=== PATIENT | male | born 1960 | race Caucasian/White ===

== ENCOUNTER → 2017-06-29 08:52 | Outpatient (CLI) | payer MEDICARE, MEDICAID, SELFPAY ==
--- NOTE | 2017-06-29 09:03 | CT_ITS ---
CT chest wo/w con HISTORY: Follow-up pulmonary nodule, tobacco use, smoker ITS.REASON: PULMONARY NODULE, SMOKER ORDERING PHYSICIAN: Marc Matta PATIENT AGE: 56 years TECHNIQUE: Axial images obtained without and with contrast. Sagittal and coronal reformatted images are also generated and reviewed. CONTRAST: 75ml Isovue 370 I.V. COMPARISON: 03/30/2016 FINDINGS: There are few scattered small lymph nodes within mediastinum some of which are calcified. These do not appear significantly changed. Coronary artery calcifications and/or stents are noted. There is linear calcification posterior to the aortic root. This may indicate an anomalous course of the circumflex artery. CT angiogram of the coronary arteries may confirm this finding if clinically warranted. There is normal heart size. No evidence of pericardial effusion. No evidence of aortic aneurysm or central pulmonary embolus There is gas present within the esophagus which may be seen with reflux. There are centrilobular emphysematous changes with hyperinflation and attenuation of the peripheral pulmonary vessels along with bronchial thickening consistent with obstructive chronic bronchitis. Calcified granulomas are present in the right upper lobe. There is a noncalcified nodule measuring approximately 4 mm in the right upper lobe medially unchanged parenchymal opacity is present in the superior segment of the left lower lobe medially similar to the previous exam consistent with an area of fibrosis. There are some minimal atelectatic changes in the left lung base with slightly elevated left hemidiaphragm posteriorly. No lobar consolidation or collapse. No suspicious pulmonary nodules apparent. Calcification noted in the gallbladder suspicious for cholelithiasis. No acute bony anomalies. IMPRESSION: 1. Emphysema/obstructive chronic bronchitis with evidence of old granulomatous disease. Stable nodular opacities as previously described. 2. 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 This may be confirmed with CT angiogram of the coronary arteries. 3. Cholelithiasis
== END ==
PROVIDERS: Family Provider Emergency Medicine; PCP Emergency Medicine; Visit Provider Psychiatry & Neurology Neurology
DX: R91.1 Solitary pulmonary nodule (principal); F17.200 Nicotine dependence, unspecified, uncomplicated
CPT/HCPCS: 71270; Q9967

== ENCOUNTER → 2017-10-23 08:41 | Outpatient (CLI) | payer MEDICARE, MEDICAID, SELFPAY ==
--- NOTE | 2017-10-23 09:06 | MR_ITS ---
MR thoracic spine wo/w con, MR 3-d myelogram/MRCP HISTORY: Multiple sclerosis evaluation Headache. ITS.REASON: MS ORDERING PHYSICIAN: Marc Matta PATIENT AGE: 57 years TECHNIQUE: Standard multiplanar multiecho sequences are performed without and with gadolinium enhancement. FINDINGS: There is mild multilevel degenerative disc disease of the thoracic spine with disc desiccation. Is present from T5 to 12. There is mild thoracic scoliosis convex right. T10-T11: Degenerative disc disease with minimal bulging disc along with facet and ligamentum hypertrophy with mild bilateral foraminal narrowing. Degenerative disc disease T11-T12. There is partial fusion of T12-L1. No demyelinating plaques are evident within the thoracic spinal cord. No enhancing lesions apparent. The spinal cord ends at the L1 level. IMPRESSION: 1. Mild spondylosis of the thoracic spine as detailed above. 2. No evidence of demyelinating plaques or enhancing lesions.
--- NOTE | 2017-10-23 09:06 | MR_ITS ---
MR head/brain wo/w con HISTORY: Follow-up multiple sclerosis ITS.REASON: MS ORDERING PHYSICIAN: Marc Matta PATIENT AGE: 57 years COMPARISON: 06/22/2016 TECHNIQUE: Standard multiplanar multiecho sequences are performed without and with contrast. FINDINGS: No midline shift, mass effect, hydrocephalus, or enhancing lesions are evident. There is no evidence of acute infarction or abnormal restricted diffusion. There are extensive periventricular T2 white matter hyperintensities with cystic components. The previously noted new lesion in the left occipital lobe has decreased in size. Previously this abnormality measured 13 x 7 mm and now measures 10 x 3 mm. Additionally, the previously noted new lesion in the right parieto-occipital junction measuring 9.2 mm now measuring 6 mm. No new lesions are evident. Edema within the plaque in the left frontal parietal junction in the left frontal parietal junction has also somewhat improved. No enhancement evident of the plaques. Marked thinning of the corpus callosum once again noted. The cerebellopontine angles, cerebellum, and brainstem are unremarkable. There is slight increase T2 signal within the right aspect of the phillip posteriorly unchanged. There is mild mucosal thickening of sphenoid sinus on the left. IMPRESSION: 1. Overall slight improvement in the multiple white matter lesions consistent with multiple sclerosis as described above with decreased prominence of at least 3 areas as described above. 2. No new lesions evident IMPRESSION:
--- NOTE | 2017-10-23 09:06 | MR_ITS ---
MR cervical spine wo/w con HISTORY: Multiple sclerosis, evaluate for cervical cord involvement. Severe headaches. ITS.REASON: MS ORDERING PHYSICIAN: Marc Matta PATIENT AGE: 57 years COMPARISON: MRI 03-30-16 TECHNIQUE: Standard multiplanar multiecho sequences are performed without and with gadolinium enhancement. 3-D MIP and myelographic images are also rendered and reviewed FINDINGS: There is normal alignment. The craniocervical junction has an unremarkable appearance. No demyelinating plaques evident within the cervical cord. No enhancing lesions apparent. There is accentuation of the cervical lordosis as before . C2-C3: Unremarkable. C3-C4: Minimal central disc protrusion versus prominent posterior longitudinal ligament without impingement. C4-C5: Mild degenerative disc disease with minimal bulging disc slightly eccentric to the left along with left-sided facet hypertrophic change causing mild left-sided foraminal narrowing. There is narrowing of the canal at this level at 10 mm. No cord impingement. C5-C6: Mild degenerative disc disease with mild left foraminal narrowing from facet and uncovertebral hypertrophy. C6-C7: Mild degenerative disc disease. C7-T1: Unremarkable Overall no significant change from 03/30/2016. IMPRESSION: 1. Overall no significant change from 03/30/2016 2. No enhancing lesions or demyelinating plaques evident. 3. Cervical spondylosis as described above. Please see above for detailed description at each level. There is canal narrowing at 10 mm at C4-C5 without obvious impingement
[2017-10-23 09:08] LABS: Blood Urea Nitrogen 10 mg/dL (7-18); Creatinine,Serum 0.81 mg/dL (0.70-1.30); Estimated Glomerular Filt Rate 98 ml/min (>60); GFR (African American) 118 ML/MIN (>60)
== END ==
PROVIDERS: Family Provider Emergency Medicine; PCP Emergency Medicine; Visit Provider Psychiatry & Neurology Neurology
DX: G35 Multiple sclerosis (principal)
CPT/HCPCS: 36415; 70553; 72156; 72157; 76376; 82565; 84520

== ENCOUNTER → 2019-01-30 12:45 | Outpatient (CLI) | payer MEDICARE, MEDICAID, SELFPAY ==
--- NOTE | 2019-01-30 13:24 | MR_ITS ---
PROCEDURE: MR HEAD/BRAIN WO CON CLINICAL INDICATION: MS, MURMUR Follow-up multiple sclerosis COMPARISON: [facility] MRI-BRAIN W/WO from 06/22/2016 BRAINWW MR head/brain wo/w con from 10/23/[address] head/brain wo con from 01/18/2019 TECHNIQUE: Routine multiplanar multi echo sequences are performed without gadolinium enhancement. FINDINGS: There is generalized atrophy. No evidence of acute infarction. No midline shift. Patient has a history of multiple sclerosis. There are extensive periventricular and subcortical white matter changes which were felt to have increased on the previous CT scan. However, comparing the 2 MRI is of 01/30/2019 and 10/23/2017, the extensive white matter signal alteration does not appear significantly changed. No restricted diffusion. No evidence of acute infarction. The cerebellopontine angles, cerebellum, and brainstem are unremarkable. There is marked thinning of the corpus callosum as before. The pituitary and optic chiasm have an unremarkable appearance. No mastoid effusion or sinus air-fluid level. IMPRESSION: Overall stable MRI appearance of the brain. Diffuse white matter lesions are once again noted not significantly changed consistent with patient's given history of multiple sclerosis Dictated by: Jonh Cruz MD 02/02/2019 09:07 Signed by: <Electronically signed by Jonh Cruz MD in [place]> 02/02/2019 09:07
== END ==
PROVIDERS: PCP Emergency Medicine; Visit Provider Psychiatry & Neurology Neurology
DX: R01.1 Cardiac murmur, unspecified (principal); G35 Multiple sclerosis
CPT/HCPCS: 70551; 93306

== ENCOUNTER → 2019-04-12 07:02 | Outpatient (CLI) | payer MEDICARE, SELFPAY ==
--- NOTE | 2019-04-12 | CA_ITS ---
APPROVED REPORT Exam: Pharmacologic Technologist: Yady Lomeli, Ht: 5 ft 10 in Wt: 154 lbs BSA: 1.87 m2 HR: 66 bpm BP: 126/57 mmHg Rhythm: NSR,EARLY REPOLARIZATION INFERIORLY Medical History Medical History: HTN Medications: Lisinopril,,,,, Metoprolol,,,,, Gabapentin,,,,, AmiTRIPTYLINE,,,,, Cardiac Risk Factors: HTN, Smoking Stress Test Details Test: LEXISCAN HR Resting HR: 62 bpm Max Heart Rate (APMHR): 161 bpm Max HR Achieved: 97 bpm Target HR (85% APMHR): 136 bpm % of APMHR: 60 Recovery HR: 87 bpm BP Resting BP: 126.0/57.0 mmHg Max BP: 126.0/57.0 mmHg Recovery BP: 119.0/67.0 mmHg ECG Resting ECG: NSR,EARLY REPOLARIZATION INFERIORLY Clinical Reason for Termination: Completed Protocol Exercise duration: 04:09 min Highest Stage Achieved: Exercise capacity: 1.0 METs Stress ECG Conclusion DURING INFUSION PATIENT HAD NO SYMPTOMS. NO ARRHYTHMIAS/ECTOPY. < 1.5MM ST SEGMENT CHANGES. NON-DIAGNOSTIC. Test Summary REST . . . . . . . Sitting REST 08:42 . . 62 . 126/ 57 . . Stage 1 . . . . . . . Cardiolite injected Stage 1 01:00 . . 83 . . . . Stage 2 01:00 . . 96 . 122/ 58 . . Stage 3 01:00 . . 91 . 126/ 68 . . Stage 4 01:00 . . 88 . 123/ 68 . . Stage 4 01:09 . . 87 . 123/ 68 . Stop exercise at 04:09 RECOVERY 01:00 . . 87 . . . . RECOVERY 02:00 . . 85 . . . . RECOVERY 03:00 . . 82 . 124/ 64 . . RECOVERY 04:00 . . 80 . 124/ 65 . . RECOVERY 04:14 . . 78 . 124/ 65 . . Electronically signed by : Nathan Collier, 04/12/2019 14:37:56
--- NOTE | 2019-04-12 07:05 | NM_ITS ---
APPROVED REPORT Exam: Nuclear Stress Test Indication: HTN, TOB USE, FM. HX., C.P., VENESSA Patient Location: Outpatient Stress Tech: Sabrina Yani NC Tech:SHAYLEE Rose RT(R)(N) Ht: 5 ft 10 in Wt: 154 lbs HR: 66 bpm BP: 126/57 mmHg BSA: 1.87 m2 BMI: 22.0 History: HTN, TOB USE, FM. HX., C.P., VENESSA Procedure: Patient received a 0.4 mg of intravenous Lexiscan, resting heart rate 66 bpm, resting blood pressure 126/57 mmHg, with Lexiscan maximum heart rate achived was 83 bpm which is % of the maximum predicted heart rate and blood pressure was 122/58 mmHg. With Lexiscan, patient denied any complaint of chest pain. Cardiac Stress and Resting SPECT Images: Cardiac Stress and Resting SPECT images were obtained using technetium 99m Myoview 30.4 mCi stress and 10.09 mCi at rest. EF is low at 49%. There are fixed defects in the apex and inferior wall consistent with areas of infarction Decrease activity in the septum near the base of the heart which shows some filling in on rest images suggesting some ischemic change Conclusion: EF is low at 49%. There are fixed defects in the apex and inferior wall consistent with areas of infarction Decrease activity in the septum near the base of the heart which shows some filling in on rest images suggesting some ischemic change Electronically signed by : Jonh Cruz MD 04/12/2019 17:54:52
--- NOTE | 2019-04-12 07:05 | CA_ITS ---
APPROVED REPORT Janitorial Tech: KATINA Laterality: Bilateral Study Quality: Good Indications: dizziness and falls H/O CVA Doppler Spectral Velocity Analysis dICA (R) 76.50/23.50 cm/s dICA (L) 88.30/24.70 cm/s Jluis (R) 48.20/16.80 cm/s Jluis (L) 86.70/23.10 cm/s pICA (R) 91.20/22.50 cm/s pICA (L) 82.90/21.90 cm/s dCCA (R) 66.30/19.20 cm/s Vert (L) 28.30/5.30 cm/s pCCA (R) 72.20/18.70 cm/s Vert (R) 35.30/9.00 cm/s Findings Duplex evaluation demonstrates stenosis of the right proximal internal carotid artery in the range of 20-49% with PSV <140 cm/sec, EDV <100 cm/sec, and IC/CC Ratio <4.0.Duplex evaluation demonstrates stenosis of the left proximal internal carotid artery in the range of 20-49% with PSV <140 cm/sec, EDV <100 cm/sec, and IC/CC Ratio <4.0. Both appear to be upper end of scale.Antegrade flow seen bilateral vertebral arteries. Conclusion Duplex evaluation demonstrates stenosis of the right proximal internal carotid artery in the range of 20-49% with PSV <140 cm/sec, EDV <100 cm/sec, and IC/CC Ratio <4.0.Duplex evaluation demonstrates stenosis of the left proximal internal carotid artery in the range of 20-49% with PSV <140 cm/sec, EDV <100 cm/sec, and IC/CC Ratio <4.0. Both appear to be upper end of scale.Antegrade flow seen bilateral vertebral arteries. Electronically signed by : Jonh Cruz MD 04/12/2019 17:40:14
--- NOTE | 2019-04-12 09:10 | HMH.ITSHM ---
Current Home Medications as stated by this patient Carmine López JR or healthcare sales representative. [] gabapentin lisinopril amitriptyline metoprolol
== END ==
PROVIDERS: PCP Emergency Medicine; Visit Provider Nurse Practitioner Family
DX: I65.23 Occlusion and stenosis of bilateral carotid arteries; R42 Dizziness and giddiness; R06.02 Shortness of breath; R07.9 Chest pain, unspecified; R94.31 Abnormal electrocardiogram [ECG] [EKG]
CPT/HCPCS: 78452; 93017; 93880; A9502; J2785

== ENCOUNTER → 2019-05-08 06:54 | Outpatient (CLI) | payer MEDICARE, SELFPAY ==
--- NOTE | 2019-05-08 06:59 | CT_ITS ---
PROCEDURE: CT ANGIO CORONARY ARTERY CLINCAL INDICATION: cad Coronary artery disease, abnormal heart cath with nonvisualization of the circumflex artery. COMPARISON: [facility] from 05/02/2019 TECHNIQUE: IV Contrast: 100ml Optiray 350 Axial images obtained with sagittal and coronal reformats. All CT scans at the facility use one or more dose reduction, viz: automated exposure control, ma/kV adjustment per patient size (including targeted exams where dose is matched to indication, i.e. head), or iterative reconstruction technique. Standard gated CTA technique performed. The patient's heart rate was in the 60s therefore, no meds were needed to establish bradycardia. The images were reviewed with the patient on the CT table and deemed to be adequate. There were no immediate complications. Post processing performed on the [employer] workstation. FINDINGS: No aortic aneurysm or dissection of the aortic root. Left main: Eccentric calcific plaque is present at the distal left main coronary artery with approximately 30 percent stenosis. Lad: Eccentric plaque is present proximally with approximately 50 to 60 percent smooth segments stenosis.. This was estimated at 30 percent on the coronary angiogram which should be more accurate than the CT a especially with the moderate degree of calcific plaque which tends to overestimate the degree of stenosis on the CT angiogram. Calcific plaque tracks along the mid aspect of the LAD with segmental areas of narrowing up to 60 percent. The distal LAD has an unremarkable appearance. There does appear to be approximately 50 percent stenosis of the ostium of the 1st diagonal. Circumflex: The circumflex artery originates from the right side of the aorta with a separate ostium lateral to the ostium of the RCA. There does appear to be a high-grade stenosis at the ostium of the circumflex the greater than 60 percent. Extensive calcific plaque is present within the circumflex artery proximally with areas of stenosis up to 50 percent. The circumflex artery extends along the right lateral aspect of the aortic root and goes between the left ventricle and the left atrium. There is 6 stents of plaque in this portion of the circumflex artery with segmental areas of stenosis of greater than 60 percent. The circumflex then descends along the posterior aspect of the heart. The RCA is medium size vessel with some calcific plaque proximally. Motion artifact does somewhat obscure fine detail. The calcific plaque is eccentric with less than 50 percent stenosis. The RCA does not give rise to the posterior lateral branch to the left ventricle. There is: Dominant supply to the inferior wall by both the LAD and the RCA giving rise to the PDA Fibrotic changes are present in the lingula. IMPRESSION: 1. 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 This does not represent and inter arterial coarse. This is a non malignant course. 2. Multi-vessel calcific plaque including the distal left main, lad, RCA, and circumflex artery. Patient has had a recent cardiac catheterization and correlation with that exam is needed. The calcific plaque tends to overestimate the degree of stenosis. On the CT angiogram there is felt to be at least 60 percent stenosis of the mid LAD, severe stenosis of the ostium of the circumflex of greater than 60 percent and severe stenosis of the mid aspect of the circumflex of greater than 60 percent. Calcific plaque is present at the ostium of the RCA without significant stenosis. Dictated by: Jonh Cruz MD 05/08/2019 14:03 Electronically signed by Jonh Cruz MD in [place] 05/14/2019 09:03
[2019-05-08 07:26] VITALS: BP 143/64; PULSE 72; RESP 18; TEMP 36.6; O2SAT 98
[2019-05-08 07:31] VITALS: BP 130/69; PULSE 64; RESP 18; O2SAT 98
[2019-05-08 07:45] VITALS: BP 128/68; PULSE 64; RESP 18; O2SAT 99
[2019-05-08 08:00] VITALS: BP 117/65; PULSE 62; RESP 18; O2SAT 97
--- NOTE | 2019-05-08 08:15 | PC.NURSE ---
Pt out of preop to radiology, report given to radiology.
== END ==
PROVIDERS: PCP Emergency Medicine; Visit Provider Internal Medicine
DX: I25.10 Atherosclerotic heart disease of native coronary artery without angina pectoris (principal)
CPT/HCPCS: 75574; Q9967

== ENCOUNTER 2019-09-20 15:31 | Emergency (ER) | payer MEDICARE, SELFPAY ==
[2019-09-20 15:51] VITALS: BP 141/79; PULSE 71; RESP 17; TEMP 36.6; O2SAT 99; BMI 22.1
--- NOTE | 2019-09-20 15:57 | XR_ITS ---
PROCEDURE: XR PELVIS 1-2V CLINICAL INDICATION: fall Posttraumatic pain COMPARISON: Pelvis from 01/18/2019 TECHNIQUE: XR Pelvis AP View FINDINGS: No fracture or dislocation is evident. There are severe osteoarthritic changes of the right hip with osteosclerosis of the acetabulum and significant sub articular cystic changes of the femoral head No lytic or blastic change. IMPRESSION: No acute fracture. TECHNIQUE Osteoarthritis of the right hip Dictated by: Jonh Cruz MD 09/20/2019 16:43 Electronically signed by Jonh Cruz MD in [place] 09/20/2019 16:43
--- NOTE | 2019-09-20 15:57 | CT_ITS ---
PROCEDURE: CT HEAD/BRAIN WO CON CLINICAL INDICATION: fallls Fall with and trauma COMPARISON: HEADWO CT head/brain wo con from 01/18/2019 TECHNIQUE: Axial images obtained. All CT scans at the facility use one or more dose reduction, viz: automated exposure control, ma/kV adjustment per patient size (including targeted exams where dose is matched to indication, i.e. head), or iterative reconstruction technique. FINDINGS: No midline shift, mass effect, intracranial hemorrhage, hydrocephalus, or extra-axial fluid collection is evident. There is generalized atrophy with hypoattenuation of the periventricular white matter consistent with microangiopathic changes.. There are scattered areas decreased attenuation in the white matter in the periventricular region somewhat focal in nature in keeping with patient's history of multiple sclerosis similar to the previous exam. The calvarium has an unremarkable appearance. No mastoid effusion. No sinus air-fluid level. IMPRESSION: Atrophy with chronic changes, no acute finding. Scattered periventricular white matter hypodensities in keeping with patient's history multiple sclerosis Dictated by: Jonh Cruz MD 09/20/2019 16:49 Electronically signed by Jonh Cruz MD in [place] 09/20/2019 16:49
--- NOTE | 2019-09-20 15:57 | CT_ITS ---
PROCEDURE: CT CERVICAL SPINE WO CON CLINICAL INDICATION: fallls Posttraumatic pain, multiple falls with injury and pain COMPARISON: [facility] CT cervical spine wo con from 01/18/2019 TECHNIQUE: Axial images obtained with sagittal and coronal reformats. All CT scans at the facility use one or more dose reduction, viz: automated exposure control, ma/kV adjustment per patient size (including targeted exams where dose is matched to indication, i.e. head), or iterative reconstruction technique. Axial spiral CT scanning performed of the cervical spine beginning at the base of the skull and continuing to the upper T-spine. 3-D multiplanar reconstruction with 3-D manipulation of volumetric data set in image rendering was completed by the radiologist and/or technologist with the supervision of the radiologist on independent workstation. FINDINGS: There is normal alignment. No acute fracture or dislocation. There is mild multilevel cervical spondylosis with degenerative disc disease at C2-C3, C3-C4 with mild left foraminal narrowing, C4-C5 with small left paracentral anterior osteophyte, degenerative disc disease C5-C6 with mild left foraminal narrowing, mild bilateral foraminal narrowing C6-7. Lung apices are clear. Coronary artery calcifications are present. IMPRESSION: 1. No acute fracture. 2. Cervical spondylosis Dictated by: Jonh Cruz MD 09/20/2019 16:46 Electronically signed by Jonh Cruz MD in [place] 09/20/2019 16:46
--- NOTE | 2019-09-20 15:57 | XR_ITS ---
PROCEDURE: XR CHEST 2V CLINICAL HISTORY: falls Posttraumatic pain, fall with injury and pain, trauma protocol COMPARISON: CXR CHEST(2 VIEWS-NOT PORTABLE) from 03/14/[address] chest wo/w con from 06/29/2017 [id number] XR chest portable from 02/22/2018 Chest from 01/18/2019 FINDINGS: The cardiomediastinal silhouette and pulmonary vascularity are within normal limits. Calcified granuloma is present in the right midlung. There is a vague opacity in the left mid upper lung measuring approximately 3 cm. This is not readily apparent on the previous exam there are mild atelectatic changes in the left lung base. There is an area of eventration along the left hemidiaphragm and medially and posteriorly. There are changes of COPD Degenerative changes thoracic spine and shoulders with suspected subarticular cystic change of the right humeral head IMPRESSION: COPD with a vague nodular opacity in the left mid upper lung zone laterally possibly due to a pleural base nodule. Nonemergent CT may provide further evaluation. Dictated by: Jonh Cruz MD 09/20/2019 16:55 Electronically signed by Jonh Cruz MD in [place] 09/20/2019 16:55
[2019-09-20 16:22] LABS: Basophils # 0.1 K/mm3 (0-0.2); Basophils % 0.6 % (0.1-2.0); Eosinophils # 0.6 K/mm3 (0.0-0.4); Eosinophils % 4.6 % (0.1-12.0); Hematocrit 46.2 % (42.0-52.0); Hemoglobin 15.2 g/dL (14.1-18.0); Lymphocytes % 15.4 % (10-50); Mean Corpuscular HGB Conc 32.8 g/dL (31.8-35.4); Mean Corpuscular Hemoglobin 30.9 pg (27.0-31.2); Mean Corpuscular Volume 94.2 fl (80-94); Mean Platelet Volume 8.2 fl (7.4-10.4); Monocytes # 0.8 K/mm3 (0.1-1.0); Monocytes % 5.7 % (1.7-9.3); Neutrophils # 9.6 K/mm3 (1.8-7.8); Neutrophils % 73.6 % (37.0-80.0); Platelet Count 290 K/mm3 (142-424)
[2019-09-20 16:28] LABS: Chloride 99 mmol/L (98-107); Potassium 4.1 mmoL/L (3.5-5.1); Sodium 136 mmol/L (136-145)
[2019-09-20 16:31] LABS: Alanine Aminotransferase 14 U/L (12-78); Albumin Level 4.8 g/dl (3.5-5.0); Albumin/Globulin Ratio 1.4 (1.1-1.8); Alkaline Phosphatase 121 U/L (38-126); Anion Gap 14.1 mEq/L (5-15); Aspartate Amino Transferase 28 U/L (17-59); Bilirubin,Total 0.7 mg/dl (0.2-1.3); Blood Urea Nitrogen 11 mg/dl (9-20); Carbon Dioxide 27 mmol/L (22.0-30.0); Creatinine Clearance Estimated 97 mL/min (50-200); Estimated Glomerular Filt Rate 99 ml/min (>60); GFR (African American) 119 ML/MIN (>60); Globulin 3.4 g/dL (1.3-3.2); Glucose 94 mg/dl (74-100); Total Protein,Serum 8.2 g/dl (6.3-8.2)
[2019-09-20 16:32] LABS: Lactic Acid 1.8 mmol/L (0.7-2.1)
[2019-09-20 16:35] LABS: C-Reactive Protein 4.2 mg/L (0-4)
[2019-09-20 16:47] LABS: Troponin I < 0.01 ng/ml (0.00-0.034)
[2019-09-20 16:54] LABS: Erythrocyte Sedimentation Rate 3 mm/hr (0-20)
[2019-09-20 16:55] LABS: Microscopic, Urine URINE MICROSCOPIC (MICROSCOPIC)
[2019-09-20 16:57] LABS: Appearance,Urine CLEAR (Clear); Bilirubin,Urine Negative (Negative); Blood, Urine Negative (Negative); Color,Urine YELLOW (Yellow); Glucose,Urine (UA) Negative (Negative); Ketones,Urine Negative (Negative); Leukocyte Esterase,Urine Negative (Negative); Nitrate,Urine Negative (Negative); Protein,Urine Negative (Negative); Urobilinogen,Urine 0.2 EU/dl (0.2)
[2019-09-20 17:04] LABS: RBC,Urine Occasional #/hpf (0-3); Squamous Epithelial Cell,Urine Occasional #/hpf (0-5)
--- NOTE | 2019-09-20 18:36 | HMH.EDGENADL ---
ED Disposition Clinical Impression: Fall Qualifiers: Encounter type: initial encounter Qualified Code(s): W19.XXXA - Unspecified fall, initial encounter Chest pain Qualifiers: Chest pain type: unspecified Qualified Code(s): R07.9 - Chest pain, unspecified Disposition: Home, Self-Care Condition on Discharge: Good Additional Instructions: Reviewing your labs and radiology we are discharging you home at this time. No acute injury was noted on your x-rays or CTs. Recommend careful use of a walker whenever ambulating. Should you fall again, should your chest pain worsen, please return to the emergency department for further evaluation. Chest x-ray showed evidence of a pulmonary nodule. I would recommend outpatient CT scan of your chest for further evaluation after discussing this with your primary care physician. Referrals: Luis E Roque MD [Primary Care Provider] - - Critical Care Critical Care Time: No Attestation: On 09/20/19, the high probability of a clinically significant, sudden or life threatening deterioration of the following system(s) required my full and direct attention, intervention and personal management. The time I documented below is in addition to time spent performing reported procedures but includes the following listed in this critical care notation. Medical Decision Making - Sen Inquiry Pt receiving controlled substance: No Sen was queried for this patient: No Vital Signs: 09/20/19 15:51 Temperature 97.8 F Temperature Source Oral Pulse Rate [Right Radial] 71 Respiratory Rate 17 Blood Pressure [Right Arm] 141/79 H Blood Pressure Mean [Right Arm] 99 02 Sat by Pulse Oximetry 99 Oxygen Delivery Method Room Air - Lab Data Lab Results 09/20/19 16:10: Troponin I < 0.01, C-Reactive Protein 4.2 H 09/20/19 16:10: WBC 13.0 H, RBC 4.90, Hgb 15.2, Hct 46.2, MCV 94.2 H, MCH 30.9, MCHC 32.8, RDW 14.0, Plt Count 290, MPV 8.2, Neut % (Auto) 73.6, Lymph % (Auto) 15.4, [place] % (Auto) 5.7, Eos % (Auto) 4.6, Baso % (Auto) 0.6, Neut # (Auto) 9.6 H, Lymph # (Auto) 2.0, [place] # (Auto) 0.8, Eos # (Auto) 0.6 H, Baso # (Auto) 0.1, ESR 3 09/20/19 16:10: Sodium 136, Potassium 4.1, Chloride 99, Carbon Dioxide 27, Anion Gap 14.1, BUN 11, Creatinine 0.80, Estimated Creat Clear 97, Estimated GFR 99, Est GFR ( Amer) 119, Glucose 94, Calcium 10.0, Total Bilirubin 0.7, AST 28, ALT 14, Alkaline Phosphatase 121, Total Protein 8.2, Albumin 4.8, Globulin 3.4 H, Albumin/Globulin Ratio 1.4 09/20/19 16:10: Lactate 1.8 09/20/19 16:10: Influenza Type A Ag Negative, Influenza Type B Ag Negative 09/20/19 16:10: D-Dimer 327 09/20/19 16:20: Urine Color Yellow, Urine Appearance Clear, Urine pH 7.0, Ur Specific [place] 1.010, Urine Protein Negative, Urine Glucose (UA) Negative, Urine Ketones Negative, Urine Blood Negative, Urine Nitrate Negative, Urine Bilirubin Negative, Urine Urobilinogen 0.2, Ur Leukocyte Esterase Negative, Urine RBC Occasional, Urine WBC None, Ur Squamous Epith Cells Occasional, Urine Bacteria None 09/20/19 18:45: Troponin I < 0.01 Result diagrams: 09/20/19 16:10 09/20/19 16:10 Orders (Tests/Meds): ED MEDICATIONS Discontinued Medications Generic Name Dose Route Start Last Admin Trade Name Freq PRN Reason Stop Dose Admin Sodium Chloride 1,000 mls @ 999 mls/hr 09/20/19 16:00 09/20/19 16:41 Sod Chlor 0.9% 1000ml Bag IV 09/20/19 17:00 999 mls/hr .Q1H1M CAROLA Administration ORDERS Category Date Time Status Troponin I Q3H Lab 09/20/19 22:00 Ordered Blood Culture Stat Micro 09/20/19 16:10 Received Medical Decision Narrative: In summary patient is a 59-year-old male with a past medical history of multiple sclerosis, who presents the emergency department for evaluation after a fall. Patient complains of left-sided chest pain. Patient's vital signs within normal limits. Differential diagnosis includes but is not limited to rib fracture, rib bruising, ACS, pulmonary embol
[2019-09-20 19:08] LABS: D-Dimer 327 ng/mL (0-400)
[2019-09-20 19:16] LABS: Troponin I < 0.01 ng/ml (0.00-0.034)
[2019-09-20 19:55] VITALS: BP 135/76; PULSE 68; RESP 17; TEMP 36.6; O2SAT 99
== END 2019-09-20 19:45 | disposition home or self-care (01) ==
PROVIDERS: Emergency Provider Emergency Medicine; PCP Emergency Medicine
DX: R07.9 Chest pain, unspecified (principal); S09.8XXA Other specified injuries of head, initial encounter; R29.6 Repeated falls; G35 Multiple sclerosis; Z79.899 Other long term (current) drug therapy; J44.9 Chronic obstructive pulmonary disease, unspecified; I25.10 Atherosclerotic heart disease of native coronary artery without angina pectoris; I10 Essential (primary) hypertension; Z87.39 Personal history of other diseases of the musculoskeletal system and connective tissue; Z72.0 Tobacco use; Z82.49 Family history of ischemic heart disease and other diseases of the circulatory system; Z83.438 Family history of other disorder of lipoprotein metabolism and other lipidemia
CPT/HCPCS: 70450; 71046; 72125; 72170; 80053; 81001; 83605; 84484; 85025; 85378; 85651; 86140; 87040; 87077; 87275; 87276; 96365; 99284

== ENCOUNTER → 2020-04-13 08:50 | Outpatient (CLI) | payer MEDICARE, SELFPAY ==
--- NOTE | 2020-04-13 09:11 | MR_ITS ---
PROCEDURE: MR HEAD/BRAIN WO/W CON CLINICAL INDICATION: MS, FREQUENT FALLS, IMPAIRED GAIT MS FOLLOW UP, PT DIAGNOSED WITH MS 3 YEARS AGO, FREQUENT FALLS, RT LEG WEAKNESS. COMPARISON: MR MR HEAD/BRAIN WO CON from 01/30/[address] HEAD/BRAIN WO CON from 09/20/[address] CERVICAL SPINE WO CON from 09/20/2019 TECHNIQUE: Routine multiplanar multi echo sequences are performed without gadolinium enhancement. FINDINGS: No midline shift, mass effect, intracranial hemorrhage, or hydrocephalus is evident. No evidence of acute infarction. The cerebellopontine angle, cerebellum, and brainstem have an unremarkable appearance. There are diffuse periventricular T2 white matter hyperintensities the as previously described. Within these hyperintensities are heterogeneous areas of decreased T2 signal there is some involvement of the basal ganglia and also of the corpus callosum. For the most part these are not significantly changed. There is 1 T2 hyperintensity in the right frontal parietal region series 6, image 17 which is slightly more prominent. Many of these lesions are hypointense on T1 suggesting encephalomalacia change. No enhancing lesions are evident. No midline shift or mass effect. DIR images are obtained with no additional abnormalities apparent. The upper cervical cord is not well delineated due to overlying artifact. No mastoid effusion or sinus air-fluid level. IMPRESSION: Diffuse periventricular and subcortical T2 white matter hyperintensity some of which show decreased T1 signal centrally consistent with patient's history of multiple sclerosis with encephalomalacia changes of many of the lesions. No new lesions or enhancing lesions are evident. One lesion in the right parietal frontal area is slightly larger compared to the previous exam. Dictated by: Jonh Cruz MD 04/15/2020 09:19 Jonh Cruz MD in [place] 04/15/2020 09:19
[2020-04-13 09:16] LABS: Blood Urea Nitrogen 13 mg/dl (9-20); Estimated Glomerular Filt Rate 86 ml/min (>60); GFR (African American) 104 ML/MIN (>60)
== END ==
PROVIDERS: PCP Emergency Medicine; Visit Provider Psychiatry & Neurology Neurology
DX: G35 Multiple sclerosis (principal); R26.9 Unspecified abnormalities of gait and mobility; M54.5 Low back pain; Z79.899 Other long term (current) drug therapy
CPT/HCPCS: 36415; 70553; 82565; 84520; A9576

== ENCOUNTER → 2020-06-01 17:56 | Outpatient (CLI) | payer MEDICARE, SELFPAY ==
[2020-06-01 19:01] LABS: Alanine Aminotransferase 14 U/L (12-78); Albumin Level 4.8 g/dl (3.5-5.0); Albumin/Globulin Ratio 1.4 (1.1-1.8); Alkaline Phosphatase 122 U/L (38-126); Anion Gap 11.5 mEq/L (5-15); Aspartate Amino Transferase 26 U/L (17-59); Bilirubin,Total 0.8 mg/dl (0.2-1.3); Blood Urea Nitrogen 13 mg/dl (9-20); Calcium 10.1 mg/dl (8.4-10.2); Carbon Dioxide 31 mmol/L (22.0-30.0); Chloride 99 mmol/L (98-107); Estimated Glomerular Filt Rate 86 ml/min (>60); GFR (African American) 104 ML/MIN (>60); Globulin 3.4 g/dL (1.3-3.2); Glucose 115 mg/dl (74-100); Potassium 4.5 mmoL/L (3.5-5.1); Sodium 137 mmol/L (136-145); Total Protein,Serum 8.2 g/dl (6.3-8.2)
[2020-06-01 19:04] LABS: Basophils # 0.1 K/mm3 (0-0.2); Basophils % 1.2 % (0.1-2.0); Eosinophils # 0.2 K/mm3 (0.0-0.4); Eosinophils % 2.8 % (0.1-12.0); Hematocrit 47.8 % (42.0-52.0); Hemoglobin 15.4 g/dL (14.1-18.0); Lymphocytes # 1.9 K/mm3 (0.7-4.5); Lymphocytes % 23.2 % (10-50); Mean Corpuscular HGB Conc 32.2 g/dL (31.8-35.4); Mean Corpuscular Hemoglobin 31.3 pg (27.0-31.2); Mean Platelet Volume 9.4 fl (7.4-10.4); Monocytes # 0.6 K/mm3 (0.1-1.0); Monocytes % 7.8 % (1.7-9.3); Neutrophils # 5.4 K/mm3 (1.8-7.8); Neutrophils % 65.1 % (37.0-80.0); Platelet Count 349 K/mm3 (142-424); Red Blood Count 4.92 M/mm3 (4.60-6.20); Red Cell Distribution Width 14.6 % (11.5-17.5); White Blood Count 8.3 K/mm3 (4.8-10.8)
[2020-06-03 11:22] LABS: Hep A Ab, IgM Negative (Negative); Hepatitis B Core Antibody IgM Negative (Negative); Hepatitis B Surface Antigen Negative (Negative)
[2020-06-03 12:04] LABS: HIV Screen 4th Generation wRfx Non Reactive (Non Reactive); Hepatitis C Antibody <0.1 s/co ratio (0.0-0.9)
== END ==
PROVIDERS: Visit Provider Physician Assistant
DX: G35 Multiple sclerosis (principal); W19.XXXA Unspecified fall, initial encounter; Z20.2 Contact with and (suspected) exposure to infections with a predominantly sexual mode of transmission; Z11.4 Encounter for screening for human immunodeficiency virus [HIV]; Z11.59 Encounter for screening for other viral diseases
CPT/HCPCS: 80053; 80074; 85025; 86703; G0432

== ENCOUNTER → 2021-03-26 19:45 | Outpatient (CLI) | payer MEDICARE, SELFPAY ==
[2021-03-26 19:54] LABS: Basophils # 0.1 K/mm3 (0-0.2); Basophils % 0.8 % (0.1-2.0); Eosinophils # 0.2 K/mm3 (0.0-0.4); Eosinophils % 1.4 % (0.1-12.0); Hematocrit 47.1 % (42.0-52.0); Hemoglobin 15.1 g/dL (14.1-18.0); Lymphocytes # 1.9 K/mm3 (0.7-4.5); Lymphocytes % 17.2 % (10-50); Mean Corpuscular HGB Conc 32.1 g/dL (31.8-35.4); Mean Corpuscular Hemoglobin 31.5 pg (27.0-31.2); Mean Corpuscular Volume 98.3 fl (80-94); Monocytes # 0.8 K/mm3 (0.1-1.0); Monocytes % 7.5 % (1.7-9.3); Platelet Count 300 K/mm3 (142-424); Red Blood Count 4.79 M/mm3 (4.60-6.20); Red Cell Distribution Width 13.8 % (11.5-17.5); White Blood Count 10.9 K/mm3 (4.8-10.8)
[2021-03-26 20:10] LABS: Alanine Aminotransferase 13 U/L (12-78); Albumin Level 4.3 g/dl (3.5-5.0); Albumin/Globulin Ratio 1.5 (1.1-1.8); Alkaline Phosphatase 102 U/L (38-126); Anion Gap 9.7 mEq/L (5-15); Aspartate Amino Transferase 28 U/L (17-59); Bilirubin,Total 0.6 mg/dl (0.2-1.3); Blood Urea Nitrogen 9 mg/dl (9-20); Calcium 9.4 mg/dl (8.4-10.2); Carbon Dioxide 29 mmol/L (22.0-30.0); Chloride 104 mmol/L (98-107); Cholesterol 178 mg/dl (140-200); Estimated Glomerular Filt Rate 115 ml/min (>60); GFR (African American) 139 ML/MIN (>60); Globulin 2.8 g/dL (1.3-3.2); Glucose 107 mg/dl (74-100); Potassium 4.7 mmoL/L (3.5-5.1); Sodium 138 mmol/L (136-145); Total Protein,Serum 7.1 g/dl (6.3-8.2); Triglycerides 75 mg/dl (30-150); VLDL Cholesterol 15 mg/dL (0-40)
[2021-03-26 20:20] LABS: Amphetamine/Metha Screen,Urine Negative ng/ml (<1000); Barbiturates Screen,Urine Negative ng/ml (<200)
[2021-03-26 20:21] LABS: Direct LDL Cholesterol 47.15 mg/dL (100-129)
[2021-03-26 20:21] LABS: Benzodiazepines Screen,Urine Negative ng/ml (<200); Cannabinoid Screen,Urine Negative ng/ml (<50)
[2021-03-26 20:22] LABS: Cocaine Screen,Urine Negative ng/ml (<300)
[2021-03-26 20:23] LABS: Methadone Screen,Urine Negative ng/ml (<300); Opiate Screen,Urine Negative ng/ml (<300)
[2021-03-26 20:24] LABS: Chol/HDL Ratio 1.5 (1-3.5); HDL Cholesterol 115 mg/dl (40-60)
[2021-03-26 20:24] LABS: Phencyclidine Screen,Urine Negative ng/ml (<25)
[2021-03-26 20:27] LABS: T4 (Thyroxine) 6.2 ug/dl (5.53-11.0)
[2021-03-26 20:40] LABS: Thyroid Stimulating Hormone 0.82 uIU/mL (0.465-4.68)
[2021-04-04 03:52] LABS: 1,25 Dihydroxy Vitamin D 56 pg/mL (.); 1,25-Dihydroxy, Vitamin D-2 <10 pg/mL (.); 1,25-Dihydroxy, Vitamin D-3 53 pg/mL (.)
== END ==
PROVIDERS: Visit Provider Nurse Practitioner Family
DX: M47.812 Spondylosis without myelopathy or radiculopathy, cervical region (principal); G89.29 Other chronic pain; M54.9 Dorsalgia, unspecified; W19.XXXA Unspecified fall, initial encounter; I10 Essential (primary) hypertension; I25.10 Atherosclerotic heart disease of native coronary artery without angina pectoris
CPT/HCPCS: 80053; 80061; 80305; 82652; 84436; 84443; 85025

== ENCOUNTER → 2021-05-14 13:10 | Outpatient (CLI) | payer MEDICARE, MEDICAID, SELFPAY ==
--- NOTE | 2021-05-14 13:11 | CA_ITS ---
APPROVED REPORT EXAM: Comprehensive 2D, Doppler, and color-flow Echocardiogram Whipped Topping Mixer: Mar Ayers RT(R) Ht: 5 ft 10 in Wt: 155lbs BSA: 1.87 BP: 142/66 mmHg Indications: Smoker, COPD, murmur, HTN, MS, abn EKG. Very limited images due to lung interference and limited mobility secondary to MS. M-Mode Dimensions RVDd 2.19 cm (0.9-2.6) LVDd 3.84 cm (3.5-5.7) LVDs 2.95 cm (3.5-5.7) IVSd 1.21 cm (0.6-1.1) PWd 0.67 cm (0.6-1.1) EF (Teich) 47.10% FS 23.20% EDV (Teich) 63.50 mL ESV (Teich) 33.60 mL Conclusion 1. Limited echocardiogram was performed, it is very technically difficult study because of the patient factors and poor acoustic windows. 2. Probably preserved left ventricular systolic function, estimated ejection fraction 55%, with no obvious wall motion abnormality in the visualized segment. 3. No significant pericardial effusion noted. Electronically signed by : Shelton Alcazar MD 05/14/2021 15:43:14
== END ==
PROVIDERS: PCP Nurse Practitioner Family; Visit Provider Nurse Practitioner Family
DX: G35 Multiple sclerosis (principal); I10 Essential (primary) hypertension; I25.10 Atherosclerotic heart disease of native coronary artery without angina pectoris; I35.1 Nonrheumatic aortic (valve) insufficiency; J44.9 Chronic obstructive pulmonary disease, unspecified; R01.1 Cardiac murmur, unspecified; R94.31 Abnormal electrocardiogram [ECG] [EKG]
CPT/HCPCS: 93306

== ENCOUNTER 2021-07-23 13:54 | Inpatient (IN) | payer MEDICARE, MEDICAID, SELFPAY ==
[2021-07-23] VITALS (8 sets, daily range): BP systolic 91–127; BP diastolic 52–68; PULSE 60–97; RESP 12–20; TEMP 36.4–39; O2SAT 90–99; BMI 20.7; BMI 20.9
--- NOTE | 2021-07-23 14:10 | XR_ITS ---
FINAL REPORT CLINICAL HISTORY: PROD COUGH COMPARISON: September 20, 2019 FINDINGS: SINGLE VIEW CHEST. The heart is normal in size. The mediastinum is unremarkable. there is hyperinflation consistent with COPD. There are new, left greater than right, pulmonary opacities consistent with pneumonia.. There is no pneumothorax. IMPRESSION: New, left greater than right, pneumonia. Reviewed, Interpreted and Dictated by Paul Morrison III, MD Transcribed by Elyse Cr Authenticated by Paul Morrison III, MD on 07/23/2021 03:28:30 PM [facility]
[2021-07-23 14:16] LABS: Influenza A, PCR Not Detected (NotDetected); Influenza B, PCR Not Detected (NotDetected)
[2021-07-23 14:20] LABS: Microscopic, Urine URINE MICROSCOPIC (MICROSCOPIC)
[2021-07-23 14:24] LABS: Basophils # 0.1 K/mm3 (0-0.2); Basophils % 0.3 % (0.1-2.0); Eosinophils % 0.1 % (0.1-12.0); Hematocrit 41.5 % (42.0-52.0); Hemoglobin 13.5 g/dL (14.1-18.0); Lymphocytes # 0.5 K/mm3 (0.7-4.5); Lymphocytes % 3.1 % (10-50); Mean Corpuscular HGB Conc 32.6 g/dL (31.8-35.4); Mean Corpuscular Hemoglobin 30.7 pg (27.0-31.2); Mean Corpuscular Volume 94.2 fl (80-94); Mean Platelet Volume 8.8 fl (7.4-10.4); Monocytes # 0.7 K/mm3 (0.1-1.0); Monocytes % 4.3 % (1.7-9.3); Neutrophils # 15.4 K/mm3 (1.8-7.8); Neutrophils % 92.2 % (37.0-80.0); Platelet Count 629 K/mm3 (142-424); Red Cell Distribution Width 14.5 % (11.5-17.5); White Blood Count 16.8 K/mm3 (4.8-10.8)
[2021-07-23 14:25] LABS: Chloride 93 mmol/L (98-107); Potassium 3.1 mmoL/L (3.5-5.1); Sodium 127 mmol/L (136-145)
--- NOTE | 2021-07-23 14:27 | ECG_ITS ---
APPROVED REPORT Exam: Resting ECG HR:88 bpm ECG Measurements Heart Rate 88 AXES OR 134 P 68 QRSd 98 QRS 76 QT 391 T 67 QTc 437 Conclusion SINUS RHYTHM NORMAL ECG UNCONFIRMED REPORT Electronically signed by : Eduardo Sotelo MD 07/24/2021 07:36:24
[2021-07-23 14:28] LABS: Anion Gap 12.1 mEq/L (5-15); Blood Urea Nitrogen 12 mg/dl (9-20); Carbon Dioxide 25 mmol/L (22.0-30.0); Creatinine Clearance Estimated 75 mL/min (50-200); Estimated Glomerular Filt Rate 98 ml/min (>60); GFR (African American) 119 ML/MIN (>60)
[2021-07-23 14:29] LABS: Calcium 7.8 mg/dl (8.4-10.2); Glucose 119 mg/dl (74-100)
[2021-07-23 14:34] LABS: MANUAL DIFFERENTIAL MANUAL DIFFERENTIAL (MANUAL DIFF)
[2021-07-23 14:40] LABS: Troponin I 0.02 ng/ml (0.00-0.034)
[2021-07-23 14:41] LABS: Lymphocytes % 4 % (10-50); Monocytes % 3 % (2-9); Neutrophils % 93 % (42-76); RBC Morphology Normal; Total Cells Counted 100
[2021-07-23 14:42] LABS: Lactic Acid 4.1 mmol/L (0.7-2.1); Platelet Estimate Moderate Increase
--- NOTE | 2021-07-23 14:42 | PC.NURSE ---
Reymundo from the lab called a lactic of 4.1 MD notified
[2021-07-23 14:49] LABS: Appearance,Urine SL CLOUDY (Clear); Blood, Urine Negative (Negative); Color,Urine YELLOW (Yellow); Glucose,Urine (UA) Negative (Negative); Ketones,Urine 1+ (Negative); Leukocyte Esterase,Urine 1+ (Negative); Nitrate,Urine Negative (Negative); Protein,Urine Negative (Negative); Specific Gravity, Urine 1.015 (1.005-1.030); Urobilinogen,Urine 0.2 EU/dl (0.2)
[2021-07-23 15:03] LABS: Coronavirus 19, PCR Detected (NotDetected)
[2021-07-23 15:07] LABS: Bilirubin,Urine 1+ (Negative)
[2021-07-23 15:08] LABS: Amorphous Sediment,Urine 1+ /lpf; Bacteria,Urine Trace /lpf; RBC,Urine Occasional #/hpf (0-3); WBC,Urine Occasional #/hpf (0-3)
--- NOTE | 2021-07-23 15:12 | HMH.PHACONS ---
- Pharmacy Consult Date: 07/23/21 Time: 15:12 Referring provider: DR. COOL Reason for Consult:: VANCOMYCIN DOSING Allergies and ADEs:: Allergies Allergy/AdvReac Type Severity Reaction Status Date / Time No Known Allergies Allergy Verified 04/27/21 09:00 Home Medications:: Home Medications Medication Instructions Recorded Confirmed Type ocrelizumab 30 mg/mL intravenous 600 mg IV [id number] 04/02/19 04/27/21 History solution Duloxetine HCl 60 mg PO DAILY 05/08/19 04/27/21 History baclofen 10 mg tablet 10 mg PO tab 01/27/21 04/27/21 History aspirin 81 mg tablet,delayed 81 mg PO DAILY #30 tab 04/27/21 04/27/21 Rx release gabapentin 600 mg tablet 600 mg PO TID tab 04/27/21 04/27/21 History metoprolol succinate 25 mg 25 mg PO DAILY #90 tab 04/27/21 04/27/21 Rx tablet,extended release 24 hr Height: 1.83 m Weight: 69.4 kg Laboratory Results:: Laboratory Results - last 24 hr 07/23/21 13:55: WBC 16.8 H, RBC 4.40 L, Hgb 13.5 L, Hct 41.5 L, MCV 94.2 H, MCH 30.7, MCHC 32.6, RDW 14.5, Plt Count 629 H, MPV 8.8, Neut % (Auto) 92.2 H, Lymph % (Auto) 3.1 L, [place] % (Auto) 4.3, Eos % (Auto) 0.1, Baso % (Auto) 0.3, Neut # (Auto) 15.4 H, Lymph # (Auto) 0.5 L, [place] # (Auto) 0.7, Eos # (Auto) 0.0, Baso # (Auto) 0.1, Total Counted 100, Neutrophils % (Manual) 93 H, Lymphocytes % (Manual) 4 L, Monocytes % (Manual) 3, Platelet Estimate Moderate increase, RBC Morphology Normal 07/23/21 13:55: Sodium 127 L, Potassium 3.1 L, Chloride 93 L, Carbon Dioxide 25, Anion Gap 12.1, BUN 12, Creatinine 0.80, Estimated Creat Clear 75, Estimated GFR 98, Est GFR ( Amer) 119, Glucose 119 H, Calcium 7.8 L, Troponin I 0.02 07/23/21 13:55: Lactate 4.1 H 07/23/21 13:55: SARS-CoV-2 (PCR) Detected A, Influenza A Untype (PCR) Not detected, Influenza Type B (PCR) Not detected 07/23/21 13:55: Urine Color Yellow, Urine Appearance Sl cloudy, Urine pH 6.0, Ur Specific [place] 1.015, Urine Protein Negative, Urine Glucose (UA) Negative, Urine Ketones 1+, Urine Blood Negative, Urine Nitrate Negative, Urine Bilirubin 1+ A, Urine Urobilinogen 0.2, Ur Leukocyte Esterase 1+ A, Urine RBC Occasional, Urine WBC Occasional, Ur Squamous Epith Cells None, Amorphous Sediment 1+, Urine Bacteria Trace Medical History: Reports:: Chronic Obstructive Pulmonary Disease (COPD), Coronary Artery Disease, Hypertension Denies:: Cancer, Diabetes Mellitus Type 1, Diabetes Mellitus Type 2, Internal Pacemaker, MRSA, Seizures Assessment and Plan - Assessment and plan all Dx Assessment and Plan for all problems:: Pharmacokinetic dosing service Objective: Patient: Floor: Age: 61 yo Serum creatinine: 0.80 mg/dL Height: 72.0 Inches Weight (kg): 69.4 Assessment: IBW (kg): 77.60 Dosing wt(kg): 69.4 Estimated Creatinine clearance (ml/min): 94.0 CRCL method: Cockcroft and Gault using ibw(default). Drug selected: Vancomycin Loading dose (mg): Vd (liters): 48.6 (factor used: 0.7 L/kg) Jeremy (hr-1): 0.082 Half life (hrs): 8.45 CLvanco=?? 3.985 L/hr Recommended dose: 1000 mg Interval: 12 hrs Infusion time (hrs): 2.0 Predicted peak (mcg/mL): 30.3 Predicted trough (mcg/mL): 13.35 Total body weight is being used for vancomycin dosing. Recommendations: Give Vancomycin 1000 mg q 12 hrs with an expected Cpeak of 30.3 mcg/ml and an expected Ctrough of 13.35 mcg/ml AUC 0-24 /ELLEN Data: ELLEN 0.5 mcg/mL:?? AUC/ELLEN:? 1003.8 ELLEN 1.0 mcg/mL:?? AUC/ELLEN:? 501.9 --------- ELLEN 1.5 mcg/mL:?? AUC/ELLEN:? 334.6 ELLEN 2.0 mcg/mL:?? AUC/ELLEN:? 250.9 Thank you for the consult, will continue to follow. -CYDNEY TIPTON, SEAND
--- NOTE | 2021-07-23 15:19 | HMH.EDGENADL ---
ED Disposition Clinical Impression: COVID-19, Acute respiratory failure with hypoxia Disposition: Admitted As Inpatient Condition on Discharge: Undetermined Referrals: Luis E Roque MD [Primary Care Provider] - - Critical Care Critical Care Time: No Attestation: On 07/23/21, the high probability of a clinically significant, sudden or life threatening deterioration of the following system(s) required my full and direct attention, intervention and personal management. The time I documented below is in addition to time spent performing reported procedures but includes the following listed in this critical care notation. Medical Decision Making - Medical Records Medical records reviewed: Yes: I reviewed the patient's medical records. - Sen Inquiry Pt receiving controlled substance: No Vital Signs: 07/23/21 13:53 Temperature 102.2 F H Temperature Source Rectal Pulse Rate [Right Radial] 95 H Respiratory Rate 20 Blood Pressure [Right Arm] 127/67 Blood Pressure Mean [Right Arm] 87 Blood Pressure Source [Right Arm] Automatic Cuff Blood Pressure Position [Right Arm] Sitting 02 Sat by Pulse Oximetry 90 L Oxygen Delivery Method Room Air - Lab Data Lab results reviewed: Yes: I reviewed the patient's lab results. Lab Results 07/23/21 13:55: WBC 16.8 H, RBC 4.40 L, Hgb 13.5 L, Hct 41.5 L, MCV 94.2 H, MCH 30.7, MCHC 32.6, RDW 14.5, Plt Count 629 H, MPV 8.8, Neut % (Auto) 92.2 H, Lymph % (Auto) 3.1 L, [place] % (Auto) 4.3, Eos % (Auto) 0.1, Baso % (Auto) 0.3, Neut # (Auto) 15.4 H, Lymph # (Auto) 0.5 L, [place] # (Auto) 0.7, Eos # (Auto) 0.0, Baso # (Auto) 0.1, Total Counted 100, Neutrophils % (Manual) 93 H, Lymphocytes % (Manual) 4 L, Monocytes % (Manual) 3, Platelet Estimate Moderate increase, RBC Morphology Normal 07/23/21 13:55: Sodium 127 L, Potassium 3.1 L, Chloride 93 L, Carbon Dioxide 25, Anion Gap 12.1, BUN 12, Creatinine 0.80, Estimated Creat Clear 75, Estimated GFR 98, Est GFR ( Amer) 119, Glucose 119 H, Calcium 7.8 L, Troponin I 0.02 07/23/21 13:55: Lactate 4.1 H 07/23/21 13:55: SARS-CoV-2 (PCR) Detected A, Influenza A Untype (PCR) Not detected, Influenza Type B (PCR) Not detected 07/23/21 13:55: Urine Color Yellow, Urine Appearance Sl cloudy, Urine pH 6.0, Ur Specific [place] 1.015, Urine Protein Negative, Urine Glucose (UA) Negative, Urine Ketones 1+, Urine Blood Negative, Urine Nitrate Negative, Urine Bilirubin 1+ A, Urine Urobilinogen 0.2, Ur Leukocyte Esterase 1+ A, Urine RBC Occasional, Urine WBC Occasional, Ur Squamous Epith Cells None, Amorphous Sediment 1+, Urine Bacteria Trace Result diagrams: 07/23/21 13:55 07/23/21 13:55 Orders (Tests/Meds): ED MEDICATIONS Generic Name Dose Route Start Last Admin Trade Name Freq PRN Reason Stop Dose Admin Piperacillin Sod/Tazobactam 100 mls @ 200 mls/hr 07/23/21 15:00 07/23/21 15:14 Sod 4.5 gm/ Sodium Chloride IV 08/06/21 14:59 200 mls/hr Q6H CAROLA Administration Vancomycin HCl 1,000 mg/ 250 mls @ 125 mls/hr 07/23/21 16:00 Sodium Chloride IV 08/06/21 15:59 Q12H CAROLA Sodium Chloride 10 ml 07/23/21 14:11 Sodium Chloride 0.9% 10ml Flush Syringe IV 08/22/21 14:10 NEEDED PRN Maintain IV Site Discontinued Medications Generic Name Dose Route Start Last Admin Trade Name Freq PRN Reason Stop Dose Admin Acetaminophen 1,000 mg 07/23/21 14:11 07/23/21 14:14 Acetaminophen 500mg Tab PO 07/23/21 14:12 1,000 mg ONCE ONE Administration Sodium Chloride 1,000 mls @ 999 mls/hr 07/23/21 14:15 07/23/21 14:14 Sod Chlor 0.9% 1000ml Bag IV 07/23/21 15:15 999 mls/hr .Q1H1M CAROLA Administration Ibuprofen 800 mg 07/23/21 14:11 07/23/21 14:15 Ibuprofen 400 Mg Tablet PO 07/23/21 14:12 800 mg ONCE ONE Administration Vancomycin HCl 1,400 mg 07/24/21 09:00 Vancomycin 1000mg Vial IV 08/07/21 08:59 DAILY CAROLA ORDERS Category Date Time Status XR chest portable Stat Exams 07/23/21 14:1
--- NOTE | 2021-07-23 16:10 | PC.NURSE ---
UPDATED FAMILY ON ADMISSION AND COVID STATUS ADVISED THEM HE COULD NOT HAVE VISITORS , THEY ARE GONNA CALL BACK AND CHECK ON PT LATER , THEY UPDATED PHONE NUMBERS WITH REGISTRATION
--- NOTE | 2021-07-23 16:29 | PC.NURSE ---
Dr. Son s/w Dr. Roque, agrees to admit, House notified for bed assignment.
--- NOTE | 2021-07-23 16:32 | PC.NURSE ---
Bed Assignment of 213 given by Agriculture Scientist
--- NOTE | 2021-07-23 16:59 | PC.NURSE ---
PT ARRIVED TO FLOOR VIA STRETCHER FROM ED W/STAFF @ [id number]
[2021-07-23 18:05] LABS: Troponin I 0.02 ng/ml (0.00-0.034)
[2021-07-23 18:16] LABS: Reflex Lactic Add Lactic Reflex
[2021-07-23 18:47] LABS: Lactic Acid Follow Up (RFLX 1) 0.9 mmol/L (0.7-2.1)
[2021-07-23 21:09] LABS: Troponin I 0.02 ng/ml (0.00-0.034)
[2021-07-24] VITALS (14 sets, daily range): BP systolic 98–143; BP diastolic 51–70; PULSE 50–106; RESP 18; TEMP 36.5–39.8; O2SAT 90–94; BMI 20.7
[2021-07-24] LABS: VBG Base Excess -3.4 mmol/L (-2.4-2.3); VBG HCO3 22.9 mmol/L (23-30); VBG Oxygen Saturation 54.6 % (50-70); VBG PCO2 47.1 mmol/L (35-51); VBG PH 7.31 mmol/L (7.31-7.41); VBG PO2 31.1 mmol/L (28-40); VBG Total CO2 24.4 mmol/L (23-27)
--- NOTE | 2021-07-24 00:24 | PC.WOUNDNOTE ---
SKIN ABRASIONS FROM PREVIOUS FALL
--- NOTE | 2021-07-24 00:26 | PC.WOUNDNOTE ---
DISTORTED LEFT GREAT TOE NAIL FROM PREVIOUS FALL
--- NOTE | 2021-07-24 00:27 | PC.WOUNDNOTE ---
SKIN ABRASIONS FROM PREVIOUS FALL ON RIGHT LOWER LIMB
--- NOTE | 2021-07-24 00:28 | PC.WOUNDNOTE ---
SKIN ABRASION FROM PREVIOUS FALL, LEFT UPPER EXTREMITY
--- NOTE | 2021-07-24 00:29 | PC.WOUNDNOTE ---
LEFT KNEE SKIN ABRASION NOTED FROM PRVIOUS FALL
--- NOTE | 2021-07-24 00:31 | PC.WOUNDNOTE ---
MINOR SKIN ABRASION NOTED ON RIGHT KNEE FROM PREVIOUS FALL.
--- NOTE | 2021-07-24 00:31 | PC.WOUNDNOTE ---
EXCORIATED SKIN NOTED ON COCCYX AND SCROTUM.
[2021-07-24 05:58] LABS: Basophils % 0.2 % (0.1-2.0); Eosinophils # 0.1 K/mm3 (0.0-0.4); Eosinophils % 0.5 % (0.1-12.0); Hematocrit 37.9 % (42.0-52.0); Lymphocytes # 0.6 K/mm3 (0.7-4.5); Lymphocytes % 3.6 % (10-50); Mean Corpuscular Hemoglobin 30.5 pg (27.0-31.2); Mean Corpuscular Volume 95.4 fl (80-94); Mean Platelet Volume 8.6 fl (7.4-10.4); Monocytes # 0.6 K/mm3 (0.1-1.0); Monocytes % 3.5 % (1.7-9.3); Neutrophils # 14.7 K/mm3 (1.8-7.8); Neutrophils % 92.1 % (37.0-80.0); Platelet Count 552 K/mm3 (142-424); Red Blood Count 3.98 M/mm3 (4.60-6.20); Red Cell Distribution Width 14.4 % (11.5-17.5); White Blood Count 15.9 K/mm3 (4.8-10.8)
[2021-07-24 06:01] LABS: MANUAL DIFFERENTIAL MANUAL DIFFERENTIAL (MANUAL DIFF)
[2021-07-24 06:03] LABS: Chloride 101 mmol/L (98-107); Hemoglobin 12.1 g/dL (14.1-18.0); Potassium 3.2 mmoL/L (3.5-5.1); Sodium 131 mmol/L (136-145)
[2021-07-24 06:06] LABS: Anion Gap 7.2 mEq/L (5-15); Blood Urea Nitrogen 9 mg/dl (9-20); Calcium 7.1 mg/dl (8.4-10.2); Carbon Dioxide 26 mmol/L (22.0-30.0); Creatinine Clearance Estimated 71 mL/min (50-200); Estimated Glomerular Filt Rate 114 ml/min (>60); GFR (African American) 138 ML/MIN (>60); Glucose 94 mg/dl (74-100)
[2021-07-24 06:31] LABS: Eosinophils % 2 % (0-3); Lymphocytes % 11 % (10-50); Neutrophils % 82 % (42-76); Platelet Estimate Slight Increase; RBC Morphology Normal; Total Cells Counted 100
[2021-07-24 09:14] LABS: Alanine Aminotransferase 25 U/L (12-78); Aspartate Amino Transferase 51 U/L (17-59); Bilirubin,Unconjugated 0.1 mg/dL (0.0-1.1)
[2021-07-24 09:15] LABS: Albumin Level 2.6 g/dl (3.5-5.0); Alkaline Phosphatase 91 U/L (38-126); Bilirubin,Direct 0.4 mg/dl (0.0-0.4); Bilirubin,Indirect 0.1 mg/dL (0.0-0.9); Bilirubin,Total 0.5 mg/dl (0.2-1.3); Total Protein,Serum 4.9 g/dl (6.3-8.2)
--- NOTE | 2021-07-24 09:47 | HMH.HP ---
*Admission Date: 07/23/21 *Chief complaint: cough *History of present illness: this patient with prev cva presented to the ed- c/o frequent falls and weakness. Also c/o fever, productive cough x several weeks. C/O decrease in PO intake x3 days. Carmine is a 61-year-old male with a history of MS and prior stroke with subsequent right-sided weakness and dysarthria is presenting for chief complaint of frequent falls. Patient reports some difficulty breathing and cough and states that he does not use oxygen at home. He is requiring 2 L of supplemental O2 for appropriate SPO2 saturations here. He states that he has been having worsening cough. Additionally, he has had progressive generalized weakness for the past several weeks and has been falling frequently. Sister at bedside states he does not seem baseline to her. Patient denies fever at home but is febrile here with a T-max of 102.2. He denies current chest pain, hemoptysis, abdominal pain, nausea, vomiting, diarrhea, dysuria, blood in stool, hematuria. When he fell today, patient denies hitting his head or losing consciousness. No gross deformities to any extremity though he has a superficial cut on his left foot. pt with abn cxr and positive covid-19 and was admitted to hospital for meds and o2 and ivf H History I have reviewed the patient's past medical history: Yes Medical History: Reports:: Chronic Obstructive Pulmonary Disease (COPD), Coronary Artery Disease, Hypertension Denies:: Cancer, Diabetes Mellitus Type 1, Diabetes Mellitus Type 2, Internal Pacemaker, MRSA, Seizures *Have you ever received a pneumonia vaccine?: No *Have you received a flu vaccine this season?: Yes Other Medical History: Reports: Other Laterality Cases: Right: Carpal Tunnel Release Other Surgeries: Yes: No Previous Surgery, Colonoscopy. No: Pacemaker Amputation: No Fractures: No - *Social History Last grade of school completed: High school graduate Smoking Status: Current every day smoker Tobacco Type: cigarettes # Packs/Day (cigarettes): 30 Alcohol Intake: current Alcohol Intake Frequency:: other Substance Use Type: marijuana *Occupational Status:: disabled Housing: house Household Members: caregiver *Travel in the last 8 weeks: None Family Hx:: Heart Attack, Hyperlipidemia, Hypertension Review of Systems - Review of Systems Review of systems:: pertinent systems reviewed and negative unless documented below - Constitutional Reports fever(s), Reports weakness - Eyes Denies change in vision - ENT Denies sore throat - *Cardiovascular Denies chest pain - *Respiratory Reports cough, Reports shortness of breath, Denies coughing up blood - *Gastrointestinal Denies abdominal pain - *Genitourinary Denies blood in urine - *Musculoskeletal Denies joint pain - Integumentary/Breasts Denies rash - *Neurologic Reports unsteadiness, Reports dizziness, Reports localized weakness (Patient states worsening generalized weakness; R sided weakness baseline), Reports frequent falls, Reports other (Denies LOC), Denies fainting - Psychiatric Reports confusion Meds Home Medications Medication Instructions Recorded Confirmed Type ocrelizumab 30 mg/mL intravenous 600 mg IV [id number] 04/02/19 07/23/21 History solution Duloxetine HCl 60 mg PO DAILY 05/08/19 04/27/21 History baclofen 10 mg tablet 10 mg PO TIDP PRN tab 01/27/21 07/24/21 History gabapentin 600 mg tablet 600 mg PO TID tab 04/27/21 04/27/21 History Aspirin [Low Dose Aspirin EC] 81 mg PO DAILY 07/23/21 07/23/21 History Oxybutynin Chloride [Oxybutynin 10 mg PO DAILY 07/23/21 07/23/21 History Chloride ER] Metoprolol Succinate [Metoprolol 25 mg PO DAILY 07/24/21 07/24/21 History Succinate 25mg Tablet*] Allergies Allergy/AdvReac Type Severity Reaction Status Date / Time No Known Allergies Allergy Verified 04/27/21 09:00 Exam Vital signs and Labs for Last 24 Hours: Temp Pulse Resp BP Pulse Ox 98.
--- NOTE | 2021-07-24 09:57 | P.CONPHA_ITS ---
[facility] Pharmacy VTE Monitoring - Patient Demographics Admission date: 07/24/21 Report Date: 07/24/21 Time: 09:57 Allergies/Adverse Reactions: Patient Allergies No Known Allergies Allergy (Verified 04/27/21 09:00) Height: 1.78 m Weight: 65.771 kg Patient Problems: Current Active Problems COVID-19 (Acute) Acute respiratory failure with hypoxia (Acute) - VTE Risk Labs: VTE Related Lab Results Hgb 12.1 g/dL (14.1-18.0) L D 07/24/21 05:27 Hct 37.9 % (42.0-52.0) L 07/24/21 05:27 Plt Count 552 K/mm3 (142-424) H 07/24/21 05:27 BUN 9 mg/dl (9-20) 07/24/21 05:27 Creatinine 0.70 mg/dl (0.66-1.25) 07/24/21 05:27 Estimated Creat Clear 71 mL/min (50-200) 07/24/21 05:27 Was VTE Risk Assessment Performed: Yes VTE Score: 4 VTE Risk Level: Low Risk - Prophylaxis Types of VTE Prophylaxis: Pharmacological Pharmacologic Type: Enoxaparin (LOVENOX AND TEDS ORDERED)
--- NOTE | 2021-07-24 10:00 | CT_ITS ---
PROCEDURE INFORMATION: Exam: CTA Chest With Contrast Exam date and time: 07/24/2021 10:00 AM Age: 61 years old Clinical indication: Shortness of breath and other: Covid; Additional info: Sob/covid-19 TECHNIQUE: Imaging protocol: Computed tomographic angiography of the chest with contrast. 3D rendering (Not supervised by radiologist): MIP and/or 3D reconstructed images were created by the technologist. Radiation optimization: All CT scans at this facility use at least one of these dose optimization techniques: automated exposure control; mA and/or kV adjustment per patient size (includes targeted exams where dose is matched to clinical indication); or iterative reconstruction. Contrast material: ISOVUE; Contrast volume: 70 ml; Contrast route: INTRAVENOUS (IV); COMPARISON: CHESTWW CT chest wo/w con 06/29/2017 9:39 AM FINDINGS: Pulmonary arteries: No pulmonary emboli. Aorta: No aortic aneurysm. No aortic dissection. Lungs: Bilateral interstitial thickening and ground-glass opacity. Minimal partial consolidation in the lung bases, left more than right. Pleural spaces: Very small bilateral pleural effusions. Heart: No cardiomegaly. Small a a pericardial effusion. Lymph nodes: No significant adenopathy. Bones/joints: No acute findings. Soft tissues: Unremarkable. IMPRESSION: Bilateral pneumonia consistent with COVID-19 pneumonia. Very small bilateral pleural effusions.
--- NOTE | 2021-07-24 10:54 | PC.NURSE ---
Patient's oral temperature was charted by SRNA this morning as 98.3. Upon assessment, the RN noted the patient was flushed, diaphoretic and warm to touch. RN checked second oral temp which resulted in 101.8 . Rectal temp was then assessed, resulting in a temp of 103.3. MD Richy (on-call) was immediately notified, sheets and covers removed, tylenol administered, tepid bath given and ice packs placed. Communication order from RN to SRNA to check rectal temp q1h until rectal temp is equal or less than 100.5. Cultures x2 ordered by provider.
--- NOTE | 2021-07-24 11:30 | PC.NURSE ---
Dr. Mann notified of consult on pt.
[2021-07-24 18:50] LABS: Adenovirus F 40/41, stool Not Detected (NotDetected); Astrovirus Not Detected (NotDetected); Campylobacter Not Detected (NotDetected); Clostridium Difficile A/B, PCR Not Detected (NotDetected); Cryptosporidium Not Detected (NotDetected); Cyclospora Cayetanesis Not Detected (NotDetected); Entamoeba histolytica Not Detected (NotDetected); Enteroaggregative E coli Not Detected (NotDetected); Enteropathogenic E coli Not Detected (NotDetected); Enterotoxigenic E coli Not Detected (NotDetected); Giardia lamblia Not Detected (NotDetected); Norovirus Not Detected (NotDetected); Plesimonas Shigalloides, PCR Not Detected (NotDetected); Rotavirus A Not Detected (NotDetected); Salmonella, PCR Not Detected (NotDetected); Sapovirus Not Detected (NotDetected); Shiga-like toxin E coli Not Detected (NotDetected); Shigella Enterovasive E coli Not Detected (NotDetected); Vibrio Cholerae Not Detected (NotDetected); Vibrio, PCR Not Detected (NotDetected); Yersinia Entercolitica, PCR Not Detected (NotDetected)
[2021-07-25] VITALS (11 sets, daily range): BP systolic 94–156; BP diastolic 47–81; PULSE 60–95; RESP 16–20; TEMP 36.8–39.6; O2SAT 87–90; BMI 20.7
[2021-07-25 06:29] LABS: Basophils % 0.2 % (0.1-2.0); Eosinophils % 0.3 % (0.1-12.0); Hematocrit 34.7 % (42.0-52.0); Hemoglobin 11.2 g/dL (14.1-18.0); Lymphocytes # 0.5 K/mm3 (0.7-4.5); Lymphocytes % 6.4 % (10-50); Mean Corpuscular HGB Conc 32.2 g/dL (31.8-35.4); Mean Corpuscular Hemoglobin 30.4 pg (27.0-31.2); Mean Corpuscular Volume 94.2 fl (80-94); Mean Platelet Volume 8.9 fl (7.4-10.4); Monocytes # 0.4 K/mm3 (0.1-1.0); Monocytes % 4.5 % (1.7-9.3); Neutrophils # 7.2 K/mm3 (1.8-7.8); Neutrophils % 88.6 % (37.0-80.0); Platelet Count 566 K/mm3 (142-424); Red Blood Count 3.68 M/mm3 (4.60-6.20); Red Cell Distribution Width 14.5 % (11.5-17.5); White Blood Count 8.2 K/mm3 (4.8-10.8)
[2021-07-25 06:33] LABS: Chloride 100 mmol/L (98-107); Sodium 126 mmol/L (136-145)
[2021-07-25 06:35] LABS: Blood Urea Nitrogen 4 mg/dl (9-20); Creatinine Clearance Estimated 71 mL/min (50-200); Estimated Glomerular Filt Rate 137 ml/min (>60); GFR (African American) 165 ML/MIN (>60)
[2021-07-25 06:36] LABS: Alanine Aminotransferase 22 U/L (12-78); Albumin Level 2.5 g/dl (3.5-5.0); Alkaline Phosphatase 120 U/L (38-126); Anion Gap 5.5 mEq/L (5-15); Aspartate Amino Transferase 49 U/L (17-59); Bilirubin,Total 0.3 mg/dl (0.2-1.3); Calcium 6.5 mg/dl (8.4-10.2); Carbon Dioxide 23 mmol/L (22.0-30.0); Globulin 2.6 g/dL (1.3-3.2); Glucose 93 mg/dl (74-100); Total Protein,Serum 5.1 g/dl (6.3-8.2)
[2021-07-25 06:38] LABS: MANUAL DIFFERENTIAL MANUAL DIFFERENTIAL (MANUAL DIFF)
[2021-07-25 06:40] LABS: Potassium 2.5 mmoL/L (3.5-5.1)
--- NOTE | 2021-07-25 06:44 | PC.NURSE ---
Andres from lab called at 0641 with a critical on the patient Potassium is 2.5 Name, , and value verified x2 MD sales representative consultant notified.
[2021-07-25 06:50] LABS: Lymphocytes % 5 % (10-50); Monocytes % 4 % (2-9); Neutrophils % 83 % (42-76); Platelet Estimate Moderate Increase; RBC Morphology Normal; Total Cells Counted 100
--- NOTE | 2021-07-25 07:32 | PC.NURSE ---
Critical K+ of 2.5 called to MD DORIAN. Dorian stated to wait till Jude is in and leave a sticky note for him at senior front end developer to be addressed this morning
--- NOTE | 2021-07-25 13:56 | HMH.ACPN2 ---
Internal Medicine - PN: Subj *Date: 07/25/21 *Time: 13:56 Interval history: No significant deterioration clinical status is noted. Patient has had a fever 103.2 T-max. Dust imaging demonstrates bilateral infiltrative process. Nursing staff has advised me that patient has a history of daily drinking and has been placed on seizure precautions. Seizure activity has been noted. Patient has a history of CVA. Patient is maintaining decent saturations on both nasal cannula and room air Exam Vital signs and Labs for Last 24 Hours: Temp Pulse Resp BP Pulse Ox 98.8 F 88 16 134/70 90 L 07/25/21 11:27 07/25/21 11:27 07/25/21 11:27 07/25/21 11:27 07/25/21 11:27 Laboratory Results - last 24 hr 07/24/21 18:30: Stl Aeromonas (PCR) Not detected, Stl C. cayetanensis PCR Not detected, Stool Rotavirus (PCR) Not detected, Stl Adenov F 40/41 PCR Not detected, Stool Astrovirus (PCR) Not detected, Stool Campylobacter PCR Not detected, Stl C.difficile Tox PCR Not detected, Stool Cryptosporidium PCR Not detected, Stl E.coli Shiga Tox PCR Not detected, Stool E coli O157 PCR Not detected, Stl Enterotoxigenic E PCR Not detected, Stool EPEC (PCR) Not detected, Stool EAEC (PCR) Not detected, Stl E. histolytica PCR Not detected, Stool Giardia Lamblia PCR Not detected, Stool Salmonella PCR Not detected, Stool Sapovirus (PCR) Not detected, Stl P. shigelloides PCR Not detected, Stl Shigella/EIEC PCR Not detected, St Y.enterocolitica PCR Not detected, Stool Vibrio (PCR) Not detected, Stl Vibrio cholerae PCR Not detected, Stl Norovirus GI/GII PCR Not detected 07/25/21 05:51: Sodium 126 L, Potassium 2.5 L* D, Chloride 100, Carbon Dioxide 23, Anion Gap 5.5, BUN 4 L D, Creatinine 0.60 L, Estimated Creat Clear 71, Estimated GFR 137, Est GFR ( Amer) 165, Glucose 93, Calcium 6.5 L, Total Bilirubin 0.3, AST 49, ALT 22, Alkaline Phosphatase 120, Total Protein 5.1 L, Albumin 2.5 L, Globulin 2.6, Albumin/Globulin Ratio 1.0 L 07/25/21 05:51: WBC 8.2 D, RBC 3.68 L, Hgb 11.2 L, Hct 34.7 L, MCV 94.2 H, MCH 30.4, MCHC 32.2, RDW 14.5, Plt Count 566 H, MPV 8.9, Neut % (Auto) 88.6 H, Lymph % (Auto) 6.4 L, [place] % (Auto) 4.5, Eos % (Auto) 0.3, Baso % (Auto) 0.2, Neut # (Auto) 7.2, Lymph # (Auto) 0.5 L, [place] # (Auto) 0.4, Eos # (Auto) 0.0, Baso # (Auto) 0.0, Total Counted 100, Neutrophils % (Manual) 83 H, Band Neutrophils % 8.0, Lymphocytes % (Manual) 5 L, Monocytes % (Manual) 4, Platelet Estimate Moderate increase, RBC Morphology Normal I & O for Last 24 hours: Intake & Output 07/22/21 07/23/21 07/24/21 07/25/21 23:59 23:59 23:59 23:59 Intake Total 360 / 360 630 / 630 240 / 240 Output Total 1000 / 2100 2275 / 3275 1000 / 1000 Balance -640 / -1740 -1645 / -2645 -760 / -760 Weight 146 lb 145 lb 144 lb 9.6 oz Microbiology Reports for the Last 24 Hours: Microbiology 07/23/21 13:55 Urine,Catheterized Urine Culture - Final NO GROWTH AFTER 24 HOURS - Constitutional thin, chronically ill appearing - *Routine HEENT Exam Head: Present: normocephalic Eye: Present: EOMI, PERRL ENT: Present: mucous membranes moist - *Routine Neck Exam Present: supple. Absent: lymphadenopathy - *Routine Respiratory Exam Present: rhonchi, crackles. Absent: accessory muscle use, respiratory distress - *Routine Cardiovascular Exam Present: RRR - *Routine Abdominal Exam Present: soft, normoactive bowel sounds. Absent: tenderness - *Routine Extremities Exam Absent: cyanosis, clubbing, edema - *Routine Skin Exam Present: warm. Absent: jaundice, rash - *Routine Neurological Exam Present: alert, oriented X3, vision grossly intact, hearing grossly intact. Absent: clonus, normal speech Assessment and Plan (1) Pneumonia due to COVID-19 virus Status: Acute Category: Medical Code(s): U07.1 - COVID-19; J12.82 - Pneumonia due to coronavirus disease 2018 (2) Acute respiratory failure with hypoxia Status: Acute Category:
[2021-07-25 15:22] LABS: Basophils % 0.4 % (0.1-2.0); Eosinophils % 0.2 % (0.1-12.0); Hematocrit 36.6 % (42.0-52.0); Hemoglobin 11.9 g/dL (14.1-18.0); Lymphocytes # 0.6 K/mm3 (0.7-4.5); Lymphocytes % 6.6 % (10-50); Mean Corpuscular HGB Conc 32.6 g/dL (31.8-35.4); Mean Corpuscular Hemoglobin 30.5 pg (27.0-31.2); Mean Corpuscular Volume 93.5 fl (80-94); Mean Platelet Volume 8.9 fl (7.4-10.4); Monocytes # 0.3 K/mm3 (0.1-1.0); Monocytes % 3.5 % (1.7-9.3); Neutrophils # 8.2 K/mm3 (1.8-7.8); Neutrophils % 89.1 % (37.0-80.0); Platelet Count 616 K/mm3 (142-424); Red Blood Count 3.92 M/mm3 (4.60-6.20); Red Cell Distribution Width 14.6 % (11.5-17.5); White Blood Count 9.1 K/mm3 (4.8-10.8)
[2021-07-25 15:24] LABS: Chloride 99 mmol/L (98-107); Sodium 127 mmol/L (136-145)
[2021-07-25 15:26] LABS: Alanine Aminotransferase 26 U/L (12-78); Alkaline Phosphatase 127 U/L (38-126); Aspartate Amino Transferase 54 U/L (17-59); Bilirubin,Total 0.3 mg/dl (0.2-1.3); Blood Urea Nitrogen 5 mg/dl (9-20); Creatinine Clearance Estimated 71 mL/min (50-200); Estimated Glomerular Filt Rate 114 ml/min (>60); GFR (African American) 138 ML/MIN (>60); MANUAL DIFFERENTIAL MANUAL DIFFERENTIAL (MANUAL DIFF)
[2021-07-25 15:27] LABS: Albumin Level 2.7 g/dl (3.5-5.0); Anion Gap 5.7 mEq/L (5-15); Calcium 6.8 mg/dl (8.4-10.2); Carbon Dioxide 25 mmol/L (22.0-30.0); Globulin 2.8 g/dL (1.3-3.2); Glucose 103 mg/dl (74-100); Magnesium 1.8 mg/dl (1.6-2.3); Total Protein,Serum 5.5 g/dl (6.3-8.2)
[2021-07-25 15:28] LABS: Activated Partial Thrombo Time 43.8 seconds (22.8-30.6)
[2021-07-25 15:33] LABS: Phosphorous 1.9 mg/dl (2.5-4.5); Potassium 2.7 mmoL/L (3.5-5.1)
--- NOTE | 2021-07-25 15:35 | PC.NURSE ---
reported critical labs to DORIAN. K+ 2.7, Phosphorus 1.9
[2021-07-25 16:22] LABS: Magnesium 1.8 mg/dl (1.6-2.3)
[2021-07-25 17:23] LABS: Folate 9.61 ng/mL
[2021-07-25 18:10] LABS: Lymphocytes % 2 % (10-50); Monocytes % 1 % (2-9); Neutrophils % 91 % (42-76); Platelet Estimate Normal; RBC Morphology Normal; Total Cells Counted 100
[2021-07-25 20:03] LABS: Vitamin B12 890 pg/mL (239-931)
[2021-07-26] VITALS (7 sets, daily range): BP systolic 103–141; BP diastolic 54–70; PULSE 67–97; RESP 18–26; TEMP 36.7–38.6; O2SAT 90–96; BMI 21.3
--- NOTE | 2021-07-26 06:00 | XR_ITS ---
PROCEDURE INFORMATION: Exam: XR Chest Exam date and time: 07/26/2021 6:00 AM Age: 61 years old Clinical indication: Cough and shortness of breath and other: Covid pneumonia TECHNIQUE: Imaging protocol: XR of the chest. Views: 1 view. COMPARISON: CR XR CHEST PORTABLE 07/23/2021 2:14 PM FINDINGS: Lungs: [id number] interstitial/alveolar opacities bilaterally; question pneumonia. Pleural spaces: Unremarkable. No pleural effusion. No pneumothorax. Heart/Mediastinum: Unremarkable. No cardiomegaly. Bones/joints: Scoliosis and degenerative changes of the spine. IMPRESSION: Overall, similar appearance to previous. [id number] interstitial/alveolar opacities bilaterally; question pneumonia.
[2021-07-26 07:28] LABS: Chloride 101 mmol/L (98-107); Potassium 3.1 mmoL/L (3.5-5.1); Sodium 131 mmol/L (136-145)
[2021-07-26 07:30] LABS: Blood Urea Nitrogen 5 mg/dl (9-20)
[2021-07-26 07:31] LABS: Alanine Aminotransferase 30 U/L (12-78); Albumin Level 2.7 g/dl (3.5-5.0); Alkaline Phosphatase 126 U/L (38-126); Anion Gap 6.1 mEq/L (5-15); Aspartate Amino Transferase 77 U/L (17-59); Bilirubin,Total 0.4 mg/dl (0.2-1.3); Carbon Dioxide 27 mmol/L (22.0-30.0); Creatinine Clearance Estimated 73 mL/min (50-200); Estimated Glomerular Filt Rate 114 ml/min (>60); GFR (African American) 138 ML/MIN (>60); Globulin 2.7 g/dL (1.3-3.2); Glucose 99 mg/dl (74-100); Total Protein,Serum 5.4 g/dl (6.3-8.2)
[2021-07-26 07:32] LABS: Basophils % 0.4 % (0.1-2.0); Eosinophils % 0.2 % (0.1-12.0); Hemoglobin 12.5 g/dL (14.1-18.0); Lymphocytes # 0.7 K/mm3 (0.7-4.5); Lymphocytes % 7.1 % (10-50); Mean Corpuscular HGB Conc 32.8 g/dL (31.8-35.4); Mean Corpuscular Hemoglobin 30.7 pg (27.0-31.2); Mean Corpuscular Volume 93.6 fl (80-94); Mean Platelet Volume 8.7 fl (7.4-10.4); Monocytes # 0.4 K/mm3 (0.1-1.0); Monocytes % 4.3 % (1.7-9.3); Neutrophils % 88.1 % (37.0-80.0); Platelet Count 635 K/mm3 (142-424); Red Blood Count 4.06 M/mm3 (4.60-6.20); Red Cell Distribution Width 14.5 % (11.5-17.5); White Blood Count 10.3 K/mm3 (4.8-10.8)
[2021-07-26 07:37] LABS: MANUAL DIFFERENTIAL MANUAL DIFFERENTIAL (MANUAL DIFF)
--- NOTE | 2021-07-26 08:00 | CA_ITS ---
APPROVED REPORT EXAM: Comprehensive 2D, Doppler, and color-flow Echocardiogram Stuntman: Mar Ayers RT(R) Ht: 5 ft 10 in Wt: 140lbs BSA: 1.79 BP: 139/70 mmHg Indications: COVID,MS, Smoker, Murmur, COPD,HTN M-Mode Dimensions RVDd 2.38 cm (0.9-2.6) LVDd 4.65 cm (3.5-5.7) LVDs 3.44 cm (3.5-5.7) IVSd 0.91 cm (0.6-1.1) PWd 0.98 cm (0.6-1.1) EF (Teich) 51.10% FS 26.00% EDV (Teich) 99.80 mL ESV (Teich) 48.80 mL Left Ventricle Limited echocardiogram was performed. Mildly enlarged left atrium, normal left ventricular size, mild concentric left ventricular hypertrophy, visually estimated ejection fraction 55% with no regional wall motion abnormality, there is no Doppler performed. Right Ventricle Right atrium and right ventricle are mildly enlarged with normal contractility. Aortic Valve Aortic valve is minimally thickened and fibrosed, morphologically there is no aortic stenosis. Mitral Valve Mitral valve grossly normal. Tricuspid Valve Tricuspid grossly normal. Pulmonic Valve Pulmonic valve is poorly visualized. Great Vessels Aortic root is normal size. Inferior vena cava is poorly visualized. Pericardium Small pericardial effusion noted. Conclusion 1. Limited 2D echocardiogram performed 2. Mild biatrial enlargement, normal left ventricular size preserved left ventricular systolic function, visually estimated ejection fraction 55% with no regional wall motion abnormality. Endocardial cells are poorly visualized. 3. Small pericardial effusion. 4. Inferior vena cava is poorly visualized. Electronically signed by : Shelton Alcazar MD 07/26/2021 11:35:40
--- NOTE | 2021-07-26 09:20 | HMH.ACPN2 ---
Internal Medicine - PN: Subj *Date: 07/26/21 *Time: 09:20 Interval history: pt laying in bed, discussed with pt that his family would like him to go somewhere for rehab, he first said he would go then states his family wants him to go to a senior care and he does not want to go there . He states she just wants my fucking money Exam Vital signs and Labs for Last 24 Hours: Temp Pulse Resp BP Pulse Ox 99.8 F H 92 H 26 H 135/66 90 L 07/26/21 08:00 07/26/21 08:00 07/26/21 08:00 07/26/21 08:00 07/26/21 08:00 Laboratory Results - last 24 hr 07/25/21 14:48: WBC 9.1, RBC 3.92 L, Hgb 11.9 L, Hct 36.6 L, MCV 93.5, MCH 30.5, MCHC 32.6, RDW 14.6, Plt Count 616 H, MPV 8.9, Neut % (Auto) 89.1 H, Lymph % (Auto) 6.6 L, [place] % (Auto) 3.5, Eos % (Auto) 0.2, Baso % (Auto) 0.4, Neut # (Auto) 8.2 H, Lymph # (Auto) 0.6 L, [place] # (Auto) 0.3, Eos # (Auto) 0.0, Baso # (Auto) 0.0, Total Counted 100, Neutrophils % (Manual) 91 H, Band Neutrophils % 6.0, Lymphocytes % (Manual) 2 L, Monocytes % (Manual) 1 L, Platelet Estimate Normal, RBC Morphology Normal 07/25/21 14:48: APTT 43.8 H 07/25/21 14:48: Sodium 127 L, Potassium 2.7 L*, Chloride 99, Carbon Dioxide 25, Anion Gap 5.7, BUN 5 L, Creatinine 0.70, Estimated Creat Clear 71, Estimated GFR 114, Est GFR ( Amer) 138, Glucose 103 H, Calcium 6.8 L, Phosphorus 1.9 L, Magnesium 1.8, Total Bilirubin 0.3, AST 54, ALT 26, Alkaline Phosphatase 127 H, Total Protein 5.5 L, Albumin 2.7 L, Globulin 2.8, Albumin/Globulin Ratio 1.0 L, Vitamin B12 890, Folate 9.61 07/25/21 14:48: Magnesium 1.8 07/26/21 06:36: Sodium 131 L, Potassium 3.1 L, Chloride 101, Carbon Dioxide 27, Anion Gap 6.1, BUN 5 L, Creatinine 0.70, Estimated Creat Clear 73, Estimated GFR 114, Est GFR ( Amer) 138, Glucose 99, Calcium 7.0 L, Total Bilirubin 0.4, AST 77 H D, ALT 30, Alkaline Phosphatase 126, Total Protein 5.4 L, Albumin 2.7 L, Globulin 2.7, Albumin/Globulin Ratio 1.0 L 07/26/21 06:36: WBC 10.3, RBC 4.06 L, Hgb 12.5 L, Hct 38.0 L, MCV 93.6, MCH 30.7, MCHC 32.8, RDW 14.5, Plt Count 635 H, MPV 8.7, Neut % (Auto) 88.1 H, Lymph % (Auto) 7.1 L, [place] % (Auto) 4.3, Eos % (Auto) 0.2, Baso % (Auto) 0.4, Neut # (Auto) 9.0 H, Lymph # (Auto) 0.7, [place] # (Auto) 0.4, Eos # (Auto) 0.0, Baso # (Auto) 0.0 I & O for Last 24 hours: Intake & Output 07/23/21 07/24/21 07/25/21 07/26/21 11:59 11:59 11:59 11:59 Intake Total 720 / 720 390 / 390 2489 / 2489 Output Total 2350 / 2350 1925 / 1925 3450 / 3450 Balance -1630 / -1630 -1535 / -1535 -961 / -961 Weight 145 lb 144 lb 9.6 oz 149 lb 3.2 oz Microbiology Reports for the Last 24 Hours: Microbiology 07/23/21 13:55 Blood Blood Culture - Preliminary NO GROWTH AFTER 48 HOURS 07/23/21 13:55 Blood Blood Culture - Preliminary NO GROWTH AFTER 48 HOURS 07/23/21 13:55 Urine,Catheterized Urine Culture - Final NO GROWTH AFTER 24 HOURS - Constitutional no acute distress, chronically ill appearing - *Routine HEENT Exam Head: Present: normocephalic Eye: Present: PERRL ENT: Present: mucous membranes moist - *Routine Neck Exam Present: supple. Absent: lymphadenopathy - *Routine Respiratory Exam Present: decreased breath sounds, wheezes - *Routine Cardiovascular Exam Present: RRR - *Routine Abdominal Exam Present: soft, normoactive bowel sounds. Absent: tenderness - *Routine Exam Comments: brooks at bedside - *Routine Extremities Exam Absent: cyanosis, clubbing, edema - *Routine Skin Exam Present: warm. Absent: rash - *Routine Neurological Exam Present: alert, oriented X3 pt has wekaness due to MS Assessment and Plan (1) Pneumonia due to COVID-19 virus Status: Acute Category: Medical Code(s): U07.1 - COVID-19; J12.82 - Pneumonia due to coronavirus disease 2019 (2) Acute respiratory failure with hypoxia Status: Acute Category: Medical Code(s): J96.01 -
[2021-07-26 09:25] LABS: Lymphocytes % 1 % (10-50); Monocytes % 7 % (2-9); Neutrophils % 92 % (42-76); Total Cells Counted 100
[2021-07-26 09:26] LABS: Platelet Estimate Normal
--- NOTE | 2021-07-26 10:15 | HMH.PTEV ---
Physical Therapy Evaluation Rehab PT IP Evaluation Start: 07/25/21 14:01 Freq: ONCE Status: Active Protocol: Document 07/26/21 10:11 GLORIA (Rec: 07/26/21 10:15 GLORIA [id number]) Subjective/History History History Carmine is a 61-year-old male with a history of MS and prior stroke with subsequent right- sided weakness and dysarthria is presenting for chief complaint of frequent falls. Patient reports some difficulty breathing and cough and states that he does not use oxygen at home. He is requiring 2 L of supplemental O2 for appropriate SPO2 saturations here. He states that he has been having worsening cough. Additionally , he has had progressive generalized weakness for the past several weeks and has been falling frequently. Subjective Subjective Pt reports willing to participate - nsg reports pt has fever states to replace ice packs Rehab PT IP Eval Objective Appearance Patient Behavior Appropriate,Cooperative Patient Orientation Place,Name,Birthday,Year, Situation Difficulty following instructions none Speech Pattern Baseline Intonation,Garbled Balance Ability to Arise Unable Sitting Balance Leans or slides in chair Standing Balance Unsteady Dynamic Sitting Balance Ability Fair Dynamic Standing Balance Ability Poor Transfers Bed Transfer Ability Supervision/Stand by,Contact Guard/Hand Hold Sit to Stand Bed Transfer Ability Moderate x 2 (50% assist) Rehab PT IP prob,goals,plan Problems Date of Evaluation: 07/26/21 PT IP Problems Bed Mobility,Transfers,Gait, Balance,Self care,Safety Rehab Potential Rehab Potential Fair Equipment Needs Assistive Devices Rolling / Wheeled Walker Plan PT Intervention Plan Bed Mobility,Transfers,Gait, Balance,Self care,Safety, Therapeutic Exercise PT Plan Frequency BID Duration LOS Discharge Goals Bed Transfer Ability Supervision/Stand by,Contac
--- NOTE | 2021-07-26 10:40 | HMH.OTEV ---
OT Inpatient Evaluation Rehab OT IP Evaluation Start: 07/26/21 09:24 Freq: ONCE Status: Complete Protocol: Document 07/26/21 10:25 [facility] (Rec: 07/26/21 10:39 [facility] [id number]) Rehab OT IP Assessment Subjective History Pt oriented x 3 on arrival. Pt agreeable to engage in therapy session. Pt was admitted via ED on 07/23/21 due to COVID and hypoxia. The following information was copied from history and physical report by PCP: this patient with prev cva presented to the ed- c/o frequent falls and weakness. Also c/o fever, productive cough x several weeks. C/O decrease in PO intake x3 days. Carmine is a 61-year-old male with a history of MS and prior stroke with subsequent right- sided weakness and dysarthria is presenting for chief complaint of frequent falls. Patient reports some difficulty breathing and cough and states that he does not use oxygen at home. He is requiring 2 L of supplemental O2 for appropriate SPO2 saturations here. He states that he has been having worsening cough. Additionally , he has had progressive generalized weakness for the past several weeks and has been falling frequently. Sister at bedside states he does not seem baseline to her. Patient denies fever at home but is febrile here with a T- max of 102.2. He denies current chest pain, hemoptysis , abdominal pain, nausea, vomiting, diarrhea, dysuria, blood in stool, hematuria. When he fell today, patient denies hitting his head or losing consciousness. No gross deformities to any
--- NOTE | 2021-07-26 11:25 | SW/DCPLANNER ---
Addendum entered by [facility] 07/28/21 10:38: Johana Hanna has stated that this patient has been approved for today. I have updated Dr Roque/Karina and patients family is aware of this plan. Addendum entered by [facility] 07/28/21 09:41: I have spoke with Johana Betancourt this AM: currently still waiting for approval from patients insurance. Addendum entered by [facility] 07/27/21 12:31: Johana quentinKassidy Sergio Hanna has stated that prior authorization has been started on this patient for their facility. I have updated patients demarcus (Merari) and Sky. Addendum entered by [facility] 07/27/21 09:38: I have attempted to contact Johana Hanna regarding referral: no answer VM left at this time. Addendum entered by [facility] 07/26/21 12:48: Johana Betancourt quentin/ Sergio Hanna has stated that she is in network with patients insurance and does have an active COVID unit: patient information has been faxed. Addendum entered by [facility] 07/26/21 12:36: [facility] is NOT able to accept this patient at this time. Addendum entered by [facility] 07/26/21 11:35: Information has been faxed to Darlene Leal. Original Note: I received a phone call from this patients niece/ROXYRin Gage ([phone]. Merari stated that she was interested in short term placement for this patient once he is medically stable for discharge. I spoke with patient this AM and he stated that he really does not want to go anywhere for placement but is willing to speak with Merari regarding situation. I did have a lengthy conversation with patient/Merari regarding placement: find a facility in network with [employer] (not [facility]) that has a COVID unit. At this time [facility] is not in network with patients insurance and [facility] does not have COVID unit. I have a call out to Beau Nugent and Sergio Hanna. I will continue to follow up with patient and Merari.
--- NOTE | 2021-07-26 13:59 | HMH.PULMCON ---
*Admission Date: 07/24/21 *Reason for consult:: Acute hypoxic respiratory failure, COVID-19 pneumonia *History of present illness: Mr. López is a 61-year-old male carries a diagnosis of COPD, not using any inhalers or oxygen at baseline, not yet vaccinated for COVID-19 pneumonia presented to the hospital with with worsening respiratory distress, found to be positive for COVID-19 PCR and pulmonary was called for further management. [facility] History Medical History: Reports:: Chronic Obstructive Pulmonary Disease (COPD), Coronary Artery Disease, Hypertension Denies:: Cancer, Diabetes Mellitus Type 1, Diabetes Mellitus Type 2, Internal Pacemaker, MRSA, Seizures *Have you ever received a pneumonia vaccine?: No *Have you received a flu vaccine this season?: Yes Other Medical History: Reports: Other Laterality Cases: Right: Carpal Tunnel Release Other Surgeries: Yes: No Previous Surgery, Colonoscopy. No: Pacemaker Amputation: No Fractures: No - *Social History Last grade of school completed: High school graduate Smoking Status: Current every day smoker Tobacco Type: cigarettes # Packs/Day (cigarettes): 30 Alcohol Intake: current Alcohol Intake Frequency:: other Substance Use Type: marijuana *Occupational Status:: disabled Housing: house Household Members: caregiver *Travel in the last 8 weeks: None Family Hx:: Heart Attack, Hyperlipidemia, Hypertension ROS - Review of Systems Review of systems limited as patient having slurred speech and had difficulty understanding what he was saying - Card Reports shortness of breath, Reports shortness of breath with activity - Resp Respiratory: Reports chest congestion, Reports cough, Reports cough with sputum production - GI Gastrointestingal: Reports: abdominal pain - Psych Denies thoughts of hurting/killing others, Denies thoughts of hurting/killing yourself Meds Home Medications Medication Instructions Recorded Confirmed Type ocrelizumab 30 mg/mL intravenous 600 mg IV [id number] 04/02/19 07/23/21 History solution Duloxetine HCl 60 mg PO DAILY 05/08/19 07/24/21 History baclofen 10 mg tablet 10 mg PO TIDP PRN tab 01/27/21 07/24/21 History gabapentin 600 mg tablet 600 mg PO TID tab 04/27/21 07/24/21 History Aspirin [Low Dose Aspirin EC] 81 mg PO DAILY 07/23/21 07/23/21 History Oxybutynin Chloride [Oxybutynin 10 mg PO DAILY 07/23/21 07/23/21 History Chloride ER] Metoprolol Succinate [Metoprolol 25 mg PO DAILY 07/24/21 07/24/21 History Succinate 25mg Tablet*] Allergies Allergy/AdvReac Type Severity Reaction Status Date / Time No Known Allergies Allergy Verified 04/27/21 09:00 Exam - Constitutional Constitutional:: Present: no acute distress, comfortable - HENMT Exam HENMT: Present: normocephalic, atraumatic - Eye Exam Eyes:: Present: normal appearance both eyes and related structures - Neck Exam Neck:: Present: normal visual inspection - Respiratory Exam Respiratory:: Present: able to speak in complete sentences, respiratory distress, wheezing - Cardiovascular Exam Cardiac:: Present: S1, S2 - GI Exam GI:: Present: soft - Skin Exam Skin: Present: warm, no rash - Neurological Exam Neurological: Present: alert, awake, normal cognition - Extremities Exam Extremities: Present: no cyanosis, no clubbing, no edema - Psychiatric Exam Psychiatric: Present: normal affect Internal Medicine - CN: Reslt - Labs CBC & Chem 7: 07/26/21 06:36 07/26/21 06:36 Labs: Short CBC 07/25/21 07/26/21 Range/Units 14:48 06:36 WBC 9.1 10.3 (4.8-10.8) K/mm3 Hgb 11.9 L 12.5 L (14.1-18.0) g/dL Hct 36.6 L 38.0 L (42.0-52.0) % Plt Count 616 H 635 H (142-424) K/mm3 BMP 07/25/21 07/26/21 14:48 06:36 Sodium 127 L 131 L Potassium 2.7 L* 3.1 L Chloride 99 101 Carbon Dioxide 25 27 BUN 5 L 5 L Creatinine 0.70 0.70 Glucose 103 H 99 Calcium 6.8 L 7.0 L Liver Function 07/25/21 07/26/21 Range/Units 1
[2021-07-27] VITALS (13 sets, daily range): BP systolic 103–136; BP diastolic 56–93; PULSE 60–100; RESP 19–21; TEMP 36.4–37.1; O2SAT 89–96; BMI 21.7
[2021-07-27 06:59] LABS: Chloride 101 mmol/L (98-107)
[2021-07-27 07:00] LABS: Potassium 3.6 mmoL/L (3.5-5.1); Sodium 126 mmol/L (136-145)
[2021-07-27 07:02] LABS: Alanine Aminotransferase 59 U/L (12-78); Alkaline Phosphatase 249 U/L (38-126); Aspartate Amino Transferase 147 U/L (17-59); Bilirubin,Total 0.3 mg/dl (0.2-1.3); Blood Urea Nitrogen 4 mg/dl (9-20); Creatinine Clearance Estimated 74 mL/min (50-200); Estimated Glomerular Filt Rate 137 ml/min (>60); GFR (African American) 165 ML/MIN (>60)
[2021-07-27 07:03] LABS: Albumin Level 2.2 g/dl (3.5-5.0); Albumin/Globulin Ratio 0.8 (1.1-1.8); Anion Gap 3.6 mEq/L (5-15); Calcium 6.7 mg/dl (8.4-10.2); Carbon Dioxide 25 mmol/L (22.0-30.0); Globulin 2.6 g/dL (1.3-3.2); Glucose 97 mg/dl (74-100); Total Protein,Serum 4.8 g/dl (6.3-8.2)
[2021-07-27 08:28] LABS: Transferrin 85 mg/dL (177-329)
--- NOTE | 2021-07-27 09:12 | HMH.ACPN2 ---
Internal Medicine - PN: Subj *Date: 07/27/21 *Time: 09:12 Interval history: 61-year-old male patient sitting up in bed resting quietly, states he does feel better today than yesterday, no respiratory distress noted. Current not oxygenation 96% on 2 L per nasal cannula. Discussed discharge to rehab facility, he is in agreement with this, pillowcase sewer notified Exam Vital signs and Labs for Last 24 Hours: Temp Pulse Resp BP Pulse Ox 98.5 F 81 21 106/57 L 92 L 07/27/21 11:32 07/27/21 11:32 07/27/21 11:32 07/27/21 11:32 07/27/21 11:32 Laboratory Results - last 24 hr 07/26/21 06:36: Transferrin 85 L 07/27/21 05:33: Sodium 126 L, Potassium 3.6, Chloride 101, Carbon Dioxide 25, Anion Gap 3.6 L, BUN 4 L, Creatinine 0.60 L, Estimated Creat Clear 74, Estimated GFR 137, Est GFR ( Amer) 165, Glucose 97, Calcium 6.7 L, Total Bilirubin 0.3, AST 147 H D, ALT 59 D, Alkaline Phosphatase 249 H, Total Protein 4.8 L, Albumin 2.2 L D, Globulin 2.6, Albumin/Globulin Ratio 0.8 L I & O for Last 24 hours: Intake & Output 07/24/21 07/25/21 07/26/21 07/27/21 23:59 23:59 23:59 23:59 Intake Total 630 / 630 600 / 600 2369 / 2369 120 / 120 Output Total 2275 / 3275 1000 / 2850 3450 / 4950 2300 / 2300 Balance -1645 / -2645 -400 / -2250 -1081 / -2581 -2180 / -2180 Weight 145 lb 144 lb 9.6 oz 149 lb 0.52 oz 151 lb 4.8 oz Microbiology Reports for the Last 24 Hours: Microbiology 07/24/21 11:00 Blood Blood Culture - Preliminary NO GROWTH AFTER 48 HOURS 07/24/21 11:00 Blood Blood Culture - Preliminary NO GROWTH AFTER 48 HOURS - Constitutional no acute distress - *Routine HEENT Exam Head: Present: normocephalic Eye: Present: EOMI ENT: Present: mucous membranes moist - *Routine Neck Exam Present: trachea midline. Absent: tracheal deviation - *Routine Respiratory Exam Present: wheezes. Absent: accessory muscle use - *Routine Cardiovascular Exam Present: RRR - *Routine Abdominal Exam Present: soft, normoactive bowel sounds. Absent: tenderness, firm - *Routine Extremities Exam Present: full ROM, pulses intact. Absent: cyanosis, clubbing, edema - *Routine Skin Exam Present: intact, dry. Absent: cyanosis, erythema - *Routine Neurological Exam Present: alert - Routine Psychiatric Exam Present: unable to assess Assessment and Plan (1) Pneumonia due to COVID-19 virus Status: Acute Category: Medical Code(s): U07.1 - COVID-19; J12.82 - Pneumonia due to coronavirus disease 2019 (2) Acute respiratory failure with hypoxia Status: Acute Category: Medical Code(s): J96.01 - Acute respiratory failure with hypoxia (3) CVA, old, dysarthria Status: Acute Category: Medical Code(s): I69.322 - Dysarthria following cerebral infarction (4) HTN (hypertension) Status: Chronic Qualifiers: Hypertension type: primary hypertension Qualified Code(s): I10 - Essential (primary) hypertension Category: Medical Code(s): I10 - Essential (primary) hypertension (5) Multiple sclerosis Status: Chronic Category: Medical Code(s): G35 - Multiple sclerosis (6) Low body mass index (BMI) Status: Acute Category: Medical (7) Thrombocytosis Status: Acute Category: Medical Code(s): D75.839 - Thrombocytosis, unspecified (8) Alcohol abuse Status: Chronic Category: Social Hx Code(s): F10.10 - Alcohol abuse, uncomplicated - Assessment and plan all Dx Assessment and Plan for all problems:: Rounded with Dr. Roque, all orders per Dr. Roque: 1. Continue current medical regimen 2. Pulmonology following 3. Begin discharge, photolithographic stripper notified
--- NOTE | 2021-07-27 09:15 | HMH.PULMPN ---
Internal Medicine - PN: Subj *Date: 07/27/21 *Time: 10:43 Interval history: No acute respiratory events overnight. Patient denies any productive phlegm. Exam - Constitutional Constitutional:: Present: no acute distress, comfortable - HENMT Exam HENMT: Present: normocephalic, atraumatic - Eye Exam Eyes:: Present: normal appearance both eyes and related structures - Neck Exam Neck:: Present: normal visual inspection - Respiratory Exam Respiratory:: Present: able to speak in complete sentences, no respiratory distress, rhonchi. Absent: wheezing - Cardiovascular Exam Cardiac:: Present: S1, S2 - GI Exam GI:: Present: soft - Skin Exam Skin: Present: warm, no rash - Neurological Exam Neurological: Present: alert, awake - Extremities Exam Extremities: Present: no cyanosis, no clubbing, no edema Assessment and Plan (1) Pneumonia due to COVID-19 virus Status: Acute Category: Medical Code(s): U07.1 - COVID-19; J12.82 - Pneumonia due to coronavirus disease 2019 (2) Acute respiratory failure with hypoxia Status: Acute Category: Medical Code(s): J96.01 - Acute respiratory failure with hypoxia (3) CVA, old, dysarthria Status: Acute Category: Medical Code(s): I69.322 - Dysarthria following cerebral infarction (4) HTN (hypertension) Status: Chronic Qualifiers: Hypertension type: primary hypertension Qualified Code(s): I10 - Essential (primary) hypertension Category: Medical Code(s): I10 - Essential (primary) hypertension (5) Multiple sclerosis Status: Chronic Category: Medical Code(s): G35 - Multiple sclerosis (6) Low body mass index (BMI) Status: Acute Category: Medical (7) Thrombocytosis Status: Acute Category: Medical Code(s): D75.839 - Thrombocytosis, unspecified (8) Alcohol abuse Status: Chronic Category: Social Hx Code(s): F10.10 - Alcohol abuse, uncomplicated - Assessment and plan all Dx Assessment and Plan for all problems:: #Acute hypoxic respiratory failure: # COVID-19 pneumonia: 62-year-old greater than [id number] smoking history, not yet vaccinated for COVID-19 pneumonia. Present with worsening respiratory distress. Chest x-ray & CTA from admit bilateral diffuse airspace disease with dense lower lobe left consolidation. No evidence of pulmonary embolism noted. Patient was initiated levofloxacin and remdesivir on admission. Patient also noted to have significant electrolyte derangements including hyponatremia and hypokalemia on admission. Blood cultures from admission no growth. Interval update: Patient denies any productive phlegm, no sputum sample available for evaluation. Continue to remain on oxygen supplementation, on 4 L saturating 95% his morning, weaned to 2 L. Does not appear to be in any respiratory distress this morning. Afebrile. Leukocytosis stable. Awaiting [facility] placement. Plan: -Continue nasal oxygen supplementation as needed to maintain O2 saturation goal of 88% and above. -Continue levofloxacin for total of 5 days. -Remdesivir x 5 days OR up until discharge. -Dexamethasone 6 mg daily for 10 days OR up until discharge -DuoNebs every 6 hours scheduled along with budesonide every 12 scheduled. #Thank you for involving pulmonary in this patient care. We will continue to follow.
--- NOTE | 2021-07-27 15:09 | PC.NURSE ---
Patient has been up to chair this shift with help from PT, c/o back pain and wanting to go back to bed almost immediately after getting up to chair, encouraged patient to stay up in chair for a little longer to eat lunch, patient was agreeable to this and tolerated it well. Remains on 2LNC, FC patent and draining clear yellow urine at bedside, vss, will continue to monitor.
[2021-07-28] VITALS (7 sets, daily range): BP systolic 100–135; BP diastolic 48–70; PULSE 65–90; RESP 16–20; TEMP 36.4–36.8; O2SAT 90–93; BMI 22.4
[2021-07-28 06:14] LABS: Basophils % 0.2 % (0.1-2.0); Eosinophils % 0.1 % (0.1-12.0); Hematocrit 32.7 % (42.0-52.0); Hemoglobin 11.1 g/dL (14.1-18.0); Lymphocytes # 0.9 K/mm3 (0.7-4.5); Lymphocytes % 12.3 % (10-50); Mean Corpuscular HGB Conc 33.9 g/dL (31.8-35.4); Mean Corpuscular Hemoglobin 31.5 pg (27.0-31.2); Mean Corpuscular Volume 92.9 fl (80-94); Mean Platelet Volume 8.6 fl (7.4-10.4); Monocytes # 0.4 K/mm3 (0.1-1.0); Monocytes % 5.2 % (1.7-9.3); Neutrophils # 5.7 K/mm3 (1.8-7.8); Neutrophils % 82.2 % (37.0-80.0); Platelet Count 475 K/mm3 (142-424); Red Blood Count 3.52 M/mm3 (4.60-6.20); Red Cell Distribution Width 14.2 % (11.5-17.5); White Blood Count 6.9 K/mm3 (4.8-10.8)
[2021-07-28 06:16] LABS: Chloride 106 mmol/L (98-107); Sodium 132 mmol/L (136-145)
[2021-07-28 06:17] LABS: Potassium 4.1 mmoL/L (3.5-5.1)
[2021-07-28 06:19] LABS: Alanine Aminotransferase 108 U/L (12-78); Albumin Level 2.4 g/dl (3.5-5.0); Albumin/Globulin Ratio 0.9 (1.1-1.8); Alkaline Phosphatase 356 U/L (38-126); Anion Gap 5.1 mEq/L (5-15); Aspartate Amino Transferase 200 U/L (17-59); Bilirubin,Total 0.3 mg/dl (0.2-1.3); Blood Urea Nitrogen 6 mg/dl (9-20); Calcium 7.2 mg/dl (8.4-10.2); Carbon Dioxide 25 mmol/L (22.0-30.0); Creatinine Clearance Estimated 77 mL/min (50-200); Estimated Glomerular Filt Rate 168 ml/min (>60); GFR (African American) 204 ML/MIN (>60); Globulin 2.6 g/dL (1.3-3.2); Glucose 132 mg/dl (74-100)
--- NOTE | 2021-07-28 08:37 | P.PN_ITS ---
Internal Medicine - PN: Subj *Date: 07/28/21 *Time: 08:37 Interval history: pt resting in bed comfortably states he is feeling better. Exam Vital signs and Labs for Last 24 Hours: Temp Pulse Resp BP Pulse Ox 97.6 F 79 16 100/57 L 90 L 07/28/21 07:44 07/28/21 07:44 07/28/21 07:44 07/28/21 07:44 07/28/21 07:44 Laboratory Results - last 24 hr 07/28/21 05:20: WBC 6.9 D, RBC 3.52 L, Hgb 11.1 L, Hct 32.7 L, MCV 92.9, MCH 31.5 H, MCHC 33.9, RDW 14.2, Plt Count 475 H D, MPV 8.6, Neut % (Auto) 82.2 H, Lymph % (Auto) 12.3, [place] % (Auto) 5.2, Eos % (Auto) 0.1, Baso % (Auto) 0.2, Neut # (Auto) 5.7, Lymph # (Auto) 0.9, [place] # (Auto) 0.4, Eos # (Auto) 0.0, Baso # (Auto) 0.0 07/28/21 05:20: Sodium 132 L, Potassium 4.1, Chloride 106, Carbon Dioxide 25, Anion Gap 5.1, BUN 6 L D, Creatinine 0.50 L, Estimated Creat Clear 77, Estimated GFR 168, Est GFR ( Amer) 204 D, Glucose 132 H D, Calcium 7.2 L, Total Bilirubin 0.3, AST 200 H D, ALT 108 H D, Alkaline Phosphatase 356 H, Total Protein 5.0 L, Albumin 2.4 L, Globulin 2.6, Albumin/Globulin Ratio 0.9 L I & O for Last 24 hours: Intake & Output 07/25/21 07/26/21 07/27/21 07/28/21 11:59 11:59 11:59 11:59 Intake Total 390 / 390 2489 / 2489 480 / 480 360 / 360 Output Total 1925 / 1925 3450 / 3450 2300 / 2300 2004 / 2004 Balance -1535 / -1535 -961 / -961 -1820 / -1820 -1645 / -1645 Weight 144 lb 9.6 oz 149 lb 0.52 oz 151 lb 4.8 oz 157 lb - Constitutional no acute distress, chronically ill appearing - *Routine HEENT Exam Head: Present: normocephalic Eye: Present: PERRL ENT: Present: mucous membranes moist - *Routine Neck Exam Present: supple. Absent: lymphadenopathy - *Routine Respiratory Exam Present: CTA bilaterally - *Routine Cardiovascular Exam Present: RRR - *Routine Abdominal Exam Present: soft, normoactive bowel sounds. Absent: tenderness - *Routine Extremities Exam Absent: cyanosis, clubbing, edema - *Routine Skin Exam Present: warm. Absent: rash - *Routine Neurological Exam Present: alert, oriented X3 weakness due to ms Assessment and Plan (1) Pneumonia due to COVID-19 virus Status: Acute Category: Medical Code(s): U07.1 - COVID-19; J12.82 - Pneumonia due to coronavirus disease 2019 (2) Acute respiratory failure with hypoxia Status: Acute Category: Medical Code(s): J96.01 - Acute respiratory failure with hypoxia (3) CVA, old, dysarthria Status: Acute Category: Medical Code(s): I69.322 - Dysarthria following cerebral infarction (4) HTN (hypertension) Status: Chronic Qualifiers: Hypertension type: primary hypertension Qualified Code(s): I10 - Essential (primary) hypertension Category: Medical Code(s): I10 - Essential (primary) hypertension (5) Multiple sclerosis Status: Chronic Category: Medical Code(s): G35 - Multiple sclerosis (6) Low body mass index (BMI) Status: Acute Category: Medical (7) Thrombocytosis Status: Acute Category: Medical Code(s): D75.839 - Thrombocytosis, u nspecified (8) Alcohol abuse Status: Chronic Category: Social Hx Code(s): F10.10 - Alcohol abuse, uncomp licated - Assessment and plan all Dx Assessment and Plan for all problems:: rounded with dr garcia all orders per dr chowdary waiting on placement at [facility]
--- NOTE | 2021-07-28 09:13 | HMH.PULMPN ---
Internal Medicine - PN: Subj *Date: 07/28/21 *Time: 11:05 Interval history: No acute respiratory events overnight. Patient admits continued improvement in his symptoms. Exam - Constitutional Constitutional:: Present: no acute distress, comfortable - HENMT Exam HENMT: Present: normocephalic, atraumatic - Eye Exam Eyes:: Present: normal appearance both eyes and related structures - Neck Exam Neck:: Present: normal visual inspection - Respiratory Exam Respiratory:: Present: able to speak in complete sentences, no respiratory distress. Absent: crackles, wheezing - Cardiovascular Exam Cardiac:: Present: S1, S2 - GI Exam GI:: Present: soft - Skin Exam Skin: Present: warm, no rash - Neurological Exam Neurological: Present: alert, awake - Extremities Exam Extremities: Present: no cyanosis, no clubbing, no edema Assessment and Plan (1) Pneumonia due to COVID-19 virus Status: Acute Category: Medical Code(s): U07.1 - COVID-19; J12.82 - Pneumonia due to coronavirus disease 2019 (2) Acute respiratory failure with hypoxia Status: Acute Category: Medical Code(s): J96.01 - Acute respiratory failure with hypoxia (3) CVA, old, dysarthria Status: Acute Category: Medical Code(s): I69.322 - Dysarthria following cerebral infarction (4) HTN (hypertension) Status: Chronic Qualifiers: Qualified Code(s): I10 - Essential (primary) hypertension Category: Medical Code(s): I10 - Essential (primary) hypertension (5) Multiple sclerosis Status: Chronic Category: Medical Code(s): G35 - Multiple sclerosis (6) Low body mass index (BMI) Status: Acute Category: Medical (7) Thrombocytosis Status: Acute Category: Medical Code(s): D75.839 - Thrombocytosis, unspecified (8) Alcohol abuse Status: Chronic Category: Social Hx Code(s): F10.10 - Alcohol abuse, uncomplicated - Assessment and plan all Dx Assessment and Plan for all problems:: #Acute hypoxic respiratory failure: # COVID-19 pneumonia: 62-year-old greater than [id number] smoking history, not yet vaccinated for COVID-19 pneumonia. Present with worsening respiratory distress. Chest x-ray & CTA from admit bilateral diffuse airspace disease with dense lower lobe left consolidation. No evidence of pulmonary embolism noted. Patient was initiated levofloxacin and remdesivir on admission. Patient also noted to have significant electrolyte derangements including hyponatremia and hypokalemia on admission. Blood cultures from admission no growth. Interval update: Respiratory status continued to improve, saturating 95% on 2 L nasal cannula, weaned to room air. Afebrile. Leukocytosis stable. Awaiting shelter placement. Plan: -Oxygen as needed to maintain O2 saturation goal of 88% and above. -Continue levofloxacin for total of 5 days. -Remdesivir x 5 days OR up until discharge. -Dexamethasone 6 mg daily for 10 days OR up until discharge -DuoNebs every 6 hours scheduled along with budesonide every 12 scheduled. Recommend to be discharged on triple inhaler therapy along with as needed DuoNeb's #Thank you for involving pulmonary in this patient care. We will follow in pulmonary clinic in 4 to 6 weeks with a full PFT and 6-minute walk testing.
--- NOTE | 2021-07-28 10:57 | HMH.DCSUM ---
General - General Admission date:: 07/23/21 Discharge date: 07/28/21 HPI HPI: this patient with prev cva presented to the ed- c/o frequent falls and weakness. Also c/o fever, productive cough x several weeks. C/O decrease in PO intake x3 days. Carmine is a 61-year-old male with a history of MS and prior stroke with subsequent right-sided weakness and dysarthria is presenting for chief complaint of frequent falls. Patient reports some difficulty breathing and cough and states that he does not use oxygen at home. He is requiring 2 L of supplemental O2 for appropriate SPO2 saturations here. He states that he has been having worsening cough. Additionally, he has had progressive generalized weakness for the past several weeks and has been falling frequently. Sister at bedside states he does not seem baseline to her. Patient denies fever at home but is febrile here with a T-max of 102.2. He denies current chest pain, hemoptysis, abdominal pain, nausea, vomiting, diarrhea, dysuria, blood in stool, hematuria. When he fell today, patient denies hitting his head or losing consciousness. No gross deformities to any extremity though he has a superficial cut on his left foot. pt with abn cxr and positive covid-19 and was admitted to hospital for meds and o2 and ivf Hospital Course Hospital Course: Abnormal lab results 07/28/21 07/28/21 Range/Units 05:20 05:20 RBC 3.52 L (4.60-6.20) M/mm3 Hgb 11.1 L (14.1-18.0) g/dL Hct 32.7 L (42.0-52.0) % MCH 31.5 H (27.0-31.2) pg Plt Count 475 H D (142-424) K/mm3 Neut % (Auto) 82.2 H (37.0-80.0) % Sodium 132 L (136-145) mmol/L BUN 6 L D (9-20) mg/dl Creatinine 0.50 L (0.66-1.25) mg/dl Glucose 132 H D (74-100) mg/dl Calcium 7.2 L (8.4-10.2) mg/dl AST 200 H D (17-59) U/L ALT 108 H D (12-78) U/L Alkaline Phosphatase 356 H (38-126) U/L Total Protein 5.0 L (6.3-8.2) g/dl Albumin 2.4 L (3.5-5.0) g/dl Albumin/Globulin Ratio 0.9 L (1.1-1.8) Microbiology 07/24/21 11:00 Blood Blood Culture - Preliminary NO GROWTH AFTER 48 HOURS 07/24/21 11:00 Blood Blood Culture - Preliminary NO GROWTH AFTER 48 HOURS 07/23/21 13:55 Blood Blood Culture - Preliminary NO GROWTH AFTER 48 HOURS 07/23/21 13:55 Blood Blood Culture - Preliminary NO GROWTH AFTER 48 HOURS 07/23/21 13:55 Urine,Catheterized Urine Culture - Final NO GROWTH AFTER 24 HOURS Ordering Physician: Mo Iraheta MD Date of Service: 07/26/21 Procedure(s): XR chest portable Accession Number(s): [id number] cc: Eric Duncan MD; Luis E Roque MD~ PROCEDURE INFORMATION: Exam: XR Chest Exam date and time: 07/26/2021 6:00 AM Age: 61 years old Clinical indication: Cough and shortness of breath and other: Covid pneumonia TECHNIQUE: Imaging protocol: XR of the chest. Views: 1 view. COMPARISON: CR XR CHEST PORTABLE 07/23/2021 2:14 PM FINDINGS: Lungs: [id number] interstitial/alveolar opacities bilaterally; question pneumonia. Pleural spaces: Unremarkable. No pleural effusion. No pneumothorax. Heart/Mediastinum: Unremarkable. No cardiomegaly. Bones/joints: Scoliosis and degenerative changes of the spine. IMPRESSION: Overall, similar appearance to previous. [id number] interstitial/alveolar opacities bilaterally; question pneumonia. Ordering Physician: Luis E Roque MD Date of Service: 07/24/21 Procedure(s): CT angio chest PE protocol Accession Number(s): [id number] cc: Luis E Roque MD; Jama Roberts MD~ PROCEDURE INFORMATION: Exam: CTA Chest With Contrast Exam date and time: 07/24/2021 10:00 AM Age: 61 years old Clinical indication: Shortness of breath and other: Covid; Additional info: Sob/covid-19 TECHNIQUE: Imaging protocol: Computed tomograp
--- NOTE | 2021-07-28 12:49 | PC.NURSE ---
Contacted [facility] regarding need for transfer, they are bringing a pt on emergent transport to and then will be here to bring pt to [facility]. Beatriz Cervantes, care management notified.
[2021-08-01 18:08] LABS: Vitamin B1 84.4 nmol/L (66.5-200.0)
== END 2021-07-28 13:30 | DRG 177 ==
LOC: ER 15:58 → 2ND 07-24 07:14
PROVIDERS: Family Medicine; Nurse Practitioner Family; Admitting Provider Emergency Medicine; Emergency Provider Emergency Medicine; PCP Emergency Medicine; Visit Provider Emergency Medicine
DX: U07.1 COVID-19 (principal); J96.01 Acute respiratory failure with hypoxia; J12.82 Pneumonia due to coronavirus disease 2019; I69.354 Hemiplegia and hemiparesis following cerebral infarction affecting left non-dominant side; J44.0 Chronic obstructive pulmonary disease with (acute) lower respiratory infection; G35 Multiple sclerosis; I69.322 Dysarthria following cerebral infarction; F17.210 Nicotine dependence, cigarettes, uncomplicated; I10 Essential (primary) hypertension; I25.10 Atherosclerotic heart disease of native coronary artery without angina pectoris; D75.839 Thrombocytosis, unspecified; F10.10 Alcohol abuse, uncomplicated; W19.XXXA Unspecified fall, initial encounter
CPT/HCPCS: 36415; 51702; 71045; 71275; 80048; 80053; 80076; 81001; 82607; 82746; 82803; 83605; 83735; 84100; 84425; 84466; 84484; 85007; 85025; 85730; 87040; 87086; 87507; 93005; 93308; 94640; 94761; 96365; 96366; 96367; 97110; 97116; 97162; 97166; 97530; 99285; C9803; J1956; J2543; J3370; Q9967; U0003; U0005

== ENCOUNTER → 2021-09-01 09:26 | Outpatient (CLI) | payer MEDICARE, MEDICAID, SELFPAY ==
[2021-09-01 10:45] VITALS: PULSE 94; PULSE 96
== END ==
PROVIDERS: PCP Emergency Medicine; Visit Provider Internal Medicine Pulmonary Disease
DX: J44.9 Chronic obstructive pulmonary disease, unspecified (principal); R05.9 Cough, unspecified; R06.02 Shortness of breath
CPT/HCPCS: 94060; 94640; 94727; 94729

== ENCOUNTER → 2021-11-30 08:38 | Outpatient (CLI) | payer MEDICARE, MEDICAID, SELFPAY ==
--- NOTE | 2021-11-30 08:48 | XR_ITS ---
FINAL REPORT CLINICAL HISTORY: hip pain COMPARISON: CT dated January 18, 2019 FINDINGS: RIGHT HIP Two views of the right hip with an AP pelvis demonstrate no acute fracture or dislocation. There is severe degenerative change of the right hip. The severe degenerative changes were also noted on the prior CT exam. There is mild degenerative change of the left hip. There are multiple subchondral cysts of the right superior femoral head and superior acetabulum. There is moderate degenerative change of the lower lumbar spine. There are mild vascular calcifications. IMPRESSION: Degenerative changes with no acute bony abnormality. Reviewed, Interpreted and Dictated by Paul Morrison III, MD Transcribed by Krystyna Donnelly Authenticated and [facility]
== END ==
PROVIDERS: PCP Emergency Medicine; Visit Provider Physician Assistant Surgical
DX: M25.551 Pain in right hip (principal)
CPT/HCPCS: 73502

== ENCOUNTER → 2022-04-04 15:44 | Outpatient (CLI) | payer MEDICARE, MEDICAID, SELFPAY ==
[2022-04-04 18:23] LABS: Amphetamine/Metha Screen,Urine Negative ng/ml (<1000)
[2022-04-04 18:24] LABS: Barbiturates Screen,Urine Negative ng/ml (<200)
[2022-04-04 18:25] LABS: Benzodiazepines Screen,Urine Negative ng/ml (<200); Cannabinoid Screen,Urine Positive ng/ml (<50)
[2022-04-04 18:27] LABS: Cocaine Screen,Urine Negative ng/ml (<300)
[2022-04-04 18:28] LABS: Methadone Screen,Urine Negative ng/ml (<300); Opiate Screen,Urine Negative ng/ml (<300)
[2022-04-04 18:29] LABS: Phencyclidine Screen,Urine Negative ng/ml (<25)
== END ==
PROVIDERS: PCP Emergency Medicine; Visit Provider Emergency Medicine
DX: Z79.899 Other long term (current) drug therapy (principal)
CPT/HCPCS: 80305

== ENCOUNTER → 2022-05-07 19:33 | Outpatient (CLI) | payer MEDICARE, MEDICAID, SELFPAY ==
[2022-05-07 20:20] LABS: Microscopic, Urine URINE MICROSCOPIC (MICROSCOPIC)
[2022-05-07 20:26] LABS: Appearance,Urine TURBID (Clear); Blood, Urine 1+ (Negative); Color,Urine YELLOW (Yellow); Glucose,Urine (UA) Negative (Negative); Ketones,Urine Negative (Negative); Leukocyte Esterase,Urine 3+ (Negative); Nitrate,Urine Negative (Negative); PH,Urine 8.5 (5.0-8.5); Protein,Urine 3+ (Negative); Urobilinogen,Urine 0.2 EU/dl (0.2)
[2022-05-07 20:33] LABS: Bilirubin,Urine 1+ (Negative)
[2022-05-07 20:56] LABS: RBC,Urine Occasional #/hpf (0-3)
[2022-05-07 20:57] LABS: Bacteria,Urine 3+ /lpf; Mucus,Urine 4+ /lpf; Triple Phosphate Crystal,Urine Trace /lpf
[2022-05-07 21:06] LABS: Barbiturates Screen,Urine Negative ng/ml (<200); Benzodiazepines Screen,Urine Negative ng/ml (<200)
[2022-05-07 21:07] LABS: Amphetamine/Metha Screen,Urine Negative ng/ml (<1000); Methadone Screen,Urine Negative ng/ml (<300)
[2022-05-07 21:08] LABS: Cannabinoid Screen,Urine Negative ng/ml (<50)
[2022-05-07 21:09] LABS: Cocaine Screen,Urine Negative ng/ml (<300); Opiate Screen,Urine Negative ng/ml (<300)
[2022-05-07 21:10] LABS: Phencyclidine Screen,Urine Negative ng/ml (<25)
== END ==
PROVIDERS: PCP Emergency Medicine; Visit Provider Emergency Medicine
DX: N39.0 Urinary tract infection, site not specified (principal); B96.4 Proteus (mirabilis) (morganii) as the cause of diseases classified elsewhere; Z79.899 Other long term (current) drug therapy
CPT/HCPCS: 80305; 81001; 87086; 87088; 87186

== ENCOUNTER → 2022-06-07 15:28 | Outpatient (CLI) | payer MEDICARE, MEDICAID, SELFPAY ==
--- NOTE | 2022-06-07 15:28 | CT_ITS ---
FINAL REPORT CLINICAL HISTORY: lung cancer screening, 8 cigs a day, smoker for 35 years COMPARISON: July 24, 2021 FINDINGS: Low-Dose Chest CT Axial images were obtained from the lung apex to the mid abdomen by computed tomography. Low-dose protocol was utilized. CTDI vol (mGy): 2.90 DLP (mGy-cm): 117.77 There is no axillary adenopathy. There are several small mediastinal lymph nodes, improved. There is no hilar adenopathy. The heart is proper size. There is no pericardial or pleural effusion. Lung window images demonstrate mild changes of emphysema and mild pulmonary scarring. There has been overall marked improvement in widespread ground-glass opacities and bilateral lower lobe opacities. There is a 7 mm irregular nodular opacity in the superior segment of the left lower lobe seen on image 26. This was partially obscured by opacities on the prior exam but is probably stable. There are several calcified granulomas in the right upper lobe. Limited images of the upper abdomen are unremarkable. IMPRESSION: 7 mm irregular nodular opacity in the left lower lobe, probably stable. Lung RADS category 2. Recommend 12 month follow-up low-dose chest CT. Reviewed, Interpreted and Dictated by Paul Morrison III, MD Transcribed by Elyse Cr Authenticated and [facility]
== END ==
PROVIDERS: PCP Emergency Medicine; Visit Provider Internal Medicine Pulmonary Disease
DX: Z87.891 Personal history of nicotine dependence (principal); Z12.2 Encounter for screening for malignant neoplasm of respiratory organs
CPT/HCPCS: 71271

== ENCOUNTER → 2022-11-14 13:06 | Outpatient (CLI) | payer MEDICARE, MEDICAID, SELFPAY ==
--- NOTE | 2022-11-14 13:07 | CT_ITS ---
FINAL REPORT TECHNIQUE: Thin section axial images were obtained from the lung apices through the upper abdomen without contrast. This study was performed with techniques to keep radiation doses as low as reasonably achievable (ALARA). Individualized dose reduction techniques using automated exposure control or adjustment of mA and/or kV according to the patient's size were employed. CLINICAL HISTORY: Nodule 6 Mth F/U November 2022 COMPARISON: 06/07/2022 FINDINGS: There are small mediastinal lymph nodes which are stable. There is no axillary or hilar adenopathy. No pleural or pericardial effusion. There is a 9 mm nodule in the superior segment of the left lower lobe, previously measured 9 mm upon remeasurement. This is likely unchanged. There is granulomatous disease noted. A few reticular nodular opacities are seen in the right lower lobe which are new. There is worsening atelectasis. Limited, unenhanced evaluation of the upper abdomen demonstrates fatty infiltration of the liver. There is no acute osseous abnormality. IMPRESSION: 9 mm nodule in the superior segment of the left lower lobe, stable. Recommend follow-up. New reticular nodular opacities in the right lower lobe, favor infectious or inflammatory. This could be re-evaluated at time of follow-up. Reviewed, Interpreted and Dictated by Carolyne Fleming MD Transcribed by Catherine Ryder Authenticated and [facility]
== END ==
PROVIDERS: PCP Emergency Medicine; Visit Provider Internal Medicine Pulmonary Disease
DX: R91.8 Other nonspecific abnormal finding of lung field (principal)
CPT/HCPCS: 71250

== ENCOUNTER → 2022-11-28 09:42 | Outpatient (CLI) | payer MEDICARE, MEDICAID, SELFPAY ==
--- NOTE | 2022-11-28 09:42 | MR_ITS ---
FINAL REPORT CLINICAL HISTORY: MS follow-up 15ml prohance injected FINDINGS: Multiplanar MR imaging of the brain was performed without and with contrast. There is localized thinning of the mid corpus callosum. Extensive abnormal signal is seen in the periventricular white matter bilaterally likely related to perivascular demyelination. There is no evidence of intracranial hemorrhage or mass. No abnormal extra-axial fluid collection is seen. The ventricular size is within normal limits. There is no evidence of shift of the midline structures. The posterior fossa and brainstem have an unremarkable appearance. No area of abnormal restricted diffusion is identified. No abnormal contrast enhancement is seen. There are minimal changes of chronic right mastoiditis. IMPRESSION: Extensive changes of perivascular demyelination. Chronic right mastoiditis. Reviewed, Interpreted and Dictated by Declan Grubbs MD Transcribed by Catherine Ryder Authenticated and [facility]
--- NOTE | 2022-11-28 09:42 | MR_ITS ---
FINAL REPORT CLINICAL HISTORY: Demyelinating disorder COMPARISON: None FINDINGS: Multi planar MR imaging was obtained of the cervical spine. There is abnormal decreased signal throughout the cervical discs. The vertebrae are of normal height. There is no malalignment. The cervical cord demonstrates normal signal and configuration. Specifically, no obvious areas of demyelination are noted in the cervical cord. C2-C3: There is no evidence of significant disc bulge or protrusion. There is no significant facet hypertrophy. C3-C4: There is no evidence of significant disc bulge or protrusion. There is no significant facet hypertrophy. C4-C5: There is no evidence of significant disc bulge or protrusion. Mild hypertrophic change is present at the C4-C5 level along with mild bilateral neural foraminal narrowing.. C5-C6: There is no evidence of significant disc bulge or protrusion. Mild hypertrophic change is present at the C5-C6 level along with mild bilateral neural foraminal narrowing. C6-C7: There is no evidence of significant disc bulge or protrusion. Mild hypertrophic changes present at the C6-C7 level along with mild bilateral neural foraminal narrowing. C7-T1: There is no evidence of significant disc bulge or protrusion. There is no significant facet hypertrophy. IMPRESSION: Mild multilevel degenerative change as described above. No abnormal signal within the cervical cord to suggest areas of demyelination. Reviewed, Interpreted and Dictated by Declan Grubbs MD Transcribed by Anni Umana Authenticated and [facility][1]
== END ==
PROVIDERS: PCP Emergency Medicine; Visit Provider Specialist
DX: G35 Multiple sclerosis (principal); R27.0 Ataxia, unspecified
CPT/HCPCS: 70553; 72141; 76376; A9576

== ENCOUNTER → 2023-03-21 08:04 | Outpatient (CLI) | payer MEDICARE, MEDICAID, SELFPAY ==
[2023-03-21 08:43] LABS: Basophils # 0.1 K/mm3 (0-0.2); Basophils % 0.6 % (0.1-2.0); Eosinophils # 0.4 K/mm3 (0.0-0.4); Eosinophils % 4.1 % (0.1-12.0); Hemoglobin 15.2 g/dL (14.1-18.0); Lymphocytes # 2.6 K/mm3 (0.7-4.5); Lymphocytes % 29.1 % (10-50); Mean Corpuscular Hemoglobin 28.2 pg (27.0-31.2); Mean Platelet Volume 7.1 fl (7.4-10.4); Monocytes # 0.6 K/mm3 (0.1-1.0); Monocytes % 6.6 % (1.7-9.3); Neutrophils # 5.4 K/mm3 (1.8-7.8); Neutrophils % 59.6 % (37.0-80.0); Platelet Count 317 K/mm3 (142-424); Red Blood Count 5.39 M/mm3 (4.60-6.20); Red Cell Distribution Width 13.8 % (11.5-17.5)
[2023-03-21 09:21] LABS: Chloride 101 mmol/L (98-107); Potassium 4.1 mmoL/L (3.5-5.1); Sodium 141 mmol/L (136-145)
[2023-03-21 09:23] LABS: Blood Urea Nitrogen 13 mg/dl (9-20); Estimated Glomerular Filt Rate 68 ml/min (>60); GFR (African American) 82 ML/MIN (>60)
[2023-03-21 09:24] LABS: Alanine Aminotransferase 32 U/L (12-78); Albumin Level 4.3 g/dl (3.5-5.0); Albumin/Globulin Ratio 1.5 (1.1-1.8); Alkaline Phosphatase 130 U/L (38-126); Anion Gap 15.1 mEq/L (5-15); Aspartate Amino Transferase 29 U/L (17-59); Bilirubin,Total 0.5 mg/dl (0.2-1.3); Calcium 9.4 mg/dl (8.4-10.2); Carbon Dioxide 29 mmol/L (22.0-30.0); Globulin 2.9 g/dL (1.3-3.2); Glucose 99 mg/dl (74-100); Total Protein,Serum 7.2 g/dl (6.3-8.2)
[2023-03-21 12:14] LABS: Folate 5.31 ng/mL; Vitamin B12 > 1000 pg/mL (239-931)
[2023-03-22 13:20] LABS: HBsAg Screen Negative (Negative); HCV Ab Non Reactive (Non Reactive); Hep A Ab, IGM Negative (Negative); Hep B Core Ab, IgM Negative (Negative)
== END ==
PROVIDERS: PCP Emergency Medicine; Visit Provider Specialist
DX: R00.0 Tachycardia, unspecified (principal); G35 Multiple sclerosis; R53.1 Weakness; R27.0 Ataxia, unspecified
CPT/HCPCS: 36415; 80053; 80074; 82607; 82746; 84443; 85025

== ENCOUNTER 2023-03-27 09:02 | Outpatient (CLI) | payer MEDICARE, MEDICAID, SELFPAY ==
[2023-03-27] VITALS (12 sets, daily range): BP systolic 101–148; BP diastolic 61–92; PULSE 63–83; RESP 18; TEMP 36.7; O2SAT 96
== END 2023-03-27 14:23 | disposition home or self-care (01) ==
LOC: INF 09:02
PROVIDERS: PCP Emergency Medicine; Visit Provider Specialist
DX: G35 Multiple sclerosis (principal)
CPT/HCPCS: 96413; 96415; J2350

== ENCOUNTER → 2023-04-10 08:46 | Outpatient (CLI) | payer MEDICARE, MEDICAID, SELFPAY ==
--- NOTE | 2023-04-10 08:58 | PC.NURSE ---
pt medication not here; pt to receive dose on 04/12/23
== END ==
PROVIDERS: PCP Emergency Medicine; Visit Provider Emergency Medicine
DX: G35 Multiple sclerosis (principal)

== ENCOUNTER 2023-04-12 10:03 | Outpatient (CLI) | payer MEDICARE, MEDICAID, SELFPAY ==
[2023-04-12] VITALS (8 sets, daily range): BP systolic 118–140; BP diastolic 60–79; PULSE 66–76; RESP 18; TEMP 36.8; O2SAT 97
== END 2023-04-12 14:10 | disposition home or self-care (01) ==
LOC: INF 10:05
PROVIDERS: PCP Emergency Medicine; Visit Provider Specialist
DX: G35 Multiple sclerosis (principal)
CPT/HCPCS: 96413; 96415; J2350

== ENCOUNTER → 2023-05-16 12:55 | Outpatient (CLI) | payer MEDICARE, MEDICAID, SELFPAY ==
--- NOTE | 2023-05-16 12:55 | CT_ITS ---
FINAL REPORT TECHNIQUE: Axial images were obtained from the lung apex to the mid abdomen by computed tomography. Coronal and sagittal reformatted images were obtained. This study was performed with techniques to keep radiation doses as low as reasonably achievable, (ALARA). Individualized dose reduction techniques using automated exposure control or adjustment of mA and/or kV according to the patient's size were employed. CLINICAL HISTORY: Nodule F/U COMPARISON: 11/14/2022 FINDINGS: There is no axillary adenopathy. There is no hilar or mediastinal adenopathy. Heart size is normal. Severe coronary artery calcifications are again noted. Mild changes of emphysema are present. There is no pericardial or pleural effusion. Fatty infiltration of the liver is again noted as well as vascular calcifications. The nodule in the superior segment of the left lower lobe noted on the prior chest CT remains present, it measures 9 mm, which is stable. There has been interval resolution of the small nodular opacities in the right lung base since the prior CT. 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 IMPRESSION: 9 mm nodule in the superior segment of the left lower lobe remained stable since the prior chest CT. Would recommend a 12-month follow-up CT for continued evaluation. The small nodular opacities in the right lung base have resolved since the prior exam. Severe coronary artery calcifications are again identified. Reviewed, Interpreted and Dictated by Paul Morrison III, MD Transcribed by Anni Umana Authenticated and [facility]
== END ==
PROVIDERS: PCP Emergency Medicine; Visit Provider Internal Medicine Pulmonary Disease
DX: R91.8 Other nonspecific abnormal finding of lung field (principal)
CPT/HCPCS: 71250

== ENCOUNTER 2023-09-07 09:04 | Outpatient (POV) | payer MEDICARE, MEDICAID, SELFPAY ==
--- NOTE | 2023-09-07 09:14 | EXP.PAIN.OV ---
HPI Data of Consult Patient: new to practice Consult date: 09/07/23 Requesting Physician: Veronique Neves APRN Primary Care Provider: Nathan Fleming DO Consult Narrative Reason for consult: Neck pain, low back pain, right hip pain History of present illness: Mr. López is a 63 year old male who presents today as a new patient. He is a referral from Sophie Beltran's office. Today he rates his pain an 8 out of 10. Patient states his pain is in multiple areas including his neck and denies any radiating symptoms to his upper extremities as well as his low back and right hip going down his entire right extremity. He states he has little pain that will occasionally go into his legs. Patient does state that this is a chronic issue and has been going on for some time. He describes his pain as a aching, throbbing sensation with some numbness and tingling down his entire right extremity to his foot. Patient does state that he had his right hip replaced at [facility] however recently he did start experiencing worsening pain about 8 months ago. Patient states he felt like he had a knot on his hip and that they did do x-ray with no acute findings. He does state the pain interferes with his ability perform activities of daily living such as cooking and cleaning. Patient denies any prior surgery. He does state about 10 years ago he went to a pain management facility where they did 2 injections and they did not seem to provide much improvement. Patient has tried physical therapy and states that it helped some. Patient just completed physical therapy about 1 month ago. Patient is a resident over at [facility] and states he does use gabapentin, tramadol and Tylenol for some of his pain symptoms. His Sen has been reviewed and is appropriate. CC: Veronique Neves APRN [facility] Disclaimer: The information contained in this section may have been updated after the patient was seen, as this information can be updated by other users. Medical History Bilateral impacted cerumen Cervical spondylosis Chronic back pain Cognitive communication deficit COPD (chronic obstructive pulmonary disease) CVA, old, dysarthria DDD (degenerative disc disease), thoracic Depression Dyspnea on exertion Foraminal stenosis of cervical region Heart murmur Hip osteoarthritis Hip pain, right Mild aortic regurgitation Multiple pulmonary nodules Multiple sclerosis Awaiting approval for Ocrevus IV infusion. Smoking greater than 30 pack years Tobacco abuse Unspecified abnormalities of gait and mobility Surgical History History of total right hip arthroplasty Family History Other Asthma Cancer Hypertension Stroke Thyroid disorder Social History Smoking Status: Current every day smoker tobacco type: e-cigarettes alcohol intake: former substance use type: former substance user and marijuana current occupational status: disabled Travel in the last 8 weeks: None household members: caregiver housing: house marital status: current occupational exposures/hazards: No caffeine: Yes Review of Systems Review of Systems Review of systems:: pertinent systems reviewed and negative unless documented below Review of systems (narrative): Review of Systems: General: No recent weight changes, no fever, no sleep disturbances Respiratory: No cough, no shortness of air, no recurring pulmonary infections Cardiovascular/peripheral vascular: No chest pain, no palpitations, no edema, no shortness of breath Gastrointestinal: No new onset incontinence, normal bowel movements reported Genitourinary: No new onset incontinence Musculoskeletal: Neck pain, low back pain, right hip pain, right leg pain Psychiatric: [Normal mood/affect] Neurological: [Denies weakness in extremities], [denies balance issues] Meds Home Medications and Allergies Home Medications Medication Instructions Recorded Confirmed Type baclofen 10 mg tablet 10 mg PO TIDP PRN MUSCLE SPASMS 01/27/21 05/16/23 History aspirin 81 mg tablet,delayed 81 mg PO DAILY heart health 07/23/21 05/16/23 History release senna-fennel tablet 1 tab PO DAILY 03/09/22 05/16/23 History albuterol sulfate 90 mcg/actuation 1 inh inhalation QID PRN shortness 06/07/22 05/16/23 Rx aerosol inhaler of breath or wheezing #8.5 grams omeprazole 20 mg capsule,delayed 20 mg PO DAILY 06/07/22 05/16/23 History release tiotropium 2.5 mcg-olodaterol 2.5 2 puff inhalation DAILY 06/07/22 05/16/23 History mcg/actuation mist for inhalation (Stiolto Respimat) acetaminophen 500 mg oral powder 500 mg PO Q6H PRN 11/17/22 05/16/23 History packet (Tylenol Extra Strength) aluminum hydrox-magnesium carb 95 15 ml PO QPCHS PRN 11/17/22 05/16/23 History mg-358 mg/15 mL oral suspension (Gaviscon) bisacodyl 5 mg tablet 10 mg PO DAILY PRN 11/17/22 05/16/23 History oxybutynin chloride 10 mg 10 mg PO DAILY 11/17/22 05/16/23 History tablet,extended release 24 hr duloxetine 60 mg capsule,delayed 60 mg PO DAILY 04/24/23 05/16/23 History release cyanocobalamin (vitamin B-12) 1,000 mcg SQ QMONTH 05/17/23 History 1,000 mcg/mL injection kit tramadol 50 mg tablet 50 mg PO TID #90 tabs 08/02/23 Rx gabapentin 600 mg tablet 600 mg PO TID NEUROPATHY 30 days 09/01/23 Rx #90 tabs New Prescriptions to Start Prescriptions: Allergies Allergy/AdvReac Type Severity Reaction Status Date / Time No Known Allergies Allergy Verified 07/01/23 16:55 Objective Narrative: Physical Exam: General: Alert and oriented x3, no acute distress, pleasant and cooperative Lungs: Respirations even and unlabored, symmetrical chest expansion Eyes: PERRL Musculoskeletal: Flexion and extension of lumbar [spine] somewhat guarded secondary to pain, [antalgic gait noted] positive right leg raise with decreased sensation to light touch and decreased reflexes Neurological: Speech clear, no gross sensory deficit Additional findings Additional findings: FINDINGS: Multi planar MR imaging was obtained of the cervical spine. There is abnormal decreased signal throughout the cervical discs. The vertebrae are of normal height. There is no malalignment. The cervical cord demonstrates normal signal and configuration. Specifically, no obvious areas of demyelination are noted in the cervical cord. C2-C3: There is no evidence of significant disc bulge or protrusion. There is no significant facet hypertrophy. C3-C4: There is no evidence of significant disc bulge or protrusion. There is no significant facet hypertrophy. C4-C5: There is no evidence of significant disc bulge or protrusion. Mild hypertrophic change is present at the C4-C5 level along with mild bilateral neural foraminal narrowing.. C5-C6: There is no evidence of significant disc bulge or protrusion. Mild hypertrophic change is present at the C5-C6 level along with mild bilateral neural foraminal narrowing. C6-C7: There is no evidence of significant disc bulge or protrusion. Mild hypertrophic changes present at the C6-C7 level along with mild bilateral neural foraminal narrowing. C7-T1: There is no evidence of significant disc bulge or protrusion. There is no significant facet hypertrophy. IMPRESSION: Mild multilevel degenerative change as described above. No abnormal signal within the cervical cord to suggest areas of demyelination. Reviewed, Interpreted and Dictated by Declan Grubbs MD Transcribed by Anni Umana Authenticated and [facility] Assessment and Plan *Assessment and plan (1) Degenerative disc disease, cervical: Status: Acute Category: Medical Code(s): M50.30 - Other cervical disc degeneration, unspecified cervical region (2) Neck pain: Status: Acute Category: Medical Code(s): M54.2 - Cervicalgia (3) Low back pain: Status: Acute Qualifiers: Chronicity: chronic Back pain laterality: bilateral Sciatica presence: unspecified whether sciatica present Qualified Code(s): M54.50 - Low back pain, unspecified; G89.29 - Other chronic pain Category: Medical Code(s): M54.50 - Low back pain, unspecified (4) Hip pain, right: Status: Chronic Category: Medical Code(s): M25.551 - Pain in right hip (5) Right leg pain: Status: Acute Category: Medical Code(s): M79.604 - Pain in right leg Plan Patient is experiencing worsening pain in his low back with radiating symptoms into his right hip and down his entire right leg. Patient did have limited range of motion of his lumbar spine with point tenderness with palpation along the lower vertebra. Patient did also have a positive right leg raise with decreased sensation to light touch and decreased reflexes. I discussed with the patient that he may benefit from a right transforaminal epidural steroid injection. Risk and benefits were discussed with the patient and he would like to proceed forward with this plan of care. Patient is not on any blood thinners. Patient has tried and failed conservative therapy such as oral medications, heat and ice, topicals, recent physical therapy and continued at home exercising and stretching. Patient did also ask regarding pain medication more than the tramadol since it does not help. I have counseled the patient that we do not write any scheduled medications for new patients. Patient acknowledges understanding. Patient will be scheduled for a right transforaminal epidural steroid injection L4-L5 and L5-S1 under fluoroscopy. Patient has been instructed to contact the clinic with any concerns before the next appointment. Dr. Shannon has reviewed this note and agrees with this plan of care. This note was dictated using voice recognition software and make contain errors or omissions.
[2023-09-07 09:47] VITALS: BP 149/79; PULSE 89; RESP 18; O2SAT 94; BMI 25.4
== END 2023-09-07 23:59 ==
PROVIDERS: PCP Internal Medicine; Visit Provider Nurse Practitioner Family
DX: M50.30 Other cervical disc degeneration, unspecified cervical region (principal); M54.50 Low back pain, unspecified; G89.29 Other chronic pain; M25.551 Pain in right hip; M79.604 Pain in right leg
CPT/HCPCS: 99202; G0463

== ENCOUNTER 2023-09-21 14:16 | Outpatient (CLI) | payer MEDICARE, MEDICAID, SELFPAY ==
[2023-09-21 15:39] LABS: Chloride 106 mmol/L (98-107); Potassium 4.5 mmoL/L (3.5-5.1); Sodium 139 mmol/L (136-145)
[2023-09-21 15:42] LABS: Anion Gap 11.5 mEq/L (5-15); Blood Urea Nitrogen 15 mg/dl (9-20); Carbon Dioxide 26 mmol/L (22.0-30.0); Estimated Glomerular Filt Rate 75 ml/min (>60); GFR (African American) 91 ML/MIN (>60)
[2023-09-21 15:43] LABS: Calcium 9.6 mg/dl (8.4-10.2); Glucose 97 mg/dl (74-100)
== END 2023-09-21 23:59 ==
LOC: LAB 14:16
PROVIDERS: PCP Internal Medicine; Visit Provider Internal Medicine
DX: K21.9 Gastro-esophageal reflux disease without esophagitis (principal); R06.09 Other forms of dyspnea; J44.9 Chronic obstructive pulmonary disease, unspecified; F17.210 Nicotine dependence, cigarettes, uncomplicated; I25.10 Atherosclerotic heart disease of native coronary artery without angina pectoris; I10 Essential (primary) hypertension
CPT/HCPCS: 36415; 80048

== ENCOUNTER 2023-09-29 10:21 | Outpatient (CLI) | payer MEDICARE, MEDICAID, SELFPAY ==
--- NOTE | 2023-09-29 | CA_ITS ---
APPROVED REPORT Exam: Pharmacologic Technologist: Salome Leavitt, Ht: 5 ft 1 in Wt: 182 lbs BSA: 1.81 m2 HR: 81 bpm BP: 140/71 mmHg Rhythm: NSR Indications: CAD Medical History Medications: Omeprazole,,,,, Aspirin,,,,, Gabapentin,,,,, Albuterol,,,,, Tramadol,,,,, Acetaminophen,,,,, DulOXETINE,,,,, Baclofen,,,,, GaVISCON,,,,, Bisacodyl,,,,, SeNna,,,,, OxYbutinE,,,,, Cardiac Risk Factors: HTN, FHX of CAD, Smoking Stress Test Details Test: LEXISCAN HR Resting HR: 81 bpm Max Heart Rate (APMHR): 156 bpm Max HR Achieved: 110 bpm Target HR (85% APMHR): 133 bpm % of APMHR: 71 Recovery HR: 100 bpm BP Resting BP: 140/71 mmHg Max BP: 140/71 mmHg Recovery BP: 133.0/79.0 mmHg ECG Resting ECG: NSR Stress ECG: No significant ST changes Arrhythmia: None Clinical Exercise duration: 03:57 min Highest Stage Achieved: Exercise capacity: 1.0 METs Stress ECG Conclusion During lexiscan pt experinced mild head discomfort. No CP noted. No arrhythmias noted. No significant ST changes. Conclusion: Unremarkable lexiscan stress. Myoview images reported separately. Test Summary REST . . . . . . . Sitting REST 03:00 . . 81 . 140/ 71 . . Stage 1 01:00 . . 96 . . . . Stage 2 01:00 . . 109 . 132/ 74 . . Stage 3 01:00 . . 106 . 127/ 77 . . Stage 4 00:57 . . 104 . 136/ 78 . Stop exercise at 03:57 RECOVERY 01:00 . . 103 . . . . RECOVERY 02:00 . . 95 . 133/ 79 . . RECOVERY 03:00 . . 94 . 130/ 77 . . RECOVERY 03:18 . . 93 . 130/ 77 . . Electronically signed by : Marielena Lindsay MD 10/02/2023 12:22:24
--- NOTE | 2023-09-29 10:24 | CA_ITS ---
APPROVED REPORT EXAM: Comprehensive 2D, Doppler, and color-flow Echocardiogram Project Landscape Architect: Mar Ayers RT(R) Ht: 5 ft 11 in Wt: 182lbs BSA: 2.03 BP: 122/78 mmHg Indications: SOB, COPD, murmur, smoker, HTN, multiple sclerosis, Abn EKG, hx CVA 2D Dimensions LVEF (Zabala's) 47.10 % M: 52 - 72 LV Volume 112.70 mL M: 62 - 150 LV Volume Index 55.5 mL/m2 M: 34 - 74 LA Volume 17.30 mL LA Volume Index 8.52 mL/m2 (M/F) 16-34 EF AP4 49.30 % EF AP2 45.9 % EF BP 47.1 % GL Strain -16.4 % M-Mode Dimensions RVDd 2.37 cm (0.9-2.6) LA Diam 4.08 cm (1.9-4.0) LVDd 4.82 cm (3.5-5.7) LVDs 3.57 cm (3.5-5.7) IVSd 0.98 cm (0.6-1.1) PWd 0.85 cm (0.6-1.1) EF (Teich) 50.90% FS 25.90% EDV (Teich) 108.60 mL ESV (Teich) 53.30 mL LV Diastology E Decel Time 150 (160-240 msec) E/A Ratio 0.8 Aortic Valve AI PHT 415.00 ms Mitral Valve MV E Max Herbert. 87.0 (40-130 cm/s) MV A Velocity 111.0 (40-130 cm/s) E/A Ratio 0.78 MV PHT 44.0 ms Tricuspid Valve TR P. Velocity 256.00 cm/s RAP Estimate 10.00 mmHg RVSP 36.30 mmHg Left Ventricle The left ventricle is normal size. The left ventricular systolic function is low normal. There is increased LV wall thickness. There is borderline global hypokinesis present. There is mild hypokinesis of the inferior LV wall. Transmitral Doppler flow pattern suggests impaired LV relaxation. LVEF is 50%. Right Ventricle The right ventricle is normal size. The right ventricular systolic function is normal. Atria The left atrium size is normal. The right atrium size is normal. There is no Doppler evidence of interatrial shunt. Aortic Valve The aortic valve is mildly thickened. Mild aortic regurgitation. There is no aortic valvular stenosis. Mitral Valve The mitral valve leaflets are mildly thickened. No evidence of mitral valve stenosis. Mild mitral regurgitation. Tricuspid Valve The tricuspid valve leaflets are thin and pliable. Mild tricuspid regurgitation. RVSP is 25-30 mmHg. Pulmonic Valve The pulmonary valve is normal in structure. Trace pulmonic regurgitation. Great Vessels The aortic root is normal in size. The ascending aorta is not well-visualized. IVC is normal in size and collapses >50% with inspiration. Pericardium There is no pericardial effusion. Other Information Study Quality: Fair Conclusion Low normal LV systolic function (LVEF 50%). Mild hypokinesis of the inferior LV wall. Normal RV size and function. Mild AI, mild MR, mild TR In the setting of discrepancy in LVEF between nuclear stress test and TTE, note that the LVEF on TTE should be considered patient's true EF. Electronically signed by : Marielena Lindsay MD 10/03/2023 22:55:05
--- NOTE | 2023-09-29 10:54 | NM_ITS ---
APPROVED REPORT Exam: Nuclear Stress Test Indication: DYSRHYTHMIA, HTN, SMOKER, SOB Patient Location: Outpatient Stress Tech: Salome Leavitt NM Tech:Aleena Batres DEBIYung RT (R)(N)(M) Ht: 5 ft 11 in Wt: 182 lbs HR: 81 bpm BP: 140/71 mmHg BSA: 2.03 m2 TID: 1.13 BMI: 25.3 History: DYSRHYTHMIA, HTN, SMOKER, SOB Procedure: Patient received 0.4 mg of intravenous Lexiscan, resting heart rate 81 bpm, resting blood pressure 140/71 mmHg, with Lexiscan maximum heart rate achieved was 110 bpm which is % of the maximum predicted heart rate and blood pressure was 140/71 mmHg. With Lexiscan, patient denied any complaint of chest pain. Cardiac Stress and Resting SPECT Images: Cardiac Stress and Resting SPECT images were obtained using technetium 99m Myoview 29.9 mCi stress and 10.02 mCi at rest. Resting and stress imaging in supine and prone positions demonstrate a medium sized, severe, predominantly fixed perfusion defect in the inferior LV wall. There is minimal region of surrounding reversibility. Gated imaging demonstrates moderate reduction in global LV systolic function. There is severe hypokinesis of the basal inferior LV wall. LVEF is calculated at 39%. Conclusion: Medium sized, severe, predominantly fixed perfusion defect in the inferior LV wall. There is minimal region of surrounding reversibility. Gated imaging demonstrates moderate reduction in global LV systolic function. There is severe hypokinesis of the basal inferior LV wall. LVEF is calculated at 39%. Electronically signed by : Marielena Lindsay MD 10/02/2023 12:24:32
[2023-09-29] MEDS: SODIUM CHLORIDE 0.9% 10ML SYR (RAD ONLY) 10 ML IV ×2 (11:00→13:00)
[2023-09-29] MEDS: REGADENOSON 0.4MG/5ML SYRINGE 0.400000000000000022 MG IV (13:00)
[2023-09-29] MEDS: ISOTOPE MYOVIEW (PER STUDY) 1 DOSE IV (14:20)
== END 2023-09-29 23:59 ==
LOC: RT 10:23
PROVIDERS: PCP Internal Medicine; Visit Provider Internal Medicine
DX: R06.09 Other forms of dyspnea (principal); J44.9 Chronic obstructive pulmonary disease, unspecified; F17.210 Nicotine dependence, cigarettes, uncomplicated; I25.10 Atherosclerotic heart disease of native coronary artery without angina pectoris; I10 Essential (primary) hypertension
CPT/HCPCS: 78452; 93017; 93018; 93306; A9502; J2785

== ENCOUNTER 2023-10-02 09:02 | Outpatient (CLI) | payer MEDICARE, MEDICAID, SELFPAY ==
[2023-10-02] VITALS (9 sets, daily range): BP systolic 123–159; BP diastolic 63–82; PULSE 68–84; RESP 17–19; O2SAT 96–97
[2023-10-02] MEDS: diphenhydrAMINE 50MG/ML VIAL 25 MG IV (09:25)
[2023-10-02] MEDS: ACETAMINOPHEN 325MG TAB 975 MG PO (09:25)
[2023-10-02] MEDS: METHYLPREDNISOLONE SOD SUCC 125MG VIAL 125 MG IV (09:30)
[2023-10-02] MEDS: OCRELIZUMAB 600 MG in 0.9 % SODIUM CHLORIDE 500 ML 40 MG IV (09:52)
[2023-10-02] MEDS: 0.9 % SODIUM CHLORIDE 50 ML 40 ML IV (09:52)
== END 2023-10-02 14:40 | disposition home or self-care (01) ==
LOC: INF 09:03
PROVIDERS: PCP Internal Medicine; Visit Provider Specialist
DX: G35 Multiple sclerosis (principal)
CPT/HCPCS: 96413; 96415; J2350

== ENCOUNTER 2023-10-03 09:35 | Day surgery (SDC) | payer MEDICARE, MEDICAID, SELFPAY ==
[2023-10-03 09:46] VITALS: BP 135/68; PULSE 98; RESP 16; TEMP 36.8; O2SAT 96; BMI 25.4
[2023-10-03] MEDS: LIDOCAINE 1% 5ML PF VIAL 5 ML (09:54)
[2023-10-03 09:55] VITALS: BP 127/73; PULSE 90; RESP 18; O2SAT 95
[2023-10-03 09:56] VITALS: BP 127/73; PULSE 92; RESP 18; O2SAT 95
[2023-10-03 10:06] VITALS: BP 139/82; PULSE 94; RESP 16; O2SAT 96
--- NOTE | 2023-10-03 10:09 | EXP.PAIN.PRO ---
Procedure Date: 10/03/23 Time: 09:55 Anesthesiologist:: Enio Castro CRNA Complications:: None Pre-procedure Diagnosis:: Degenerative disc lumbar spine multilevels. Lumbar radiculopathy. Post-procedure Diagnosis:: Same. Indications for Procedure:: Patient is a pleasant 63-year-old male that comes our clinic today for right transforaminal L4-5, L5-S1 epidural steroid injection. Discussing with the patient regarding symptoms. He reports lumbar back pain which is constant, dull, aching. Left hip pain at times. Also, right hip and leg radicular symptoms to the foot. He rates his pain 8/10. I discussed with the patient regarding changing the specific injection order. We will go with a more generalized effective injection in intralaminar epidural steroid injection at the L4-5 level. Patient agrees. Given the fact his symptoms are multifaceted. And, we do not have specific imaging regarding the lumbar spine. I feel this would be the most reasonable approach today. Procedure Details:: Procedure: Lumbar epidural steroid injection under fluoroscopy Informed consent was obtained and the risks and benefits of the procedure were explained to the patient. The patient was taken to the procedure room and noninvasive monitors placed, including noninvasive blood pressure cuff and pulse oximeter. The back was viewed using C-arm Fluoroscopy and prepped using Chloraprep as a cleansing solution and the L4-L5 interspace was palpated. Skin and subcutaneous tissues were anesthetized using lidocaine 1.5% and a 25-gauge needle. After this, an 18-gauge Touhy epidural needle was placed into the L4-L5 interspace and advanced using fluoroscopic guidance and loss of resistance to air until the epidural space was encountered. After confirmation of needle placement in the epidural space, with dye, a solution containing normal saline, 3 mL and Depo-Medrol 80 mg were incrementally injected into the lumbar epidural space. The patient tolerated the procedure well with no complications. The patient was observed in the Pain Clinic and then discharged home neurologically intact. Plan and Disposition:: Patient was discharged without incident.
== END 2023-10-03 10:06 | disposition home or self-care (01) ==
PROVIDERS: PCP Internal Medicine; Visit Provider Nurse Anesthetist, Certified Registered
DX: M51.16 Intervertebral disc disorders with radiculopathy, lumbar region (principal)
CPT/HCPCS: 62323; J1010

== ENCOUNTER 2023-10-16 11:12 | Outpatient (POV) | payer MEDICARE, MEDICAID, SELFPAY ==
--- NOTE | 2023-10-16 11:25 | EXP.PAIN.SOA ---
[facility] Pain Management SOAP Note Subjective:: Patient is a pleasant 63-year-old male who presents today for follow-up of right transforaminal epidural steroid injection L4-L5 and L5-S1 on 10/03/2023. Patient rates his pain today a 7 out of 10. Patient states he had at least 80% relief lasting about a week and a half. He does state that he is back to his baseline. He states while the injection was working well he felt more functional and had overall improvement in his back symptoms. Patient states he was still having the leg symptoms however this has been going on since he had a hip replacement years ago. Patient does state today that his pain is all an aching, throbbing sensation with numbness and tingling down his right extremity. He does state the pain interferes with his ability to perform activities of daily living such as cooking and cleaning. Patient is interested in additional injection therapy because he did have such good relief. Patient is at [facility] and does currently use baclofen however he states he really does not notice much improvement as well as tramadol and gabapentin. His Sen has been reviewed and is appropriate. Review of Systems: General: No recent weight changes, no fever, no sleep disturbances Respiratory: No cough, no shortness of air, no recurring pulmonary infections Cardiovascular/peripheral vascular: No chest pain, no palpitations, no edema, no shortness of breath Gastrointestinal: No new onset incontinence, normal bowel movements reported Genitourinary: No new onset incontinence Musculoskeletal: Low back pain, leg pain Psychiatric: [Normal mood/affect] Neurological: [Denies weakness in extremities], [denies balance issues] Objective:: Physical Exam: General: Alert and oriented x3, no acute distress, pleasant and cooperative Lungs: Respirations even and unlabored, symmetrical chest expansion Eyes: PERRL Musculoskeletal: Flexion and extension of lumbar [spine] somewhat guarded secondary to pain, [antalgic gait noted] positive right leg raise Neurological: Speech clear, no gross sensory deficit Assessment:: Degenerative disc disease of cervical and lumbar spine with cervical and lumbar radiculopathy symptoms, right leg pain, chronic pain syndrome Plan:: Patient is experiencing worsening pain in his low back and right leg with limited range of motion. I have discussed with the patient that he may benefit from repeat injection or try a straightforward lumbar epidural steroid injection. Risk and benefits were discussed with the patient and he would like to proceed forward with this plan of care. Patient is not currently on blood thinners. Patient has tried and failed conservative therapy including continued at home exercising and stretching between injections. We will schedule the patient for a LESI L4-L5 under fluoroscopy. I have also discussed with the patient to discontinue his baclofen and that we can try and add methocarbamol 750 mg 3 times daily. Patient agrees with this plan of care. Patient has been instructed to contact the clinic with any concerns before the next appointment. Dr. Shannon has reviewed this note and agrees with this plan of care. This note was dictated using voice recognition software and make contain errors or omissions. Patient has been instructed to contact the clinic with any concerns before the next appointment. Dr. Shannon has reviewed this note and agrees with this plan of care. This note was dictated using voice recognition software and make contain errors or omissions. [facility] Disclaimer: The information contained in this section may have been updated after the patient was seen, as this information can be updated by other users. Medical History Cognitive communication deficit Unspecified abnormalities of gait and mobility Depression Smoking greater than 30 pack years Multiple pulmonary nodules Tobacco abuse Dyspnea on exertion Bilateral impacted cerumen CVA, old, dysarthria Mild aortic regurgitation Heart murmur COPD (chronic obstructive pulmonary disease) Foraminal stenosis of cervical region Cervical spondylosis Hip osteoarthritis DDD (degenerative disc disease), thoracic Hip pain, right Multiple sclerosis Awaiting approval for Ocrevus IV infusion. Chronic back pain Surgical History History of total right hip arthroplasty Family History Other Asthma Cancer Hypertension Stroke Thyroid disorder Social History Smoking Status: Current every day smoker tobacco type: e-cigarettes alcohol intake: former substance use type: former substance user and marijuana current occupational status: disabled Travel in the last 8 weeks: None household members: caregiver housing: house marital status: current occupational exposures/hazards: No caffeine: Yes
[2023-10-16 11:31] VITALS: BP 133/72; PULSE 93; RESP 18; O2SAT 95; BMI 25.7
== END 2023-10-16 23:59 | disposition home or self-care (01) ==
LOC: SC.PAIN 11:13
PROVIDERS: PCP Internal Medicine; Visit Provider Nurse Practitioner Family
DX: M50.10 Cervical disc disorder with radiculopathy, unspecified cervical region (principal); M51.16 Intervertebral disc disorders with radiculopathy, lumbar region; M79.604 Pain in right leg; G89.4 Chronic pain syndrome
CPT/HCPCS: 99212; G0463

== ENCOUNTER 2023-11-01 09:24 | Outpatient (CLI) | payer MEDICARE, MEDICAID, SELFPAY ==
--- NOTE | 2023-11-01 09:25 | MR_ITS ---
FINAL REPORT CLINICAL HISTORY: Interval FU, on ocrevus, has MS 17 ml prohance COMPARISON: 11/28/2022 FINDINGS: Multiplanar MR imaging of the brain was performed without and with contrast. There is atrophy in the body of the corpus callosum. There is moderate cortical atrophy present. There is extensive abnormal signal in the periventricular white matter, stable, consistent with the patient's known history of a demyelinating disease. There is no evidence of intracranial hemorrhage or mass. No abnormal extra-axial fluid collection is seen. The ventricular size is within normal limits. There is no evidence of shift of the midline structures. The posterior fossa and brainstem have an unremarkable appearance. No area of abnormal restricted diffusion is identified. No abnormal contrast enhancement is seen. Normal major vessel vascular flow voids are noted. IMPRESSION: Extensive abnormal signal in the periventricular white matter, stable, consistent with the patient's known history of a demyelinating process. No enhancement is noted, nor is there any restricted diffusion. Reviewed, Interpreted and Dictated by Declan Grubbs MD Transcribed by Anni Umana Authenticated and [facility]
[2023-11-01] MEDS: SODIUM CHLORIDE 0.9% 10ML SYR (RAD ONLY) 10 ML IV (10:17)
[2023-11-01] MEDS: GADOTERIDOL INJ 17ML SYRINGE 17 ML IV (10:18)
== END 2023-11-01 23:59 | disposition home or self-care (01) ==
LOC: RAD 09:25
PROVIDERS: PCP Internal Medicine; Visit Provider Specialist
DX: G35 Multiple sclerosis; G37.89 Other specified demyelinating diseases of central nervous system
CPT/HCPCS: 70553; A9576

== ENCOUNTER 2023-11-07 11:10 | Day surgery (SDC) | payer MEDICARE, MEDICAID, SELFPAY ==
[2023-11-07 11:27] VITALS: BP 135/81; PULSE 65; RESP 18; TEMP 36.4; O2SAT 97; BMI 25.5
[2023-11-07 11:48] VITALS: BP 132/68; PULSE 70; RESP 18; O2SAT 98
[2023-11-07] MEDS: methylPREDNISolone ACETATE 80MG/ML VIAL 80 MG (12:00)
--- NOTE | 2023-11-07 12:00 | EXP.PAIN.PRO ---
Procedure Date: 11/07/23 Time: 11:30 Anesthesiologist:: Enio Castro CRNA Complications:: None Pre-procedure Diagnosis:: Degenerative disc lumbar spine multilevels. Lumbar radiculopathy. Post-procedure Diagnosis:: Same. Indications for Procedure:: Patient is a very pleasant 63-year-old male comes our clinic today for lumbar epidural steroid injection L4-5 level. Patient describes low back pain as constant, dull, aching. Patient also reports bilateral hip and leg radicular symptoms. He rates his pain 6/10. Procedure Details:: Procedure: Lumbar epidural steroid injection under fluoroscopy Informed consent was obtained and the risks and benefits of the procedure were explained to the patient. The patient was taken to the procedure room and noninvasive monitors placed, including noninvasive blood pressure cuff and pulse oximeter. The back was viewed using C-arm Fluoroscopy and prepped using Chloraprep as a cleansing solution and the L4-L5 interspace was palpated. Skin and subcutaneous tissues were anesthetized using lidocaine 1.5% and a 25-gauge needle. After this, an 18-gauge Touhy epidural needle was placed into the L4-L5 interspace and advanced using fluoroscopic guidance and loss of resistance to air until the epidural space was encountered. After confirmation of needle placement in the epidural space, with dye, a solution containing normal saline, 3 mL and Depo-Medrol 80 mg were incrementally injected into the lumbar epidural space. The patient tolerated the procedure well with no complications. The patient was observed in the Pain Clinic and then discharged home neurologically intact. Plan and Disposition:: Patient was discharged without incident.
[2023-11-07 12:03] VITALS: BP 133/72; PULSE 71; RESP 18; O2SAT 94
[2023-11-07 12:14] VITALS: BP 133/72; PULSE 71; RESP 18; O2SAT 94
== END 2023-11-07 11:50 | disposition home or self-care (01) ==
LOC: SC.PAINP 11:11
PROVIDERS: PCP Internal Medicine; Visit Provider Nurse Anesthetist, Certified Registered
DX: M51.16 Intervertebral disc disorders with radiculopathy, lumbar region (principal)
CPT/HCPCS: 62323

== ENCOUNTER 2023-11-27 08:38 | Outpatient (POV) | payer MEDICARE, MEDICAID, SELFPAY ==
[2023-11-27 08:51] VITALS: BP 114/67; PULSE 85; RESP 18; O2SAT 94; BMI 25.2
--- NOTE | 2023-11-27 09:00 | A.OFFVIS_ITS ---
[facility] Pain Management SOAP Note Subjective:: Patient is a pleasant 63-year-old male who presents today for follow-up of lumbar epidural steroid injection L4-L5 on 11/07/2023. Today he rates his pain an 8 out of 10. Patient denies any new trauma or injury. He does state that he had at least 60% improvement following this injection and it is still helping somewhat. Patient states that his right leg symptoms are much better and have not returned. He states he can get around easier with overall decreased pain and feels more functional. Patient does state that he still has pain all in his back. He describes it as an aching, throbbing sensation. Patient is still managed with tramadol, gabapentin and methocarbamol 750 mg 3 times a day at [facility]. He denies any side effects from this medication. He does state that he feels like the last muscle relaxer is doing much better and even seems to work better than the tramadol. Patient states he feels like he does not notice any improvement with the tramadol. His Sen has been reviewed and is appropriate. Review of Systems: General: No recent weight changes, no fever, no sleep disturbances Respiratory: No cough, no shortness of air, no recurring pulmonary infections Cardiovascular/peripheral vascular: No chest pain, no palpitations, no edema, no shortness of breath Gastrointestinal: No new onset incontinence, normal bowel movements reported Genitourinary: No new onset incontinence Musculoskeletal: Low back pain Psychiatric: [Normal mood/affect] Neurological: [Denies weakness in extremities], [denies balance issues] Objective:: Physical Exam: General: Alert and oriented x3, no acute distress, pleasant and cooperative Lungs: Respirations even and unlabored, symmetrical chest expansion Eyes: PERRL Musculoskeletal: Flexion and extension of lumbar [spine] somewhat guarded secondary to pain, [antalgic gait noted] Neurological: Speech clear, no gross sensory deficit Assessment:: Degenerative disc disease of cervical and lumbar spine with cervical and lumbar radiculopathy symptoms, right leg pain, chronic pain syndrome Plan:: Patient has had significant improvement following his lumbar epidural. I have discussed with patient that we will add lidocaine patches 5% to be applied every 12 hours for his overall back pain. Patient would like to proceed forward with this plan of care. Patient will return to clinic in 1 month for reevaluation of symptoms and plan of care. Patient has been instructed to contact the clinic with any concerns before the next appointment. Dr. Shannon has reviewed this note and agrees with this plan of care. This note was dictated using voice recognition software and make contain errors or omissions. [facility] Disclaimer: The information contained in this section may have been updated after the patient was seen, as this information can be updated by other users. Medical History Cognitive communication deficit Unspecified abnormalities of gait and mobility Depression Smoking greater than 30 pack years Multiple pulmonary nodules Tobacco abuse Dyspnea on exertion Bilateral impacted cerumen CVA, old, dysarthria Mild aortic regurgitation Heart murmur COPD (chronic obstructive pulmonary disease) Foraminal stenosis of cervical region Cervical spondylosis Hip osteoarthritis DDD (degenerative disc disease), thoracic Hip pain, right Multiple sclerosis Awaiting approval for Ocrevus IV infusion. Chronic back pain Surgical History History of total right hip arthroplasty Family History Other Asthma Cancer Hypertension Stroke Thyroid disorder Social History Smoking Status: Current every day smoker tobacco type: e-cigarettes alcohol intake: former substance use type: former substance user and marijuana current occupational status: disabled Travel in the last 8 weeks: None household members: caregiver housing: house marital status: current occupational exposures/hazards: No caffeine: Yes
== END 2023-11-27 23:59 | disposition home or self-care (01) ==
LOC: SC.PAIN 08:38
PROVIDERS: PCP Nurse Practitioner Family; Visit Provider Nurse Practitioner Family
DX: M50.10 Cervical disc disorder with radiculopathy, unspecified cervical region (principal); M51.16 Intervertebral disc disorders with radiculopathy, lumbar region; M79.604 Pain in right leg; G89.4 Chronic pain syndrome
CPT/HCPCS: 99212; G0463

== ENCOUNTER 2023-12-27 09:02 | Outpatient (POV) | payer MEDICARE, MEDICAID, SELFPAY ==
[2023-12-27 09:20] VITALS: BP 119/69; PULSE 83; RESP 18; O2SAT 95; BMI 26.4
--- NOTE | 2023-12-27 09:25 | A.OFFVIS_ITS ---
[facility] Disclaimer: The information contained in this section may have been updated after the patient was seen, as this information can be updated by other users. Medical History (Updated 12/27/23 @ 09:28 by Veronique Neves APRN) Pneumonia Cognitive communication deficit Unspecified abnormalities of gait and mobility Depression Smoking greater than 30 pack years Multiple pulmonary nodules Tobacco abuse Dyspnea on exertion Bilateral impacted cerumen CVA, old, dysarthria Mild aortic regurgitation Heart murmur COPD (chronic obstructive pulmonary disease) Foraminal stenosis of cervical region Cervical spondylosis Hip osteoarthritis DDD (degenerative disc disease), thoracic Hip pain, right Multiple sclerosis Chronic back pain Surgical History History of total right hip arthroplasty Family History Other Asthma Cancer Hypertension Stroke Thyroid disorder Social History Smoking Status: Current every day smoker tobacco type: e-cigarettes alcohol intake: former substance use type: former substance user and marijuana current occupational status: disabled Travel in the last 8 weeks: None household members: caregiver housing: house marital status: current occupational exposures/hazards: No caffeine: Yes PM Subjective & Objective Subjective Subjective:: Patient is a pleasant 63-year-old male who presents today for 1 month follow-up. Today he rates his pain a 7 out of 10. Patient denies any new trauma or injury. He does state that about a month ago he was diagnosed with pneumonia however feels like that is resolved. Patient does state his pain today is more related into his low back and hip area. Patient does describe it as an aching, throbbing sensation that is fairly constant and does interfere with his ability to perform activities of daily living. Patient did previously have a lumbar epidural L4-L5 back in November 06 that did provide 60% relief however he feels like this is worn off or has other issues going on. Patient is interested in anything we can help try to get overall improvement. At his last visit he was tried on lidocaine patches however he feels like that really did not seem to do a whole lot. Patient is at [facility] and is managed with tramadol, gabapentin and methocarbamol. He denies any side effects from this medication however feels like it really does not do much. He states he is even try the addition of Tylenol but makes no change. His Sen has been reviewed and is appropriate. Review of Systems: General: No recent weight changes, no fever, no sleep disturbances Respiratory: No cough, no shortness of air, no recurring pulmonary infections Cardiovascular/peripheral vascular: No chest pain, no palpitations, no edema, no shortness of breath Gastrointestinal: No new onset incontinence, normal bowel movements reported Genitourinary: No new onset incontinence Musculoskeletal: Low back pain, bilateral hip pain Psychiatric: [Normal mood/affect] Neurological: [Denies weakness in extremities], [denies balance issues] Pain at rest (0-10 scale): 7 Objective Objective:: Physical Exam: General: Alert and oriented x3, no acute distress, pleasant and cooperative Lungs: Respirations even and unlabored, symmetrical chest expansion Eyes: PERRL Musculoskeletal: Flexion and extension of lumbar [spine] somewhat guarded secondary to pain, [antalgic gait noted] point tenderness along bilateral SIs with positive bilateral Claudia's, Minna's, Gaenslen's, compression and distraction exam Neurological: Speech clear, no gross sensory deficit Has patient had previous pain injection?: No Conservative treatment options previously tried: Home exercise plan Length of treatment: Longer than 6 weeks and Prescription medications Length of treatment: Longer than 6 weeks Meds Home Medications and Allergies Home Medications Medication Instructions Recorded Confirmed Type aspirin 81 mg tablet,delayed 81 mg PO DAILY heart health 07/23/21 12/22/23 History release senna-fennel tablet 1 tab PO DAILY 03/09/22 12/22/23 History albuterol sulfate 90 mcg/actuation 1 inh inhalation QID PRN shortness 06/07/22 12/22/23 Rx aerosol inhaler of breath or wheezing #8.5 grams omeprazole 20 mg capsule,delayed 20 mg PO DAILY 06/07/22 12/22/23 History release acetaminophen 500 mg oral powder 500 mg PO Q6H PRN Pain 11/17/22 12/22/23 History packet (Tylenol Extra Strength) bisacodyl 5 mg tablet 10 mg PO DAILY PRN BOWELS 11/17/22 12/22/23 History oxybutynin chloride 10 mg 10 mg PO DAILY 11/17/22 12/22/23 History tablet,extended release 24 hr duloxetine 60 mg capsule,delayed 60 mg PO DAILY 04/24/23 12/22/23 History release cyanocobalamin (vitamin B-12) 1,000 mcg SQ QMONTH 05/17/23 12/22/23 History 1,000 mcg/mL injection kit gabapentin 600 mg tablet 600 mg PO TID NEUROPATHY 30 days 09/01/23 12/22/23 Rx #90 tabs atorvastatin 80 mg tablet (Lipitor) 80 mg PO DAILY #30 tabs 09/21/23 12/22/23 Rx tiotropium 2.5 mcg-olodaterol 2.5 2 puff inhalation DAILY 10/18/23 12/22/23 History mcg/actuation mist for inhalation (Stiolto Respimat) methocarbamol 750 mg tablet 750 mg PO TID 11/15/23 12/22/23 History metoprolol succinate 25 mg 25 mg PO DAILY 11/15/23 12/22/23 History tablet,extended release 24 hr (Toprol XL) tramadol 50 mg tablet 50 mg PO TID #90 tabs 12/26/23 Rx New Prescriptions to Start Prescriptions: Allergies Allergy/AdvReac Type Severity Reaction Status Date / Time No Known Allergies Allergy Verified 12/22/23 19:42 Assessment and Plan *Assessment and plan (1) Low back pain: Status: Acute Qualifiers: Chronicity: chronic Back pain laterality: bilateral Sciatica presence: unspecified whether sciatica present Qualified Code(s): M54.50 - Low back pain, unspecified; G89.29 - Other chronic pain Category: Medical Code(s): M54.50 - Low back pain, unspecified (2) Bilateral sacroiliitis: Status: Acute Category: Medical Code(s): M46.1 - Sacroiliitis, not elsewhere classified Plan Patient is experiencing worsening pain in his low back and hips with limited range of motion. Patient did have point tenderness along his bilateral SIs with positive bilateral Claudia's, Minna's, Gaenslen's, compression and distraction exam. I have discussed with the patient that he may benefit from SI injections. Risk and benefits were discussed with the patient and he would like to proceed forward with this plan of care. Patient does try and stay active there in the assisted however he is very limited. Patient does have significant health history including COPD and dyspnea that limits his ability to do current physical therapy. Patient has continued to do home exercise and stretching between injections with minimal relief. Patient will be scheduled for bilateral SI injections under fluoroscopy. Patient has been instructed to contact the clinic with any concerns before the next appointment. Dr. Shannon has reviewed this note and agrees with this plan of care. This note was dictated using voice recognition software and make contain errors or omissions.
== END 2023-12-27 23:59 | disposition home or self-care (01) ==
LOC: SC.PAIN 09:03
PROVIDERS: Visit Provider Nurse Practitioner Family
DX: G89.29 Other chronic pain; M46.1 Sacroiliitis, not elsewhere classified
CPT/HCPCS: 99212; G0463

== ENCOUNTER 2024-01-09 09:32 | Day surgery (SDC) | payer MEDICARE, MEDICAID, SELFPAY ==
[2024-01-09 09:55] VITALS: BP 129/69; PULSE 81; RESP 18; TEMP 36.6; O2SAT 95; BMI 25.4
[2024-01-09] MEDS: LIDOCAINE 1% 5ML PF VIAL 5 ML (09:56)
[2024-01-09] MEDS: BUPIVACAINE 0.25% 10ML INJ 25 MG IJ (09:56)
[2024-01-09] MEDS: methylPREDNISolone ACETATE 80MG/ML VIAL 80 MG (09:56)
[2024-01-09 09:57] VITALS: BP 129/70; PULSE 72; RESP 18; O2SAT 94
--- NOTE | 2024-01-09 09:59 | P.PCN_ITS ---
Procedure Date: 01/09/24 Time: 09:50 Anesthesiologist:: Enio Castro CRNA Complications:: None Pre-procedure Diagnosis:: Bilateral sacroiliitis Post-procedure Diagnosis:: Same Indications for Procedure:: Patient is a pleasant 63-year-old male comes our clinic today for bilateral sacroiliac joint injection of cortisone. He is responded very well to this injection in the past. His main complaint is bilateral posterior hip pain. Low lumbar back pain off the midline bilaterally. He rates his pain 7/10. Procedure Details:: Procedure: Bilateral sacroiliac joint injections under fluoroscopy Informed consent was obtained and the risks and benefits of the procedure were explained to the patient.~ The patient was taken to the procedure room and noninvasive monitors were placed including a noninvasive blood pressure cuff and pulse oximeter.~ The patient was placed prone on the procedure table. Both hips were cleansed using Betadine as a cleansing solution. C-arm fluoroscopy was used to view the right sacroiliac joint.~ The skin and subcutaneous tissues were anesthetized using lidocaine 1.5% and a 25-gauge needle.~ After this, a 22-gauge spinal needle was inserted under fluoroscopic guidance into the inferior aspect of the right sacroiliac joint.~ Omnipaque dye was injected and good spread was seen throughout the joint.~ After this, approximately 5 mL of bupivacaine, 0.25% and Depo-Medrol, 40 mg was incrementally injected into the right sacroiliac joint. We then moved to the left sacroiliac joint.~ The skin and subcutaneous tissues were anesthetized using lidocaine 1.5% and a 25-gauge needle.~ After this, a 22- gauge spinal needle was inserted under fluoroscopic guidance into the inferior aspect of the left sacroiliac joint.~ Omnipaque dye was injected and good spread was seen throughout the joint. After this, approximately 5 mL of bupivacaine, 0.25% and Depo-Medrol, 40 mg was incrementally injected into the left sacroiliac joint.~ The patient tolerated the procedure well with no complications. The patient was observed in the Pain Clinic and then was discharged home neurologically intact. Plan and Disposition:: Patient was discharged without incident.
[2024-01-09 10:01] VITALS: BP 131/74; PULSE 74; RESP 18; O2SAT 96
[2024-01-09 10:03] VITALS: BP 129/70; PULSE 72; RESP 18; O2SAT 94
== END 2024-01-09 10:01 | disposition home or self-care (01) ==
PROVIDERS: PCP Family Medicine; Visit Provider Nurse Anesthetist, Certified Registered
DX: M46.1 Sacroiliitis, not elsewhere classified (principal)
CPT/HCPCS: 27096; G0260; J1010

== ENCOUNTER 2024-01-31 09:40 | Outpatient (POV) | payer MEDICARE, MEDICAID, SELFPAY ==
[2024-01-31 10:12] VITALS: BP 127/85; PULSE 75; RESP 16; O2SAT 75; BMI 25.7
--- NOTE | 2024-01-31 10:18 | EXP.PAIN.SOA ---
[facility] Disclaimer: The information contained in this section may have been updated after the patient was seen, as this information can be updated by other users. Medical History (Updated 01/31/24 @ 10:27 by Veronique Neves APRN) Hyperlipidemia LDL goal <55 Pneumonia Cognitive communication deficit Unspecified abnormalities of gait and mobility Depression Smoking greater than 30 pack years Multiple pulmonary nodules Tobacco abuse Dyspnea on exertion Bilateral impacted cerumen CVA, old, dysarthria Mild aortic regurgitation Heart murmur COPD (chronic obstructive pulmonary disease) Foraminal stenosis of cervical region Cervical spondylosis Hip osteoarthritis DDD (degenerative disc disease), thoracic Hip pain, right Multiple sclerosis Chronic back pain Surgical History History of total right hip arthroplasty Family History Other Asthma Cancer Hypertension Stroke Thyroid disorder Social History Smoking Status: Current every day smoker tobacco type: e-cigarettes alcohol intake: former substance use type: former substance user and marijuana current occupational status: disabled Travel in the last 8 weeks: None household members: caregiver housing: house marital status: current occupational exposures/hazards: No caffeine: Yes PM Subjective & Objective Subjective Subjective:: Patient is a pleasant 63-year-old male who presents today for follow-up of bilateral SI injections. Today he rates his pain a 7 out of 10. Patient denies any new trauma or injury. He does state that the injections did provide 75 to 80% relief however only lasted 2 days. Patient does state that he is starting to experience more pain in his low back area with radiating symptoms down his entire right leg. Patient does state that he has been also walking more at the intermediate and feels like he has built a little bit more stamina however does seem like the pain has worsened due to this. He does state the pain interferes with his ability perform activities of daily living such as cooking and cleaning. Patient has had additional injections in the past such as epidurals that did provide 60% relief and lasted longer than these current injections. Patient does feel like those prior injections did seem to work better than this 1. He is interested in additional injection therapy. Patient is still managed with tramadol, gabapentin and methocarbamol 750 mg 3 times a day at [facility]. He denies any side effects from this medication. He does state that he feels like the last muscle relaxer is doing much better and even seems to work better than the tramadol. Patient states he feels like he does not notice any improvement with the tramadol. His Sen has been reviewed and is appropriate. Review of Systems: General: No recent weight changes, no fever, no sleep disturbances Respiratory: No cough, no shortness of air, no recurring pulmonary infections Cardiovascular/peripheral vascular: No chest pain, no palpitations, no edema, no shortness of breath Gastrointestinal: No new onset incontinence, normal bowel movements reported Genitourinary: No new onset incontinence Musculoskeletal: Low back pain, right leg pain Psychiatric: [Normal mood/affect] Neurological: [Denies weakness in extremities], [denies balance issues] Pain at rest (0-10 scale): 7 Objective Objective:: Physical Exam: General: Alert and oriented x3, no acute distress, pleasant and cooperative Lungs: Respirations even and unlabored, symmetrical chest expansion Eyes: PERRL Musculoskeletal: Flexion and extension of lumbar [spine] somewhat guarded secondary to pain, [antalgic gait noted] Neurological: Speech clear, no gross sensory deficit Has patient had previous pain injection?: Yes Percent improvement in pain since last injection: 75 to 80% Conservative treatment options previously tried: Home exercise plan Length of treatment: Longer than 6 weeks and Prescription medications Length of treatment: Longer than 6 weeks Meds Home Medications and Allergies Home Medications ?Medication ?Instructions ?Recorded ?Confirmed ?Type aspirin 81 mg tablet,delayed 81 mg PO DAILY heart health 07/23/21 01/24/24 History release senna-fennel tablet 1 tab PO DAILY 03/09/22 01/24/24 History albuterol sulfate 90 mcg/actuation 1 inh inhalation QID PRN shortness 06/07/22 01/24/24 Rx aerosol inhaler of breath or wheezing #8.5 grams omeprazole 20 mg capsule,delayed 20 mg PO DAILY 06/07/22 01/24/24 History release acetaminophen 500 mg oral powder 500 mg PO Q6H PRN Pain 11/17/22 01/24/24 History packet (Tylenol Extra Strength) bisacodyl 5 mg tablet 10 mg PO DAILY PRN BOWELS 11/17/22 01/24/24 History oxybutynin chloride 10 mg 10 mg PO DAILY 11/17/22 01/24/24 History tablet,extended release 24 hr duloxetine 60 mg capsule,delayed 60 mg PO DAILY 04/24/23 01/24/24 History release cyanocobalamin (vitamin B-12) 1,000 mcg SQ QMONTH 05/17/23 01/24/24 History 1,000 mcg/mL injection kit gabapentin 600 mg tablet 600 mg PO TID NEUROPATHY 30 days 09/01/23 01/24/24 Rx #90 tabs atorvastatin 80 mg tablet (Lipitor) 80 mg PO DAILY #30 tabs 09/21/23 01/24/24 Rx tiotropium 2.5 mcg-olodaterol 2.5 2 puff inhalation DAILY 10/18/23 01/24/24 History mcg/actuation mist for inhalation (Stiolto Respimat) metoprolol succinate 25 mg 25 mg PO DAILY 11/15/23 01/24/24 History tablet,extended release 24 hr (Toprol XL) tramadol 50 mg tablet 50 mg PO TID #90 tabs 12/26/23 01/24/24 Rx aluminum hydrox-magnesium carb 95 30 ml PO QPCHS 01/18/24 01/24/24 History mg-358 mg/15 mL oral suspension (Acid Gone Antacid) lidocaine 5 % topical patch 1 patch topical DAILY 01/18/24 01/24/24 History methocarbamol 750 mg tablet 750 mg PO TID 01/18/24 01/24/24 History New Prescriptions to Start Prescriptions: Allergies Allergy/AdvReac Type Severity Reaction Status Date / Time No Known Allergies Allergy Verified 01/24/24 14:05 Assessment and Plan *Assessment and plan (1) Low back pain: Status: Acute Qualifiers: Chronicity: chronic Back pain laterality: bilateral Sciatica presence: unspecified whether sciatica present Qualified Code(s): M54.50 - Low back pain, unspecified; G89.29 - Other chronic pain Category: Medical Code(s): M54.50 - Low back pain, unspecified (2) Right leg pain: Status: Acute Category: Medical Code(s): M79.604 - Pain in right leg (3) Lumbar radiculopathy: Status: Acute Category: Medical Code(s): M54.16 - Radiculopathy, lumbar region Plan Patient is experiencing worsening pain throughout his low back with radiating numbness and tingling down into his right lower extremity. Patient did have limited range of motion of his lumbar spine during today's visit. I did review over with him the risk and benefits of repeat lumbar epidural steroid injection. Patient has had his last epidural back in October that did provide 60% relief and did last closer to 2 months. Patient does state that he would like to proceed forward with this option. Patient is not on any blood thinners. Patient will be scheduled for a repeat lumbar epidural steroid injection L4-L5 under fluoroscopy. Patient has continued conservative therapy including continued at home stretching exercise for longer than 6 weeks and between injections. Patient has been instructed to contact the clinic with any concerns before the next appointment. Dr. Shannon has reviewed this note and agrees with this plan of care. This note was dictated using voice recognition software and make contain errors or omissions. All injections are used with Lidocaine or Bupivacaine and Depo Medrol.
== END 2024-01-31 23:59 | disposition home or self-care (01) ==
LOC: SC.PAIN 09:41
PROVIDERS: PCP Family Medicine; Visit Provider Nurse Practitioner Family
DX: M54.50 Low back pain, unspecified (principal); G89.29 Other chronic pain; M79.604 Pain in right leg; M54.16 Radiculopathy, lumbar region; U07.0 Vaping-related disorder; Z73.89 Other problems related to life management difficulty; Z79.899 Other long term (current) drug therapy; Z96.643 Presence of artificial hip joint, bilateral
CPT/HCPCS: 99212; G0463

== ENCOUNTER 2024-02-13 14:04 | Day surgery (SDC) | payer MEDICARE, MEDICAID, SELFPAY ==
[2024-02-13 14:18] VITALS: BP 105/71; PULSE 95; RESP 16; TEMP 36.7; O2SAT 94; BMI 25.4
--- NOTE | 2024-02-13 14:37 | EXP.PAIN.PRO ---
Procedure Date: 02/13/24 Time: 14:40 Anesthesiologist:: Enio Castro CRNA Complications:: None Pre-procedure Diagnosis:: Degenerative disc lumbar spine multilevels. Lumbar radiculopathy. Post-procedure Diagnosis:: Same. Indications for Procedure:: Patient is a pleasant 63-year-old male who comes our clinic today for repeat lumbar epidural steroid injection at the L4-5 level. After further review the L4-5 level was not accessible. The injection went will be given at the L5-S1 level. Patient describes low back pain as constant, dull, aching. He also reports bilateral hip and leg radicular symptoms. Difficulty with ambulation. He reports moderate improvement with the symptoms with his initial injection. Procedure Details:: Procedure: Lumbar epidural steroid injection under fluoroscopy Informed consent was obtained and the risks and benefits of the procedure were explained to the patient. The patient was taken to the procedure room and noninvasive monitors placed, including noninvasive blood pressure cuff and pulse oximeter. The back was viewed using C-arm Fluoroscopy and prepped using Chloraprep as a cleansing solution and the L5-S1 interspace was palpated. Skin and subcutaneous tissues were anesthetized using lidocaine 1.5% and a 25-gauge needle. After this, an 18-gauge Touhy epidural needle was placed into the L5-S1 interspace and advanced using fluoroscopic guidance and loss of resistance to air until the epidural space was encountered. After confirmation of needle placement in the epidural space, with dye, a solution containing normal saline, 3 mL and Depo-Medrol 80 mg were incrementally injected into the lumbar epidural space. The patient tolerated the procedure well with no complications. The patient was observed in the Pain Clinic and then discharged home neurologically intact. Plan and Disposition:: Patient was discharged without incident.
[2024-02-13 14:38] VITALS: BP 118/63; PULSE 84; RESP 16; O2SAT 95
[2024-02-13] MEDS: methylPREDNISolone ACETATE 80MG/ML VIAL 80 MG (14:39)
[2024-02-13 14:40] VITALS: BP 100/63; PULSE 96; RESP 18
[2024-02-13 14:43] VITALS: BP 100/63; PULSE 96; RESP 18; O2SAT 97
== END 2024-02-13 14:40 | disposition home or self-care (01) ==
PROVIDERS: PCP Family Medicine; Visit Provider Nurse Anesthetist, Certified Registered
DX: M51.16 Intervertebral disc disorders with radiculopathy, lumbar region (principal)
CPT/HCPCS: 62323; J1010

== ENCOUNTER 2024-03-07 10:39 | Outpatient (POV) | payer MEDICARE, MEDICAID, SELFPAY ==
[2024-03-07 10:57] VITALS: BP 143/80; PULSE 85; RESP 16; O2SAT 96; BMI 26.2
--- NOTE | 2024-03-07 11:28 | A.OFFVIS_ITS ---
[facility] Disclaimer: The information contained in this section may have been updated after the patient was seen, as this information can be updated by other users. Medical History Hyperlipidemia LDL goal <55 Pneumonia November 2023-resolved Cognitive communication deficit Unspecified abnormalities of gait and mobility Depression Smoking greater than 30 pack years Multiple pulmonary nodules Tobacco abuse Dyspnea on exertion Bilateral impacted cerumen CVA, old, dysarthria Mild aortic regurgitation Heart murmur COPD (chronic obstructive pulmonary disease) Foraminal stenosis of cervical region Cervical spondylosis Hip osteoarthritis DDD (degenerative disc disease), thoracic Hip pain, right Multiple sclerosis 300 mg IV currently stable on Ocrevus infusion every 6 months. Plan is to continue current dose, (clinically stable and brain MRI did not show evidence of new lesions) Chronic back pain Surgical History History of total right hip arthroplasty Family History Other Asthma Cancer Hypertension Stroke Thyroid disorder Social History Smoking Status: Current every day smoker tobacco type: e-cigarettes alcohol intake: former substance use type: former substance user and marijuana current occupational status: other Travel in the last 8 weeks: None household members: caregiver housing: house marital status: current occupational exposures/hazards: No caffeine: Yes PM Subjective & Objective Subjective Subjective:: Patient is a pleasant 63-year-old male who presents today for follow-up of lumbar epidural steroid injection L5-S1 on 02/13/2024. Today he rates his pain an 8 out of 10. He denies any new trauma or injury. He does state that he had at least 50% improvement following this injection however it only lasted a couple of days. Patient states he is back to his baseline with chronic pain throughout his low back and radiating down into his bilateral lower extremities with numbness and tingling. He states the pain is constant and interferes with his ability perform activities of daily living. Patient has had SI injections in the past that did provide significant improvement as well however they were very temporary. Patient is managed with gabapentin 600 mg 3 times a day along with tramadol 50 mg 3 times a day. Patient is a resident at a skilled nursing here locally. He denies any side effects from this medication. His Sen is reviewed and is appropriate. Review of Systems: General: No recent weight changes, no fever, no sleep disturbances Respiratory: No cough, no shortness of air, no recurring pulmonary infections Cardiovascular/peripheral vascular: No chest pain, no palpitations, no edema, no shortness of breath Gastrointestinal: No new onset incontinence, normal bowel movements reported Genitourinary: No new onset incontinence Musculoskeletal: Low back pain, leg pain Psychiatric: [Normal mood/affect] Neurological: [Denies weakness in extremities], [denies balance issues] Pain at rest (0-10 scale): 8 Objective Objective:: Physical Exam: General: Alert and oriented x3, no acute distress, pleasant and cooperative Lungs: Respirations even and unlabored, symmetrical chest expansion Eyes: PERRL Musculoskeletal: Flexion and extension of lumbar [spine] somewhat guarded secondary to pain, [antalgic gait noted] Neurological: Speech clear, no gross sensory deficit Has patient had previous pain injection?: Yes Percent improvement in pain since last injection: 50% Conservative treatment options previously tried: Home exercise plan Length of treatment: Longer than 6 weeks Meds Home Medications and Allergies Home Medications ?Medication ?Instructions ?Recorded ?Confirmed ?Type aspirin 81 mg tablet,delayed 81 mg PO DAILY heart health 07/23/21 03/07/24 History release senna-fennel tablet 1 tab PO DAILY 03/09/22 03/07/24 History albuterol sulfate 90 mcg/actuation 1 inh inhalation QID PRN shortness 06/07/22 03/07/24 Rx aerosol inhaler of breath or wheezing #8.5 grams omeprazole 20 mg capsule,delayed 20 mg PO DAILY 06/07/22 03/07/24 History release acetaminophen 500 mg oral powder 500 mg PO Q6H PRN Pain 11/17/22 03/07/24 History packet (Tylenol Extra Strength) bisacodyl 5 mg tablet 10 mg PO DAILY PRN BOWELS 11/17/22 03/07/24 History oxybutynin chloride 10 mg 10 mg PO DAILY 11/17/22 03/07/24 History tablet,extended release 24 hr cyanocobalamin (vitamin B-12) 1,000 mcg SQ QMONTH 05/17/23 03/07/24 History 1,000 mcg/mL injection kit atorvastatin 80 mg tablet (Lipitor) 80 mg PO DAILY #30 tabs 09/21/23 03/07/24 Rx tiotropium 2.5 mcg-olodaterol 2.5 2 puff inhalation DAILY 10/18/23 03/07/24 History mcg/actuation mist for inhalation (Stiolto Respimat) metoprolol succinate 25 mg 25 mg PO DAILY 11/15/23 03/07/24 History tablet,extended release 24 hr (Toprol XL) tramadol 50 mg tablet 50 mg PO TID #90 tabs 12/26/23 03/07/24 Rx aluminum hydrox-magnesium carb 95 30 ml PO QPCHS 01/18/24 03/07/24 History mg-358 mg/15 mL oral suspension (Acid Gone Antacid) lidocaine 5 % topical patch 1 patch topical DAILY 01/18/24 03/07/24 History gabapentin 600 mg tablet 600 mg PO TID NEUROPATHY 30 days 02/06/24 03/07/24 Rx #90 tabs baclofen 10 mg tablet 10 mg PO TID 02/20/24 03/07/24 History duloxetine 30 mg capsule,delayed 30 mg PO ONCE 02/20/24 03/07/24 History release New Prescriptions to Start Prescriptions: Allergies Allergy/AdvReac Type Severity Reaction Status Date / Time No Known Allergies Allergy Verified 02/27/24 11:15 Assessment and Plan *Assessment and plan (1) Lumbar radiculopathy: Status: Acute Category: Medical Code(s): M54.16 - Radiculopathy, lumbar region Plan I did discuss with the patient that we can see about doing additional injections such as the SI or lumbar epidurals however he is not quite at the 3-month fiona for either of these injections. We will reach out to [facility] and see about adding baclofen 10 mg 3 times daily with a 1 month supply of this medication in the meantime. Patient will return to clinic in 1 month for reevaluation of symptoms and plan of care. We will plan on seeing about additional epidurals in future as well as updating his imaging of his low back. Patient has been instructed to contact the clinic with any concerns before the next appointment. Dr. Shannon has reviewed this note and agrees with this plan of care. This note was dictated using voice recognition software and make contain errors or omissions. All injections are used with Lidocaine or Bupivacaine and Depo Medrol.
== END 2024-03-07 23:59 | disposition home or self-care (01) ==
LOC: SC.PAIN 10:40
PROVIDERS: Visit Provider Nurse Practitioner Family
DX: M54.16 Radiculopathy, lumbar region (principal); U07.0 Vaping-related disorder; Z73.89 Other problems related to life management difficulty; Z79.899 Other long term (current) drug therapy
CPT/HCPCS: 99212; G0463

== ENCOUNTER 2024-04-01 08:59 | Outpatient (CLI) | payer MEDICARE, MEDICAID, SELFPAY ==
[2024-04-01] VITALS (11 sets, daily range): BP systolic 116–126; BP diastolic 56–75; PULSE 60–69; RESP 14–18; TEMP 36.7–36.8; O2SAT 96–98
[2024-04-01] MEDS: ACETAMINOPHEN 500MG TAB 1000 MG PO (09:17)
[2024-04-01] MEDS: diphenhydrAMINE 50MG/ML VIAL 25 MG IV (09:18)
[2024-04-01] MEDS: METHYLPREDNISOLONE SOD SUCC 125MG VIAL 125 MG IV (09:18)
[2024-04-01] MEDS: SODIUM CHLORIDE 0.9% 50ML BAG 50 ML IV (09:35)
[2024-04-01] MEDS: OCRELIZUMAB 600 MG in 0.9 % SODIUM CHLORIDE 500 ML 100 MG IV (09:40)
== END 2024-04-01 12:55 | disposition home or self-care (01) ==
LOC: INF 09:00
PROVIDERS: PCP Family Medicine; Visit Provider Specialist
DX: G35 Multiple sclerosis (principal)
CPT/HCPCS: 96413; 96415; J1200; J2350; J2919

== ENCOUNTER 2024-04-10 09:33 | Outpatient (POV) | payer MEDICARE, MEDICAID, SELFPAY ==
[2024-04-10 10:14] VITALS: BP 142/71; PULSE 73; RESP 18; O2SAT 97; BMI 24.8
--- NOTE | 2024-04-10 10:21 | A.OFFVIS_ITS ---
[facility] Disclaimer: The information contained in this section may have been updated after the patient was seen, as this information can be updated by other users. Medical History Hyperlipidemia LDL goal <55 Pneumonia November 2023-resolved Cognitive communication deficit Unspecified abnormalities of gait and mobility Depression Smoking greater than 30 pack years Multiple pulmonary nodules Tobacco abuse Dyspnea on exertion Bilateral impacted cerumen CVA, old, dysarthria Mild aortic regurgitation Heart murmur COPD (chronic obstructive pulmonary disease) Foraminal stenosis of cervical region Cervical spondylosis Hip osteoarthritis DDD (degenerative disc disease), thoracic Hip pain, right Multiple sclerosis 300 mg IV currently stable on Ocrevus infusion every 6 months. Plan is to continue current dose, (clinically stable and brain MRI did not show evidence of new lesions) Chronic back pain Surgical History History of total right hip arthroplasty Family History Other Asthma Cancer Hypertension Stroke Thyroid disorder Social History Smoking Status: Current every day smoker tobacco type: e-cigarettes alcohol intake: former substance use type: former substance user and marijuana current occupational status: disabled Travel in the last 8 weeks: None household members: caregiver housing: house marital status: current occupational exposures/hazards: No caffeine: Yes PM Subjective & Objective Subjective Subjective:: Patient is a pleasant 63-year-old male who presents today for follow-up. Today he rates his pain an 8 out of 10. He does not complain of any new injury or trauma. He states he still has the chronic pain throughout his low back that does radiate down into his lower extremities. Patient did previously have a lumbar epidural of L5-S1 that did provide 50% improvement however has already worn off. Patient does state that he is still wanting to have additional injections because it does help at least take some of the severity down. Patient is a resident at a skilled nursing here locally and is prescribed gabapen tin 600 mg 3 times a day and tramadol 50 mg 3 times a day. He denies any side effects from this medication however he feels like it really does not do much. Patient does state that the baclofen we sent in at his last visit did not seem to make much difference as well. His Sen has been reviewed and is appropriate. Review of Systems: General: No recent weight changes, no fever, no sleep disturbances Respiratory: No cough, no shortness of air, no recurring pulmonary infections Cardiovascular/peripheral vascular: No chest pain, no palpitations, no edema, no shortness of breath Gastrointestinal: No new onset incontinence, normal bowel movements reported Genitourinary: No new onset incontinence Musculoskeletal: Low back pain Psychiatric: [Normal mood/affect] Neurological: [Denies weakness in extremities], [denies balance issues] Pain at rest (0-10 scale): 8 Objective Objective:: Physical Exam: General: Alert and oriented x3, no acute distress, pleasant and cooperative Lungs: Respirations even and unlabored, symmetrical chest expansion Eyes: PERRL Musculoskeletal: Flexion and extension of lumbar [spine] somewhat guarded secondary to pain, [antalgic gait noted] Neurological: Speech clear, no gross sensory deficit Has patient had previous pain injection?: No Conservative treatment options previously tried: Home exercise plan Length of treatment: Longer than 12 weeks Meds Home Medications and Allergies Home Medications ?Medication ?Instructions ?Recorded ?Confirmed ?Type aspirin 81 mg tablet,delayed 81 mg PO DAILY heart health 07/23/21 04/10/24 History release senna-fennel tablet 1 tab PO DAILY 03/09/22 04/10/24 History albuterol sulfate 90 mcg/actuation 1 inh inhalation QID PRN shortness 06/07/22 04/10/24 Rx aerosol inhaler of breath or wheezing #8.5 grams omeprazole 20 mg capsule,delayed 20 mg PO DAILY 06/07/22 04/10/24 History release acetaminophen 500 mg oral powder 500 mg PO Q6H PRN Pain 11/17/22 04/10/24 History packet (Tylenol Extra Strength) bisacodyl 5 mg tablet 10 mg PO DAILY PRN BOWELS 11/17/22 04/10/24 History oxybutynin chloride 10 mg 10 mg PO DAILY 11/17/22 04/10/24 History tablet,extended release 24 hr cyanocobalamin (vitamin B-12) 1,000 mcg SQ QMONTH 05/17/23 04/10/24 History 1,000 mcg/mL injection kit atorvastatin 80 mg tablet (Lipitor) 80 mg PO DAILY #30 tabs 09/21/23 04/10/24 Rx metoprolol succinate 25 mg 25 mg PO DAILY 11/15/23 04/10/24 History tablet,extended release 24 hr (Toprol XL) tramadol 50 mg tablet 50 mg PO TID #90 tabs 12/26/23 04/10/24 Rx aluminum hydrox-magnesium carb 95 30 ml PO QPCHS 01/18/24 04/10/24 History mg-358 mg/15 mL oral suspension (Acid Gone Antacid) lidocaine 5 % topical patch 1 patch topical DAILY 01/18/24 04/10/24 History gabapentin 600 mg tablet 600 mg PO TID NEUROPATHY 30 days 02/06/24 04/10/24 Rx #90 tabs baclofen 10 mg tablet 10 mg PO TID 02/20/24 04/10/24 History duloxetine 30 mg capsule,delayed 30 mg PO ONCE 02/20/24 04/10/24 History release umeclidinium 62.5 mcg-vilanterol 1 inh inhalation DAILY #60 ea 03/12/24 04/10/24 Rx 25 mcg/actuation powdr for inhalation (Anoro Ellipta) New Prescriptions to Start Prescriptions: Allergies Allergy/AdvReac Type Severity Reaction Status Date / Time No Known Allergies Allergy Verified 04/03/24 11:57 Assessment and Plan *Assessment and plan (1) Lumbar radiculopathy: Status: Acute Category: Medical Code(s): M54.16 - Radiculopathy, lumbar region Plan I have discussed with the patient that we will see about getting him in for his next lumbar epidural within the next month or so. Patient will return to clinic in 2 weeks for reevaluation of symptoms and plan of care. Patient has been instructed to contact the clinic with any concerns before the next appointment. Dr. Shannon has reviewed this note and agrees with this plan of care. This note was dictated using voice recognition software and make contain errors or omissions. All injections are used with Lidocaine or Bupivacaine and Depo Medrol.
== END 2024-04-10 23:59 | disposition home or self-care (01) ==
LOC: SC.PAIN 09:35
PROVIDERS: PCP Internal Medicine; Visit Provider Nurse Practitioner Family
DX: M54.16 Radiculopathy, lumbar region (principal); U07.0 Vaping-related disorder; Z79.899 Other long term (current) drug therapy
CPT/HCPCS: 99212; G0463

== ENCOUNTER 2024-04-24 08:59 | Outpatient (POV) | payer MEDICARE, OTHER, MEDICAID, SELFPAY ==
[2024-04-24 10:22] VITALS: BP 124/70; PULSE 70; RESP 18; O2SAT 96; BMI 26.2
--- NOTE | 2024-04-24 10:44 | EXP.PAIN.SOA ---
[facility] Disclaimer: The information contained in this section may have been updated after the patient was seen, as this information can be updated by other users. Medical History Hyperlipidemia LDL goal <55 Pneumonia November 2023-resolved Cognitive communication deficit Unspecified abnormalities of gait and mobility Depression Smoking greater than 30 pack years Multiple pulmonary nodules Tobacco abuse Dyspnea on exertion Bilateral impacted cerumen CVA, old, dysarthria Mild aortic regurgitation Heart murmur COPD (chronic obstructive pulmonary disease) Foraminal stenosis of cervical region Cervical spondylosis Hip osteoarthritis DDD (degenerative disc disease), thoracic Hip pain, right Multiple sclerosis 300 mg IV currently stable on Ocrevus infusion every 6 months. Plan is to continue current dose, (clinically stable and brain MRI did not show evidence of new lesions) Chronic back pain Surgical History History of total right hip arthroplasty Family History Other Asthma Cancer Hypertension Stroke Thyroid disorder Social History Smoking Status: Current every day smoker tobacco type: e-cigarettes alcohol intake: former substance use type: former substance user and marijuana current occupational status: disabled Travel in the last 8 weeks: None household members: caregiver housing: house marital status: current occupational exposures/hazards: No caffeine: Yes PM Subjective & Objective Subjective Subjective:: Patient is a pleasant 63-year-old male who presents today for worsening pain. Today he rates his pain a 7 out of 10. Patient denies any new trauma or injury. He does state that he is still experiencing chronic pain throughout his low back with numbness and tingling that does go down into his bilateral lower extremities. He does state the pain is fairly constant and does interfere with his ability perform activities of daily living such as cooking and cleaning. Patient has tried and failed conservative therapy including continued at home stretching exercise for longer than 12 weeks. Patient is currently managed with gabapentin 600 mg 3 times a day and tramadol 50 mg 3 times a day from an outside provider. Patient is a resident at a local intermediate. His Sen has been reviewed and is appropriate. Review of Systems: General: No recent weight changes, no fever, no sleep disturbances Respiratory: No cough, no shortness of air, no recurring pulmonary infections Cardiovascular/peripheral vascular: No chest pain, no palpitations, no edema, no shortness of breath Gastrointestinal: No new onset incontinence, normal bowel movements reported Genitourinary: No new onset incontinence Musculoskeletal: Low back pain, leg pain Psychiatric: [Normal mood/affect] Neurological: [Denies weakness in extremities], [denies balance issues] Pain at rest (0-10 scale): 7 Objective Objective:: Physical Exam: General: Alert and oriented x3, no acute distress, pleasant and cooperative Lungs: Respirations even and unlabored, symmetrical chest expansion Eyes: PERRL Musculoskeletal: Flexion and extension of lumbar [spine] somewhat guarded secondary to pain, [antalgic gait noted] Neurological: Speech clear, no gross sensory deficit Has patient had previous pain injection?: No Conservative treatment options previously tried: Home exercise plan Length of treatment: Longer than 12 weeks Meds Home Medications and Allergies Home Medications ?Medication ?Instructions ?Recorded ?Confirmed ?Type aspirin 81 mg tablet,delayed 81 mg PO DAILY heart health 07/23/21 04/24/24 History release senna-fennel tablet 1 tab PO DAILY 03/09/22 04/24/24 History albuterol sulfate 90 mcg/actuation 1 inh inhalation QID PRN shortness 06/07/22 04/24/24 Rx aerosol inhaler of breath or wheezing #8.5 grams omeprazole 20 mg capsule,delayed 20 mg PO DAILY 06/07/22 04/24/24 History release acetaminophen 500 mg oral powder 500 mg PO Q6H PRN Pain 11/17/22 04/24/24 History packet (Tylenol Extra Strength) bisacodyl 5 mg tablet 10 mg PO DAILY PRN BOWELS 11/17/22 04/24/24 History oxybutynin chloride 10 mg 10 mg PO DAILY 11/17/22 04/24/24 History tablet,extended release 24 hr cyanocobalamin (vitamin B-12) 1,000 mcg SQ QMONTH 05/17/23 04/24/24 History 1,000 mcg/mL injection kit atorvastatin 80 mg tablet (Lipitor) 80 mg PO DAILY #30 tabs 09/21/23 04/24/24 Rx metoprolol succinate 25 mg 25 mg PO DAILY 11/15/23 04/24/24 History tablet,extended release 24 hr (Toprol XL) tramadol 50 mg tablet 50 mg PO TID #90 tabs 12/26/23 04/24/24 Rx aluminum hydrox-magnesium carb 95 30 ml PO QPCHS 01/18/24 04/24/24 History mg-358 mg/15 mL oral suspension (Acid Gone Antacid) lidocaine 5 % topical patch 1 patch topical DAILY 01/18/24 04/24/24 History gabapentin 600 mg tablet 600 mg PO TID NEUROPATHY 30 days 02/06/24 04/24/24 Rx #90 tabs baclofen 10 mg tablet 10 mg PO TID 02/20/24 04/24/24 History duloxetine 30 mg capsule,delayed 30 mg PO ONCE 02/20/24 04/24/24 History release umeclidinium 62.5 mcg-vilanterol 1 inh inhalation DAILY #60 ea 03/12/24 04/24/24 Rx 25 mcg/actuation powdr for inhalation (Anoro Ellipta) New Prescriptions to Start Prescriptions: Allergies Allergy/AdvReac Type Severity Reaction Status Date / Time No Known Allergies Allergy Verified 04/03/24 11:57 Assessment and Plan *Assessment and plan (1) Lumbar radiculopathy: Status: Acute Category: Medical Code(s): M54.16 - Radiculopathy, lumbar region (2) Low back pain: Status: Acute Qualifiers: Chronicity: chronic Back pain laterality: bilateral Sciatica presence: unspecified whether sciatica present Qualified Code(s): M54.50 - Low back pain, unspecified; G89.29 - Other chronic pain Category: Medical Code(s): M54.50 - Low back pain, unspecified Plan Patient is experiencing worsening pain in his low back and legs with numbness and tingling. Patient did have limited range of motion of his lumbar spine during today's visit. Patient did previously have a lumbar epidural at L5-S1 that did provide 50% improvement back at the very beginning of February. I did discuss with him that he may benefit from a repeat lumbar epidural steroid injection. Risk and benefits were discussed with the patient and he would like to proceed forward with this plan of care. Patient has tried and failed conservative therapy including continued at home stretching exercise for longer than 12 weeks. Patient is not on any blood thinners. He will be scheduled for a lumbar epidural steroid injection L5-S1 under fluoroscopy. Patient has been instructed to contact the clinic with any concerns before the next appointment. Dr. Shannon has reviewed this note and agrees with this plan of care. This note was dictated using voice recognition software and make contain errors or omissions. All injections are used with Lidocaine or Bupivacaine and Depo Medrol.
== END 2024-04-24 23:59 | disposition home or self-care (01) ==
PROVIDERS: PCP Internal Medicine; Visit Provider Nurse Practitioner Family
DX: M54.16 Radiculopathy, lumbar region (principal); M54.50 Low back pain, unspecified; G89.29 Other chronic pain; U07.0 Vaping-related disorder; Z73.89 Other problems related to life management difficulty; Z79.899 Other long term (current) drug therapy
CPT/HCPCS: 99212; G0463

== ENCOUNTER 2024-05-16 14:20 | Outpatient (CLI) | payer MEDICARE, OTHER, MEDICAID, SELFPAY ==
--- NOTE | 2024-05-16 14:24 | CT_ITS ---
FINAL REPORT TECHNIQUE: Thin section axial images were obtained from the lung apices to the upper abdomen by computed tomography. Reformatted images were obtained and reviewed. This study was performed with techniques to keep radiation doses al low as reasonably achievable (ALARA). Individualized dose reduction techniques using automated exposure control or adjustment of mA and/or kV according to the patient's size were employed. CLINICAL HISTORY: lung cancer screening current smoker 1ppd x53 years COMPARISON: 05/16/2023 FINDINGS: CHEST CT LOW DOSE 61-year-old male, current smoker, [id number] history. CTDI vol (mGy): 2.9 DLP (mGy-cm): 108.38 There is no axillary adenopathy. There is no mediastinal or hilar mass or adenopathy. The heart is normal in size. Severe coronary artery calcifications are once again identified. There is significant elevation of the left hemidiaphragm. There is no pericardial or pleural effusion. There is mild emphysema and mild pulmonary scarring. Lung window images demonstrate slight enlargement in the superior segment of the left lower lobe nodule noted on the prior CT examination. A medial component of that nodule on today's examination measures 12 mm, whereas the prior CT of May 2023 demonstrated a 9 mm nodule. This is best seen on image #18 of series 3. Limited images of the upper abdomen are unremarkable. IMPRESSION: Lung-RADS category 4A S, the S designation for severe coronary artery calcifications. Recommend PET/CT for further evaluation. Reviewed, Interpreted and Dictated by Paul Morrison III, MD Transcribed by Anni Umana Authenticated and . [facility]
== END 2024-05-16 23:59 | disposition home or self-care (01) ==
LOC: RAD 14:21
PROVIDERS: PCP Family Medicine; Visit Provider Internal Medicine Pulmonary Disease
DX: F17.210 Nicotine dependence, cigarettes, uncomplicated (principal)
CPT/HCPCS: 71271

== ENCOUNTER 2024-08-15 14:17 | Outpatient (CLI) | payer MEDICARE, OTHER, MEDICAID, SELFPAY ==
[2024-08-15 14:52] LABS: Basophils # 0.1 K/mm3 (0-0.2); Basophils % 0.8 % (0.1-2.0); Eosinophils # 0.2 K/mm3 (0.0-0.4); Eosinophils % 1.7 % (0.1-12.0); Hematocrit 44.3 % (42.0-52.0); Hemoglobin 14.5 g/dL (14.1-18.0); Lymphocytes # 3.2 K/mm3 (0.7-4.5); Lymphocytes % 24.8 % (10-50); Mean Corpuscular HGB Conc 32.7 g/dL (31.8-35.4); Mean Corpuscular Hemoglobin 28.8 pg (27.0-31.2); Mean Corpuscular Volume 87.9 fl (80-94); Mean Platelet Volume 9.6 fl (7.4-10.4); Monocytes # 1.2 K/mm3 (0.1-1.0); Monocytes % 9.2 % (1.7-9.3); Neutrophils # 8.2 K/mm3 (1.8-7.8); Neutrophils % 63.1 % (37.0-80.0); Platelet Count 401 K/mm3 (142-424); Red Blood Count 5.04 M/mm3 (4.60-6.20); Red Cell Distribution Width 13.5 % (11.5-17.5)
[2024-08-15 15:08] LABS: Albumin Level 4.5 g/dl (3.5-5.0); Chloride 105 mmol/L (98-107); Potassium 4.3 mmoL/L (3.5-5.1); Sodium 142 mmol/L (136-145)
[2024-08-15 15:11] LABS: Alanine Aminotransferase 20 U/L (12-78); Albumin/Globulin Ratio 2.3 (1.1-1.8); Alkaline Phosphatase 116 U/L (38-126); Anion Gap 12.3 mEq/L (5-15); Aspartate Amino Transferase 21 U/L (17-59); Bilirubin,Total 0.3 mg/dl (0.2-1.3); Blood Urea Nitrogen 17 mg/dl (9-20); Carbon Dioxide 29 mmol/L (22.0-30.0); Estimated Glomerular Filt Rate 61 ml/min (>60); GFR (African American) 74 ML/MIN (>60); Total Protein,Serum 6.5 g/dl (6.3-8.2)
[2024-08-15 15:12] LABS: Calcium 9.4 mg/dl (8.4-10.2); Glucose 119 mg/dl (74-100)
== END 2024-08-15 23:59 | disposition home or self-care (01) ==
LOC: LAB 14:18
PROVIDERS: PCP Family Medicine; Visit Provider Specialist
DX: D75.839 Thrombocytosis, unspecified (principal); G37.9 Demyelinating disease of central nervous system, unspecified; G43.909 Migraine, unspecified, not intractable, without status migrainosus; E53.8 Deficiency of other specified B group vitamins; E78.5 Hyperlipidemia, unspecified
CPT/HCPCS: 36415; 80053; 85025

== ENCOUNTER 2024-09-30 08:38 | Outpatient (CLI) | payer MEDICARE, OTHER, MEDICAID, SELFPAY ==
[2024-09-30] VITALS (7 sets, daily range): BP systolic 135–150; BP diastolic 69–83; PULSE 61–74; RESP 18; O2SAT 96
[2024-09-30] MEDS: ACETAMINOPHEN 500MG TAB 1000 MG (08:48)
[2024-09-30] MEDS: METHYLPREDNISOLONE SOD SUCC 125MG VIAL 125 MG (08:48)
[2024-09-30] MEDS: diphenhydrAMINE 50MG/ML VIAL 50 MG (08:48)
[2024-09-30] MEDS: OCRELIZUMAB 600 MG in 0.9 % SODIUM CHLORIDE 500 ML 100 MG IV (09:29)
== END 2024-09-30 12:20 | disposition home or self-care (01) ==
LOC: INF 08:40
PROVIDERS: PCP Family Medicine; Visit Provider Specialist
DX: G35 Multiple sclerosis (principal)
CPT/HCPCS: 96413; 96415; J1200; J2350; J2919

== ENCOUNTER 2024-12-06 10:11 | Outpatient (CLI) | payer MEDICARE, OTHER, MEDICAID, SELFPAY ==
--- OUTSIDE RECORDS SUMMARY | 2024-12-06 10:20 | XMS_ITS | Clinical Summary ---
Author Organization [facility] Address [address] [place] [address] Phone Care Team Providers Care Long Chain Dyeing Machine Operator Name Role Phone Unavailable Primary Care Provider Unavailabl e Allergies No known active allergies Medications * This document contains information received from the source organization and may not represent a complete record from that organization. No known medications Active Problems No known active problems Medical History Medical History Date Comments Heart abnormality Shortness of breath Multiple sclerosis (HCC) Stroke (HCC) Depression Weakness generalized COPD (chronic obstructive pulmonary disease) (HC C) CAD (coronary artery disease) Hypertension Social History Tobacco Use Types Packs/Day Years Used Date Smoking Tobacco: Every Day Smokeless Tobacco: Never Tobacco Cessation:Ready to Q uit: No; Counseling Given: No Alcohol Use Standard Drinks/Week Comments Not Currently 0 (1 standard drink = 0.6 oz pur e alcohol) Sex and Gender Information Value Date Recorded Sex Assigned at Not on file Legal Sex Male 9:51 AM EDT Gender Identity Not on file Sexual Orientation Not on file Obstetrics History Plan of Treatment Health Maintenance Due Date Last Done Comments Wellness Exam Medicare 1962 Hepatitis C Screening 1977 DTaP/TDaP/Td (1 - Tdap) 1978 Pneumococcal Vaccine 50+ (1 of 2 - PCV) 1978 Cologuard 2004 Colon Cancer Screening 2004 Colonoscopy 2004 FIT 2004 Sigmoidoscopy 2004 Virtual Colonography 2004 Zoster (1 of 2) 2009 COVID-19 Vaccine (2023-2 5 season) 2024 AAA Screening 2024 Influenza Vaccine (Season Ended) 2025 Hepatitis B Vaccine Aged Out No longe r eligible based on patient's age to complete this topic Meningococcal B Vaccine Aged Out No l onger eligible based on patient's age to complete this topic Insurance [place]ICA[place] [address]
--- OUTSIDE RECORDS SUMMARY | 2024-12-06 10:20 | XMS_ITS | Clinical Summary ---
Author Organization [facility] Address [address] [place] [address] Care Team Providers Care Milling General Superintendent Name Role Phone Luis E Roque MD Primary Care Provider + [phone] Allergies No known active allergies Medications DULoxetine (Cymbalta) [address] capsule Take 60 mg by mouth 1 (one) time each day. Do not crush or chew. Active gabapentin (Neurontin) 600 MG tablet Take 600 mg by mouth 3 (three) times a day. Active oxybutynin XL (Ditropan-XL) 10 MG 24 hr tablet Take 10 mg by mouth 1 (one) time each day. Do not crush, chew, or split. Active tiotropium-olod aterol (Stiolto Respimat) 2.5-2.5 MCG/ACT aerosol solution inhaler Inhale 2 Inhalation 1 (one) time each day. Active albuterol 108 (90 Base) MCG/ACT inhaler Inhale 2 puffs every 6 (six) hours if needed for wheezing or shortness of breath. Active senna (Senokot) 8.6 MG tablet Take 2 tablets by mouth at night if needed for constipation. Active bisacodyl (Dulcolax) 5 MG EC tablet Take 5 mg by mouth 1 (one) time each day if needed for constipation. Do not crush, chew, or split. Active baclofen (Lioresal) 10 MG tablet Take 10 mg by mouth 3 (three) times a day if needed for muscle spasms. Active oxyCODONE (Roxicodone) 5 MG immediate release tablet Take 1 tablet (5 mg total) by mouth every 6 (six) hours if needed for severe pain for up to 30 doses. 30 tablet 2 Active apixaban (Eliquis) 2.5 MG tablet Take 1 tablet (2.5 mg total) by mouth 2 (two) times a day. For 4 weeks post-op for blood clot prevention 56 tablet 2 Active Additional Information Patient not taking.Reported on 05/23/2022 acetaminophen (Tylenol Extra Strength) 500 MG tablet Take 2 tablets (1,000 mg total) by mouth every 8 (eight) hours. 100 tablet 2 Active traMADol (Ultram) 50 MG tablet Take 1 tablet (50 mg total) by mouth every 4 (four) hours if needed for severe pain. 60 tablet 2 Active Active Problems Problem Noted Date Diagnosed Date Unilateral primary osteoarthritis, right hip History of stroke 04/01/2022 History of alcohol abuse 04/01/2022 Primary osteoarthritis of one hip, right 022 Overview (01/19/2022): Added automatically from request for surgery [id number] Immunizations Immunization Administration Dates Next Due Pneumococcal Polysaccharide PPV23 01/28/2016 Family History Medical History Relation Name Comments Lung cancer Father FH: lung cancer Other cancer Father Other cancer Mother Ovarian cancer Mother FH: ovarian c ancer Anesthesia problems Neg Hx Malig Hyperthermia Neg Hx Relation Name Status Comments Father Mother Social History Tobacco Use Types Packs/Day Years Used Date Smoking Tobacco: Every Day Cigarettes 0.3 45 Smokeless Tobacco: Never Tobacco Cessation:Ready to Q uit: Not Asked; Counseling Given: Not Answered Alcohol Use Standard Drinks/Week Comments Not Currently 0 (1 standard drink = 0.6 oz pure alcohol) hx of alcohol abuse no drinks since 07/2021 CAGE ASSESSMENT Answer Date Recorded Cage unable to access Not on file 04/07/2022 Cage max number of drinks Not on file 2021 Cage Beverages a week Not on file 04/07/2022 Have you ever felt you should CUT down on your d rinking? 0 04/07/2022 Have you been ANNOYED by people criticizing your drinking? 0 04/07/2022 Have you felt GUILTY about your drinking? 0 04/07/2022 Have you had a drink first t marcin in the morning (EYE-SEWING MACHINE ATTACHMENT TESTER) to steady your nerves or to get rid of a hangover? 0 04/07/2022 CAGE Questionnaire Score 0 022 Sex and Gender Information Value Date Recorded Sex Assigned at Not on file Legal Sex Male 6:35 PM EDT Gender Identity Not on file Sexual Orientation Not on file Last Filed Vital Signs Vital Sign Reading Time Taken Comments Blood Pressure 102/69 05/23/2022 11:56 AM EST Pulse 77 05/23/2022 11:56 AM EST Temperature 36.7 C (98 F) 04/08/2022 11:37 AM EDT Respiratory Rate 12 04/08/2022 8:06 AM EDT Oxygen Saturation 95% 04/22/2022 10:57 AM EST Inhaled Oxygen Concentration - - Weight 73.9 kg (163 lb) 05/23/2022 11:56 AM EST Height 177.8 cm (5' 10 ) 05/23/2022 11:56 AM EST Body Mass Index 23.39 05/23/2022 11:56 AM EST Plan of Treatment Health Maintenance Due Date Last Done Comments UKY-Depression Screening 1959 UKY-Hepatitis C Screening 1959 UKY-Medicare Annual Wellness (AWV) 1959 UKY-/Child/Adol SDOH Screenings 1959 UKY- SDOH Screenings 1977 UKY-Adult SDOH Screenings 1977 UKY-DTaP,Tdap,and Td Vaccine s (1 - Tdap) 1978 CT Colonography 2004 Colonoscopy 2004 FIT-DNA 2004 FIT 2004 FOBT 2004 Sigmoidoscopy 2004 UKY-Colorectal Cancer Screening 2004 UKY-Zoster Vaccines (1 of 2) 2009 UKY-Pneumococcal Vaccine: 50 + Years (2 of 2 - PCV) 06/01/2021 06/01/2020, 01/28/2016 [id number] Vaccine (1 - 2023- season) 2024 UKY-Influenza Vaccine (Seaso n Ended) 2025 06/01/2020, 07/24/2018, 02/26/2013 UKY-RSV Vaccine: 60+ Years o r (1 - 1-dose 75+ series) 2034 HPV Vaccines Aged Out No longer eligi ble based on patient's age to complete this topic UKY-HIB Vaccines Aged Out No longer e ligible based on patient's age to complete this topic UKY-Hepatitis A Vaccines Aged Out No longer eligible based on patient's age to complete this topic UKY-IPV Vaccines Aged Out No longer e ligible based on patient's age to complete this topic UKY-Rotavirus Vaccines Aged Out No lo nger eligible based on patient's age to complete this topic Medical Devices Implanted Type Area Mixing Pan Tender Device Identifier Shelf Expiration Date Model / Serial / Lot Chg Shell R3 3 Hole Acet 58mm - [id number] Implanted:Qty: 1 on 04/07/2022 by Fernando Ortiz MD at [facility] Right: Hip [employer]-[id number] 11/24/2031 [id number] / / [id number] Liner Or3o Dual Mbility 44 58 - [id number] Implanted:Qty: 1 on 04/07/2022 by Fernando Ortiz MD at [facility] Right: Hip [employer]-[id number] 02/02/2031 [id number] / / [id number] Chg Screw Ref Spher Head 30mm - [id number] Implanted:Qty: 1 on 04/07/2022 by Fernando Ortiz MD at [facility] Right: Hip [employer]-[id number] 11/10/2031 [id number] / / [id number] Liner Or3o Dual Mbility Xlpe 28 44 - [id number] Implanted:Qty: 1 on 04/07/2022 by Fernando Ortiz MD at [facility] Right: Hip [employer]-[id number] 07/22/2031 [id number] / / [id number] Chg Head Oxinium Fem 05/25 28m - [id number] Implanted:Qty: 1 on 04/07/2022 by Fernando Ortiz MD at [facility] Right: Hip [employer]-[id number] 11/23/2031 [id number] / / [id number] Chg Stem Syn Por Plus Panchal Ho Sz - [id number] Implanted:Qty: 1 on 04/07/2022 by Fernando Ortiz MD at [facility] Right: Hip [employer]-[id number] 09/26/2031 [id number] / / [id number] Insurance [place] MED[place] Advance Directives Documents on File Type Date Recorded Patient Care Program Director Expl anation Advance Directives and Livin g Will 04/09/2022 10:04 AM * Full Code (Latest Code Status on File) Date Activated Date Inactivated Comments 04/07/2022 10:54 AM 04/08/2022 3:38 PM Question Answer Comments Patient has decision-making capacity? Yes Care Teams Milling General Superintendent Relationship Specialty Start Date End Date Luis E Roque MD [address] [place] [address] JAM Bacon [address] PCP - General 10/23/20
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
--- NOTE | 2024-12-06 10:30 | CT_ITS ---
FINAL REPORT TECHNIQUE: Axial CT without IV contrast administration. Coronal and sagittal images were obtained and reviewed. This study was performed with techniques to keep radiation doses as low as reasonably achievable, (ALARA). Individualized dose reduction techniques using automated exposure control or adjustment of mA and/or kV according to the patient''s size were employed. CLINICAL HISTORY: Nodule COMPARISON: 05/16/2024 FINDINGS: There is a mildly spiculated nodule in the superior segment of the left lower lobe on image 27 series 2 measuring 8 mm which is unchanged from the previous exam. Changes of emphysema are noted. There is a tiny nodule in the right upper lobe on image 36 of series 2 measuring 3 mm which is not evident on the previous exam. No pleural or pericardial effusion is seen. No adenopathy or mass lesion is present. There is chronic elevation of the left diaphragm. IMPRESSION: Stable irregular density superior segment left lower lobe. Abnormality remains indeterminate for neoplasm. Recommend six-month follow-up CT scan. Reviewed, Interpreted and Dictated by Jeanine Cabral MD Transcribed by Alaina Devries Authenticated and [facility]
== END 2024-12-06 23:59 | disposition home or self-care (01) ==
LOC: RAD 10:13
PROVIDERS: PCP Family Medicine; Visit Provider Internal Medicine Pulmonary Disease
DX: R91.1 Solitary pulmonary nodule (principal)
CPT/HCPCS: 71250

== ENCOUNTER 2024-12-16 09:40 | Outpatient (CLI) | payer MEDICARE, OTHER, MEDICAID, SELFPAY ==
[2024-12-16 20:23] LABS: Alanine Aminotransferase 10 U/L (12-78); Albumin Level 4.2 g/dl (3.5-5.0); Albumin/Globulin Ratio 1.6 (1.1-1.8); Alkaline Phosphatase 119 U/L (38-126); Anion Gap 21.0 mEq/L (5-15); Aspartate Amino Transferase 14 U/L (17-59); Bilirubin,Total 0.3 mg/dl (0.2-1.3); Blood Urea Nitrogen 24 mg/dl (9-20); Calcium 8.7 mg/dl (8.4-10.2); Carbon Dioxide 23 mmol/L (22.0-30.0); Chloride 104 mmol/L (98-107); Cholesterol 190 mg/dl (140-200); Creatinine,Serum 1.60 mg/dl (0.66-1.25); Estimated Glomerular Filt Rate 44 ml/min (>60); GFR (African American) 53 ML/MIN (>60); Globulin 2.6 g/dL (1.3-3.2); Glucose 84 mg/dl (74-100); HDL Cholesterol 40 mg/dl (40-60); Potassium 5.0 mmoL/L (3.5-5.1); Sodium 143 mmol/L (136-145); Total Protein,Serum 6.8 g/dl (6.3-8.2); Triglycerides 90 mg/dl (30-150)
[2024-12-16 20:27] LABS: Hemoglobin A1C 7.0 % (4.0-6.0)
--- OUTSIDE RECORDS SUMMARY | 2024-12-17 07:38 | XMS_ITS | Clinical Summary ---
Author Organization [facility] Address [address] [place] [address] Phone Care Team Providers Care E Commerce Marketing Analyst Name Role Phone Unavailable Primary Care Provider [...] season) 2024 AAA Screening 2024 Influenza Vaccine (#1) 2025 Hepatitis B Vaccine Aged Out No longe r eligible based on patient's age to complete this topic Meningococcal B Vaccine Aged Out No l onger eligible based on patient's age to complete this topic Insurance MEDICAID [place] [address]
--- OUTSIDE RECORDS SUMMARY | 2024-12-17 07:38 | XMS_ITS | Clinical Summary ---
Author Organization [facility] Address [address] [place] [address] Care Team Providers Care Accountant Name Role Phone Enrico Roque MD Primary [...] therelease of HIV test results or diagnoses. [id number] Allergies No known active allergies Medications [...] 02/21/2019 Overview (05/26/2020): Mbr called the nurse renewable energy consultant line -recent fall from wheelchair-denied any injuries -using his walker now -having some pain now -has appointment tomorrow 02/22 with Hotel Or Motel Cleaning Supervisor -planning on notifying his PCP about fall [...] discuss his fall at his next appointment. Gemma Barajas RN 11/25/2019 Impaired mobility and ADLs [...] on file Insurance [employer] Care Teams Accountant Relationship Specialty Start Date End Date Enrico Roque MD [facility] [place] [address] PCP - General Emergency Medicine 06/19/17 Marc Matta MD [address] [facility] [place] [address] Consulting Physician Neurology 05/01/20
--- OUTSIDE RECORDS SUMMARY | 2024-12-17 07:38 | XMS_ITS | Clinical Summary ---
Author Organization [facility] Address [address] [place] [address] Care Team Providers Care Lens Grinding Machine Operator Name Role Phone Luis E Roque MD Primary Care Provider + [phone] Allergies No known active allergies Medications DULoxetine [...] (01/19/2022): Added automatically from request for surgery [id number] Immunizations Immunization Administration Dates Next Due Pneumococcal [...] drink first t marcin in the morning (EYE-DRAFTER MECHANICAL) to steady your nerves or to get [...] of 2 - PCV) 06/01/2021 06/01/2020, 01/28/2016 [id number] Vaccine (1 - 2023- season) 2024 UKY-Influenza Vaccine (#1) 02/10/202506/01, 07/24/2018, 02/26/2013 UKY-RSV Vaccine: 60+ Years o [...] this topic Medical Devices Implanted Type Area Health Care Marketing Specialist Device Identifier Shelf Expiration Date Model / Serial / Lot Chg Shell R3 3 Hole Acet 58mm - [id number] Implanted:Qty: 1 on 04/07/2022 by Fernando Ortiz MD at [facility] Right: Hip [employer]-[id number] 11/24/2031 [id number] / / [id number] Liner Or3o Dual Mbility 44 58 - [id number] Implanted:Qty: 1 on 04/07/2022 by Fernando Ortiz MD at [facility] Right: Hip [employer]-[id number] 02/02/2031 [id number] / / [id number] Chg Screw Ref Spher Head 30mm - [id number] Implanted:Qty: 1 on 04/07/2022 by Fernando Ortiz MD at [facility] Right: Hip [employer]-[id number] 11/10/2031 [id number] / / [id number] Liner Or3o Dual Mbility Xlpe 28 44 - [id number] Implanted:Qty: 1 on 04/07/2022 by Fernando Ortiz MD at [facility] Right: Hip [employer]-[id number] 07/22/2031 [id number] / / [id number] Chg Head Oxinium Fem 05/25 28m - [id number] Implanted:Qty: 1 on 04/07/2022 by Fernando Ortiz MD at [facility] Right: Hip [employer]-[id number] 11/23/2031 [id number] / / [id number] Chg Stem Syn Por Plus Panchal Ho Sz - [id number] Implanted:Qty: 1 on 04/07/2022 by Fernando Ortiz MD at [facility] Right: Hip [employer]-[id number] 09/26/2031 [id number] / / [id number] Insurance [place] Advance Directives Documents on File Type Date Recorded Patient Gang Knife Fish Chopper Expl anation Advance Directives and Livin g Will 04/09/2022 10:04 AM * Full Code (Latest Code Status on File) Date Activated Date Inactivated Comments 04/07/2022 10:54 AM 04/08/2022 3:38 PM Question Answer Comments Patient has decision-making capacity? Yes Care Teams Lens Grinding Machine Operator Relationship Specialty Start Date End Date Luis E Roque MD [address] [place] [address] JAM Bacon [address] PCP - General 10/23/20
== END 2024-12-16 23:59 | disposition home or self-care (01) ==
LOC: LAB.DROPOF 12-17 07:36
PROVIDERS: PCP Family Medicine; Visit Provider Family Medicine
DX: R73.09 Other abnormal glucose (principal); Z12.5 Encounter for screening for malignant neoplasm of prostate; E78.5 Hyperlipidemia, unspecified
CPT/HCPCS: 80053; 80061; 83036; G0103

== ENCOUNTER 2025-03-11 14:06 | Outpatient (CLI) | payer MEDICARE, OTHER, SELFPAY ==
--- OUTSIDE RECORDS SUMMARY | 2025-03-11 14:12 | XMS_ITS | Clinical Summary ---
Author Organization [facility] Address [address] [place] [address] Phone Care Team Providers Care Finance Lecturer Name Role Phone Unavailable Primary Care Provider Unavailabl e Allergies No known active allergies Medications * This document contains information received from the source organization and may not represent a complete record from that organization. No known medications Active Problems No known active problems Medical History Medical History Date Comments Heart abnormality Shortness of breath Multiple sclerosis Stroke (HCC) Depression Weakness generalized COPD (chronic [...] on file Sexual Orientation Not on file Plan of Treatment Health Maintenance Due Date Last Done Comments Wellness Exam Medicare 1962 Hepatitis C Screening 1977 DTaP/TDaP/Td (1 - Tdap) 1978 Pneumococcal Vaccine 50+ (1 of 2 - PCV) 1978 Cologuard 2004 Colon Cancer Screening 2004 Colonoscopy 2004 FIT 2004 Sigmoidoscopy 2004 Virtual Colonography 2004 Zoster (1 of 2) 2009 AAA Screening 2024 COVID-19 Vaccine (2023-2 5 season) 2025 Influenza Vaccine (#1) 2025 Hepatitis B Vaccine Aged Out No longe r eligible based on patient's age to complete this topic Meningococcal B Vaccine Aged Out No l onger eligible based on patient's age to complete this topic Insurance MEDICA[place] [address]
--- OUTSIDE RECORDS SUMMARY | 2025-03-11 14:12 | XMS_ITS | Clinical Summary ---
Author Organization [facility] Address [address] [place] [address] Care Team Providers Care Sas Developer Analyst Name Role Phone Luis E Roque MD Primary Care Provider + [phone] Allergies No known active allergies Medications DULoxetine [...] (01/19/2022): Added automatically from request for surgery [id number] Immunizations Immunization Administration Dates Next Due Pneumococcal [...] drink first t marcin in the morning (EYE-SUPPORT GROUP MANAGER) to steady your nerves or to get [...] Screening 1959 [facility]-Medicare Annual Wellness (AWV) 1959 [facility]-Infant/Child/Adol SDOH Screenings 1959 [facility]- SDOH Screenings 1977 [facility]Y-Adult SDOH Screenings 1977 [facility]Y-DTaP,Tdap,and Td Vaccine s (1 - Tdap) 1978 CT Colonography 2004 Colonoscopy 2004 FIT-DNA 2004 FIT 2004 FOBT 2004 Sigmoidoscopy 2004 [facility]Y-Colorectal Cancer Screening 2004 [facility]Y-Zoster Vaccines (1 of 2) 2009 [facility]Y-Pneumococcal Vaccine: 50 + Years (2 of 2 - PCV) 06/01/2021 06/01/2020, 01/28/2016 [id number] Vaccine (1 - season) 2025 [facility]Y-Influenza Vaccine (#1) 02/10/202506/01, 07/24/2018, 02/26/2013 [facility]Y-RSV [...] this topic Medical Devices Implanted Type Area Flumer Device Identifier Shelf Expiration Date Model / Serial / Lot Chg Shell R3 3 Hole Acet 58mm - [id number] Implanted:Qty: 1 on 04/07/2022 by Fernando Ortiz MD at [facility] Right: Hip [employer]-[id number] 11/24/2031 [id number] / / [id number] Liner Or3o Dual Mbility 44 58 - [id number] Implanted:Qty: 1 on 04/07/2022 by Fernando Ortiz MD at [facility] Right: Hip [employer]-[id number] 02/02/2031 [id number] / / [id number] Chg Screw Ref Spher Head 30mm - [id number] Implanted:Qty: 1 on 04/07/2022 by Fernando Ortiz MD at [facility] Right: Hip [employer]-[id number] 11/10/2031 [id number] / / [id number] Liner Or3o Dual Mbility Xlpe 28 44 - [id number] Implanted:Qty: 1 on 04/07/2022 by Fernando Ortiz MD at [facility] Right: Hip [employer]-[id number] 07/22/2031 [id number] / / [id number] Chg Head Oxinium Fem 05/25 28m - [id number] Implanted:Qty: 1 on 04/07/2022 by Fernando Ortiz MD at [facility] Right: Hip [employer]-[id number] 11/23/2031 [id number] / / [id number] Chg Stem Syn Por Plus Panchal Ho Sz - [id number] Implanted:Qty: 1 on 04/07/2022 by Fernando Ortiz MD at [facility] Right: Hip [employer]-[id number] 09/26/2031 [id number] / / [id number] Insurance [place] Advance Directives Documents on File Type Date Recorded Patient Transformer Builder Expl anation Advance Directives and Livin g Will 04/09/2022 10:04 AM * Full Code (Latest Code Status on File) Date Activated Date Inactivated Comments 04/07/2022 10:54 AM 04/08/2022 3:38 PM Question Answer Comments Patient has decision-making capacity? Yes Care Teams Sas Developer Analyst Relationship Specialty Start Date End Date Luis E Roque MD [address] [place] [address] JAM Bacon [address] PCP - General 10/23/20
== END 2025-03-11 23:59 | disposition home or self-care (01) ==
LOC: DIETICIAN 14:07
PROVIDERS: PCP Family Medicine; Visit Provider Specialist
DX: E11.65 Type 2 diabetes mellitus with hyperglycemia (principal)
CPT/HCPCS: 97802

== ENCOUNTER 2025-03-18 13:50 | Outpatient (CLI) | payer MEDICARE, OTHER, SELFPAY ==
--- OUTSIDE RECORDS SUMMARY | 2025-03-18 13:52 | XMS_ITS | Clinical Summary ---
Author Organization [facility] Address [address] [place] [address] Phone Care Team Providers Care Pizza Hut Assistant Name Role Phone Unavailable Primary Care Provider [...] age to complete this topic Insurance MEDICAID [place] [address]
--- OUTSIDE RECORDS SUMMARY | 2025-03-18 13:52 | XMS_ITS | Clinical Summary ---
Author Organization [facility] Address [address] [place] [address] Care Team Providers Care Lithopress Operator Name Role Phone Enrico Roque MD Primary [...] therelease of HIV test results or diagnoses. [id number] Allergies No known active allergies Medications amitriptyline (ELAVIL) 25 MG tablet Take 25 mg by mouth at bedtime. 05/26/2017 Active lisinopril (PRINIVIL,ZESTR IL) 20 MG tablet Take 20 mg by mouth daily. 04/18/2017 Active ocrelizumab (OCREVUS) 30 mg/mL SolnIndications :Multiple sclerosis Inject 600 mg into the vein continuous. Active cyanocobalamin (VITAMIN B-12) 1000 MCG tabletIndicatio ns:Multiple sclerosis Take 1 tablet (1,000 mcg total) by [...] back pain with right-sided sciatica,Multip le sclerosis Take 1 capsule (60 mg total) by mouth daily. 30 capsule 5 04/07/2021 Active baclofen (LIORESAL) 10 MG tablet Take 1 tablet (10 mg total) by mouth 3 times a day. 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
--- OUTSIDE RECORDS SUMMARY | 2025-03-18 13:53 | XMS_ITS | Clinical Summary ---
Author Organization [facility] Address [address] [place] [address] Care Team Providers Care Checkerer Hand Name Role Phone Luis E Roque MD Primary Care Provider + [phone] Allergies No known active allergies Medications DULoxetine [...] (01/19/2022): Added automatically from request for surgery [id number] Immunizations Immunization Administration Dates Next Due Pneumococcal [...] drink first t marcin in the morning (EYE-SHUTTLE BUGGY OPERATOR) to steady your nerves or to get [...] of 2 - PCV) 06/01/2021 06/01/2020, 01/28/2016 [id number] Vaccine (1 - season) 2025 [facility]-Influenza Vaccine [...] this topic Medical Devices Implanted Type Area Firesetter Device Identifier Shelf Expiration Date Model / Serial / Lot Chg Shell R3 3 Hole Acet 58mm - [id number] Implanted:Qty: 1 on 04/07/2022 by Fernando Ortiz MD at [facility] Right: Hip [employer]-[id number] 11/24/2031 [id number] / / [id number] Liner Or3o Dual Mbility 44 58 - [id number] Implanted:Qty: 1 on 04/07/2022 by Fernando Ortiz MD at [facility] Right: Hip [employer]-[id number] 02/02/2031 [id number] / / [id number] Chg Screw Ref Spher Head 30mm - [id number] Implanted:Qty: 1 on 04/07/2022 by Fernando Ortiz MD at [facility] Right: Hip [employer]-[id number] 11/10/2031 [id number] / / [id number] Liner Or3o Dual Mbility Xlpe 28 44 - [id number] Implanted:Qty: 1 on 04/07/2022 by Fernando Ortiz MD at [facility] Right: Hip [employer]-[id number] 07/22/2031 [id number] / / [id number] Chg Head Oxinium Fem 05/25 28m - [id number] Implanted:Qty: 1 on 04/07/2022 by Fernando Ortiz MD at [facility] Right: Hip [employer]-[id number] 11/23/2031 [id number] / / [id number] Chg Stem Syn Por Plus Panchal Ho Sz - [id number] Implanted:Qty: 1 on 04/07/2022 by Fernando Ortiz MD at [facility] Right: Hip [employer]-[id number] 09/26/2031 [id number] / / [id number] Insurance [place] Advance Directives Documents on File Type Date Recorded Patient Pre Billing Specialist Expl anation Advance Directives and Livin g Will 04/09/2022 10:04 AM * Full Code (Latest Code Status on File) Date Activated Date Inactivated Comments 04/07/2022 10:54 AM 04/08/2022 3:38 PM Question Answer Comments Patient has decision-making capacity? Yes Care Teams Checkerer Hand Relationship Specialty Start Date End Date Luis E Roque MD [address] [place] [address] JAM Bacon [address] PCP - General 10/23/20
--- NOTE | 2025-03-18 14:00 | MR_ITS ---
FINAL REPORT TECHNIQUE: Multiplanar and multisequence imaging of the shoulder was obtained without contrast. CLINICAL HISTORY: arm pain. limited rom COMPARISON: None FINDINGS: Bones and joints: There is no acute fracture, edema, or pathologic marrow replacement. Acromioclavicular joint degenerative disease is present and there is osteophytosis which narrows the supraspinatus outlet. There is also advanced degenerative joint disease involving the glenohumeral joint. There is posterior subluxation of the humeral head in the glenoid as well as a high riding humeral head. Rotator cuff: There are full-thickness tears of the supraspinatus and infraspinatus tendons. A few of the posterior infraspinatus fibers may be intact. The subscapularis tendon is likely ruptured, and there is fatty atrophy of all of the rotator cuff muscles identified. Labrum: No normal biceps labral complex is identified. The labrum is diffusely abnormal, with a small labrum and extensive degenerative labral tearing present. A single discrete tear is not identified. The inferior glenohumeral ligament is grossly intact, though thinned. The biceps tendon is likely torn. Other: There are very large effusions present in the subcoracoid and subdeltoid bursae, which are distended with fluid. Components of synovitis are present. IMPRESSION: 1. Advanced degenerative joint disease is present in the right shoulder. 2. There are complete tears of the supraspinatus and infraspinatus tendons, although a few fibers of the posterior infraspinatus tendon may be intact. The subscapularis tendon is likely ruptured, and there is fatty atrophy of all of the rotator cuff muscles. 3. No normal biceps labral complex is identified, and there are extensive degenerative labral changes. 4. A large joint effusion is present, with bursitis and synovitis. Reviewed, Interpreted and Dictated by Carolyne Fleming MD Transcribed by Anni Umana Authenticated and [facility]
== END 2025-03-18 23:59 | disposition home or self-care (01) ==
LOC: RAD 13:50
PROVIDERS: PCP Family Medicine; Visit Provider Specialist
DX: M19.011 Primary osteoarthritis, right shoulder (principal); M75.121 Complete rotator cuff tear or rupture of right shoulder, not specified as traumatic; M62.511 Muscle wasting and atrophy, not elsewhere classified, right shoulder; M25.411 Effusion, right shoulder; M75.51 Bursitis of right shoulder; G35.D Multiple sclerosis, unspecified; M65.911 Unspecified synovitis and tenosynovitis, right shoulder; R93.6 Abnormal findings on diagnostic imaging of limbs
CPT/HCPCS: 73221

== ENCOUNTER 2025-03-31 10:19 | Outpatient (CLI) | payer MEDICARE, OTHER, SELFPAY ==
[2025-03-31] MEDS: ACETAMINOPHEN 500MG TAB 1000 MG PO (10:30)
[2025-03-31] MEDS: METHYLPREDNISOLONE SOD SUCC 125MG VIAL 125 MG IV (10:31)
[2025-03-31] MEDS: OCRELIZUMAB 600 MG in 0.9 % SODIUM CHLORIDE 500 ML 100 MG IV (11:13)
[2025-03-31 11:26] VITALS: BP 180/75; PULSE 91; RESP 17; O2SAT 98
[2025-03-31 11:51] VITALS: BP 132/63; PULSE 76; RESP 18; O2SAT 98
[2025-03-31 12:06] VITALS: BP 140/71; PULSE 78; RESP 18; O2SAT 98
[2025-03-31 12:36] VITALS: BP 129/64; PULSE 73; RESP 18; O2SAT 98
[2025-03-31 13:43] VITALS: BP 126/63; PULSE 72; RESP 18; O2SAT 98
== END 2025-03-31 23:59 | disposition home or self-care (01) ==
PROVIDERS: PCP Family Medicine; Visit Provider Specialist
DX: G35.D Multiple sclerosis, unspecified (principal)
CPT/HCPCS: 96413; 96415; J1200; J2350; J2919; J7040

== ENCOUNTER 2025-05-24 14:37 | Emergency (ER) | payer MEDICARE, OTHER, SELFPAY ==
[2025-05-24 14:35] VITALS: BP 166/84; PULSE 120; RESP 20; TEMP 36.8; O2SAT 98; BMI 21.7
--- NOTE | 2025-05-24 14:56 | XR_ITS ---
PROCEDURE INFORMATION: Exam: XR Pelvis Exam date and time: 05/24/2025 4:20 PM Age: 64 years old Clinical indication: Injury or trauma; Fall; Blunt trauma (contusions or hematomas); Bilateral; Pelvic region TECHNIQUE: Imaging protocol: Radiologic exam of the pelvis. Views: 1 or 2 view. 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 Sacral arches are unremarkable. There is mild left hip osteoarthritis. No acute skeletal pathology. There is lumbar spondylosis. Soft tissues: Unremarkable. IMPRESSION: No acute skeletal pathology.
[2025-05-24 15:00] VITALS: BP 156/87; PULSE 110; RESP 18; O2SAT 100
--- NOTE | 2025-05-24 15:01 | HMH.EDGENADL ---
Discharge Plan Disposition Patient Disposition: Xfer Short-Term Hosp Condition: Fair Prescriptions Prescriptions: No Action duloxetine 30 mg capsule,delayed release(DR/EC) 30 mg PO DAILY Qty: 90 3RF oxybutynin chloride 10 mg tablet extended release 24hr 10 mg PO DAILY Qty: 30 5RF atorvastatin 80 mg tablet 80 mg PO Patient Comments: TAKE ONE TABLET BY MOUTH ONCE A DAY omeprazole 20 mg capsule,delayed release(DR/EC) 20 mg PO DAILY Patient Comments: TAKE ONE CAPSULE BY MOUTH ONCE A DAY metoprolol succinate 25 mg tablet extended release 24 hr 25 mg PO ONCE Patient Comments: TAKE 1 TABLET BY MOUTH EVERY DAY Nurtec ODT 75 mg tablet,disintegrating 75 mg PO ONCE PRN (Reason: migraine headache) Qty: 8 5RF Tylenol Extra Strength 500 mg powder in packet 500 mg PO Q6H PRN (Reason: Pain) albuterol sulfate 90 mcg/actuation HFA aerosol inhaler 1 inh INHALATION QID PRN (Reason: shortness of breath or wheezing) Qty: 8.5 12RF aspirin 81 mg tablet,delayed release (DR/EC) 81 mg PO DAILY Qty: 90 3RF Anoro Ellipta 62.5-25 mcg/actuation blister with device 1 inh inhalation DAILY Patient Comments: INHALE 1 PUFF BY MOUTH ONCE A DAY (DME) blood-glucose meter [True Metrix Glucose Meter] Misc See Rx Instructions .ROUTE .MEDSUPPLY Qty: 1 Patient Comments: USE DIRECTED Rx Instructions: As directed (DME) lancets [TRUEplus Lancets] 28 gauge misc See Rx Instructions .ROUTE .MEDSUPPLY Qty: 100 Patient Comments: USE DIRECTED Rx Instructions: As directed (DME) Blood Glucose Test Strip See Rx Instructions .Route Qty: 50 0RF Rx Instructions: As directed (DME) lancets Misc See Rx Instructions .Route Qty: 100 0RF Rx Instructions: As directed (DME) blood-glucose meter [Blood Glucose Monitoring] Kit See Rx Instructions .Route Qty: 1 0RF Rx Instructions: As directed cyanocobalamin (vitamin B-12) 1,000 mcg/mL kit 1,000 mcg SQ QMONTH baclofen 10 mg tablet 10 mg PO TID Qty: 90 5RF gabapentin 600 mg tablet 600 mg PO TID 30 Days Qty: 90 5RF tramadol 50 mg tablet 50 mg PO TID Qty: 90 5RF Referrals Follow up/Referrals: Eduardo Almanza MD [Primary Care Provider, Family Practice] - See instructions Clinical Impressions Clinical Impression: Fall Acute kidney failure Qualifiers: Acute renal failure type: unspecified Qualified Code(s): N17.9 - Acute kidney failure, unspecified Stand Alone Forms Stand Alone Forms: Transfer Record - ED Instructions Patient Instructions: DI for Kidney Failure, Acute Kidney Injury Print Language Print Language: Honduran Discharge ED Provider: Bernard Lopez General Adult HPI General Chief complaint: Fall Stated complaint: FALL Time Seen by Provider: 05/24/25 14:45 Mode of Arrival: EMS Source of Information: Patient Description of Symptoms (Recalled from ER Triage Doc. by RN): pt was brought in by ems from fall from bed, [facility] pt mainly complaines of butt bone pain, hx of cva and MS. per ems fbs was 202 History of Present Illness HPI narrative: 64-year-old male presents for a fall. Patient was brought in by EMS this a.m. Patient is a resident to assisted living per sister he lives in her apartment below the detention and they bring him his meals and check on him. On patient had fallen and refused to be evaluated. This a.m. when they went down he was laying on the floor and was unable to get up. Patient states his butt hurts Related Data Home Medications ?Medication ?Instructions ?Recorded ?Confirmed acetaminophen 500 mg oral powder 500 mg PO Q6H PRN Pain 11/17/22 03/31/25 packet (Tylenol Extra Strength) cyanocobalamin (vitamin B-12) 1,000 mcg SQ QMONTH 05/17/23 03/31/25 1,000 mcg/mL injection kit umeclidinium 62.5 mcg-vilanterol 1 inh inhalation DAILY 10/08/24 03/31/25 25 mcg/actuation powdr for inhalation (Anoro Ellipta) atorvastatin 80 mg tablet 80 mg PO 03/04/25 03/31/25 metoprolol succinate 25 mg 25 mg PO ONCE 03/04/25 03/31/25 tablet,extended release 24 hr omeprazole 20 mg capsule,delayed 20 mg PO DAILY 03/04/25 03/31/25 release blood-glucose meter (True Metrix #1 ea 03/20/25 03/31/25 Glucose Meter) lancets 28 gauge (TRUEplus Lancets) #100 ea 03/20/25 03/31/25 Previous Rx's ?Medication ?Instructions ?Recorded albuterol sulfate 90 mcg/actuation 1 inh inhalation QID PRN shortness 05/31/24 aerosol inhaler of breath or wheezing #8.5 grams aspirin 81 mg tablet,delayed 81 mg PO DAILY heart health #90 05/31/24 release tabs duloxetine 30 mg capsule,delayed 30 mg PO DAILY #90 caps 09/16/24 release oxybutynin chloride 10 mg 10 mg PO DAILY #30 tabs 09/16/24 tablet,extended release 24 hr baclofen 10 mg tablet 10 mg PO TID #90 tabs 12/09/24 blood sugar diagnostic (Blood #50 ea 01/09/25 Glucose Test strips) blood-glucose meter (Blood Glucose #1 ea 01/09/25 Monitoring kit) lancets #100 ea 01/09/25 rimegepant 75 mg disintegrating 75 mg PO ONCE PRN migraine 03/04/25 tablet (Nurtec ODT) headache #8 tabs gabapentin 600 mg tablet 600 mg PO TID NEUROPATHY 30 days 04/28/25 #90 tabs tramadol 50 mg tablet 50 mg PO TID #90 tabs 04/28/25 Allergies Allergy/AdvReac Type Severity Reaction Status Date / Time No Known Allergies Allergy Verified 03/31/25 09:34 [facility] Disclaimer: The information contained in this section may have been updated after the patient was seen, as this information can be updated by other users. Medical History Injury of right rotator cuff Rotator cuff tear Episodic migraine Initially noticed following Ocrevus infusion and currently asymptomatic. Symptomatic improvement with Nurtec ODT 75 mg p.o. as needed in the past. Diabetes Screening for prostate cancer Lung nodule Hyperlipidemia LDL goal <55 Pneumonia November 2023-resolved Cognitive communication deficit Unspecified abnormalities of gait and mobility Depression Smoking greater than 30 pack years Multiple pulmonary nodules Tobacco abuse Dyspnea on exertion Bilateral impacted cerumen CVA, old, dysarthria Mild aortic regurgitation Heart murmur COPD (chronic obstructive pulmonary disease) Foraminal stenosis of cervical region Cervical spondylosis Hip osteoarthritis DDD (degenerative disc disease), thoracic Hip pain, right Multiple sclerosis Stable on Ocrevus infusion every 6 months Chronic back pain Surgical History History of total right hip arthroplasty Family History Other Asthma Cancer Hypertension Stroke Thyroid disorder Social History Smoking Status: Never smoker alcohol intake: former substance use type: former substance user and marijuana current occupational status: disabled Travel in the last 8 weeks?: None household members: caregiver housing: house marital status: current occupational exposures/hazards: No caffeine: Yes Have you lived/traveled outside [place] in past 30 days?: No Contact w/someone who lives/traveled outside [place] past 30 days?: No Exposure to someone with infectious disease in past 14 days?: No Do you have a fever (greater than 100.4 F or 38 C)?: No Have you tested positive for COVID-19?: No Exposed to someone with COVID-19 in past 14 days?: No Do you have a sore throat?: No Do you have a cough?: No Do you have any weakness?: No Do you have any diarrhea?: No Are you experiencing any unusual bleeding?: No Do you have any muscle aches/pain?: No Do you have any abdominal pain?: No Are you experiencing loss of taste or smell?: No Other Medical History Have you received the Flu Vaccine for this season: Yes Have you received the Pneumonia Vaccine: Yes ROS Obtained: Yes Systems reviewed as appropriate & no additional complaints except as documented Musculoskeletal Musculoskeletal: Reports system reviewed and no additional complaints, except as documented, Reports as per HPI and Reports arthralgias Physical Exam General General appearance: alert Respiratory Respiratory exam: Present normal lung sounds bilaterally Cardiovascular Cardiovascular exam: Present regular rate and normal rhythm Abdominal Exam Abdominal exam: Present soft and normal bowel sounds; Absent tenderness Expanded Upper Extremity Exam Right: Shoulder exam: Present tenderness, swelling (Shoulder) and deformity Expanded Lower Extremity Exam Right: Hip/Pelvis exam: Present tenderness Neurovascular/Tendon exam: Present normal capillary refill Back Exam Back exam: Present normal inspection and full ROM; Absent tenderness Neurological Exam Neurological exam: Present alert and oriented X3 Skin Skin exam: Present warm and intact Medical Decision Making Medical Records Medical records reviewed: Yes I reviewed the patient's medical records. Screening: Per USPSTF and CDC recommendations, given the prevalence of disease in our region, it is our hospital?s policy to screen for HIV and viral Hepatitis for all patients aged 18 and over and those with ongoing risk factors. Sen Inquiry Pt receiving controlled substance: No Sen was queried for this patient: No Vital Signs: 05/24/25 14:35 05/24/25 15:00 05/24/25 15:06 Temperature 98.3 F Temperature Source Oral Pulse Rate 110 H Pulse Rate [Left Radial] 120 H Respiratory Rate 20 18 Blood Pressure 156/87 H Blood Pressure [Right Arm] 166/84 H Blood Pressure Mean 131 Blood Pressure Mean [Right Arm] 111 02 Sat by Pulse Oximetry 98 100 99 Oxygen Delivery Method Room Air Room Air 05/24/25 15:30 Temperature Temperature Source Pulse Rate 113 H Pulse Rate [Left Radial] Respiratory Rate 18 Blood Pressure 162/91 H Blood Pressure [Right Arm] Blood Pressure Mean 131 Blood Pressure Mean [Right Arm] 02 Sat by Pulse Oximetry 100 Oxygen Delivery Method Lab Data Lab results reviewed: Yes I reviewed the patient's lab results. Lab Results 05/24/25 14:30: WBC 22.4 H*, RBC 3.24 L, Hgb 8.6 L, Hct 26.0 L, MCV 80.2, MCH 26.5 L, MCHC 33.1, RDW 16.5, Plt Count 738 H, MPV 9.6, Neut % (Auto) 89.1 H, Lymph % (Auto) 2.5 L, [place] % (Auto) 7.1, Eos % (Auto) 0.1, Baso % (Auto) 0.4, Neut # (Auto) 19.9 H, Lymph # (Auto) 0.6 L, [place] # (Auto) 1.6 H, Eos # (Auto) 0.0, Baso # (Auto) 0.1, Total Counted 100, Neutrophils % (Manual) 89 H, Lymphocytes % (Manual) 3 L, Monocytes % (Manual) 8, Platelet Estimate Marked increase, RBC Morphology Normal, Sodium 141, Potassium 4.3, Chloride 111 H, Carbon Dioxide < 5 L*, Anion Gap 29.3 H, BUN 155 H*, Creatinine 12.00 H, Estimated Creat Clear 6, Estimated GFR 4 L*, Est GFR ( Amer) 5 L*, Glucose 168 H, Calcium 8.9, Total Bilirubin 0.4, AST 15 L, ALT 11 L, Alkaline Phosphatase 123, Total Creatine Kinase 96, Total Protein 8.0, Albumin 4.4, Globulin 3.6 H, Albumin/Globulin Ratio 1.2 05/24/25 15:45: Lactate 0.8 05/24/25 15:55: Urine Color Yellow, Urine Appearance Clear, Urine pH 6.0, Ur Specific [place] 1.020, Urine Protein 2+ A, Urine Glucose (UA) Negative, Urine Ketones Negative, Urine Blood 2+ A, Urine Nitrate Negative, Urine Bilirubin Negative, Urine Urobilinogen 0.2, Ur Leukocyte Esterase 3+ A, Urine RBC None, Urine WBC Tntc, Ur Squamous Epith Cells None, Urine Bacteria 4+ 05/24/25 15:56: VBG pH 7.10 L, VBG pCO2 22.3 L, VBG pO2 69.5 H, VBG HCO3 6.8 L, VBG Total CO2 7.4 L, VBG O2 Saturation 92.4 H, VBG Base Excess -22.9 L, VBG Lactic Acid 1.7 05/24/25 14:30 05/24/25 14:30 Orders (Tests/Meds): ED MEDICATIONS Generic Name Dose Route Start Last Admin Trade Name Maulikq PRN Reason Stop Dose Admin Ceftriaxone Sodium 2 gm/ 100 mls @ 200 mls/hr 05/24/25 16:19 05/24/25 16:30 Sodium Chloride IV 05/24/25 16:48 200 mls/hr ONCE ONE Administration ORDERS Category Date Time Status XR pelvis 1-2V Stat Exams 05/24/25 14:56 Taken CBC w/Auto Diff [Complete Blood Count Auto Diff] Stat Lab 05/24/25 14:30 Completed CK [Creatine Kinase] Stat Lab 05/24/25 14:30 Completed CMP [Comprehensive Metabolic Panel] Stat Lab 05/24/25 14:30 Completed Lactic Acid Stat Lab 05/24/25 15:45 Completed Urinalysis and Microscopic Stat Lab 05/24/25 15:55 Completed Blood Culture Stat Micro 05/24/25 15:45 Received Urine Culture Stat Micro 05/24/25 15:55 Received Venous Blood Gas Stat RT 05/24/25 15:56 Completed Medical Decision Narrative: In summary patient is a 64-year-old male who presents to the emergency department for evaluation of fall. Patient is hemodynamically stable upon arrival, afebrile. Tenderness to right hip, right shoulder swollen and tender. Differential diagnosis includes sepsis, rhabdo, UTI, kidney failure, fracture. Initial workup will be conducted with labs, x-ray, CT,. Initial inventions include bolus, urine, labs. Initial workup reviewed by [facility] labs shows a creatinine of 12 cre GFR 4, BUN 155, pH 7.1, white blood cell 22.4, H&H 8.6 and 26, platelets 738.. Upon repeat evaluation due to elevated kidney function we will transfer to Dr. Thomas excepted patient for transfer EMS call Critical Care Critical Care Time Critical Care Time: Yes Attestation: On 05/24/25, the high probability of a clinically significant, sudden or life threatening deterioration of the following system(s) required my full and direct attention, intervention and personal management. The time I documented below is in addition to time spent performing reported procedures but includes the following listed in this critical care notation. Total Time Total Critical Care Time: 30
--- OUTSIDE RECORDS SUMMARY | 2025-05-24 15:01 | XMS_ITS | Clinical Summary ---
Author Organization [facility] Address [address] [place] [address] Care Team Providers Care Glass Crusher Name Role Phone Enrico Roque MD Primary [...] therelease of HIV test results or diagnoses. 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
--- OUTSIDE RECORDS SUMMARY | 2025-05-24 15:01 | XMS_ITS | Clinical Summary ---
Author Organization [facility] Address [address] [place] [address] Phone Care Team Providers Care Pediatrics Physician Name Role Phone Unavailable Primary Care Provider [...] 2) 2009 AAA Screening 2024 COVID-19 Vaccine (2024-2 6 season) 2025 Influenza Vaccine (#1) 2025 Hepatitis B Vaccine Aged Out No longe r eligible based on patient's age to complete this topic Meningococcal B Vaccine Aged Out No l onger eligible based on patient's age to complete this topic Insurance MEDICAID [place] [address]
--- OUTSIDE RECORDS SUMMARY | 2025-05-24 15:01 | XMS_ITS ---
Author Organization Unknown TREATMENT PLAN Planned [facility] Start Date Provider Encounter for Check-up [phone] [facility]
--- OUTSIDE RECORDS SUMMARY | 2025-05-24 15:01 | XMS_ITS | Clinical Summary ---
Author Organization [facility] Address [address] [place] [address] Care Team Providers Care Flaring Machine Operator Name Role Phone Luis E Roque MD Primary Care Provider + [phone] Allergies No known active allergies Medications DULoxetine [...] (01/19/2022): Added automatically from request for surgery [id number] Immunizations Immunization Administration Dates Next Due Pneumococcal [...] drink first t marcin in the morning (EYE-RUN BOAT OPERATOR) to steady your nerves or to [...] Date Last Done Comments [facility]-Depression Screening 1959 [facility]-Infant/Child/Adol SDOH Screenings 1959 [facility]- SDOH Screenings 1977 [facility]Y-Adult SDOH Screenings 1977 [facility]Y-DTaP,Tdap,and Td Vaccine s (1 - Tdap) 1978 CT Colonography 2004 Colonoscopy 2004 FIT-DNA 2004 FIT 2004 FOBT 2004 Sigmoidoscopy 2004 [facility]Y-Colorectal Cancer Screening 2004 [facility]Y-Zoster Vaccines (1 of 2) 2009 [facility]-Pneumococcal Vaccine: 50 + Years (2 of 2 - PCV) 06/01/2021 06/01/2020, 01/28/2016 [id number] Vaccine (1 - 2024- season) 2025 [facility]-Influenza Vaccine (#1) 02/10/202506/01, 07/24/2018, 02/26/2013 [facility]Y-RSV Vaccine: 60+ Years o r (1 - 1-dose 75+ series) 2034 HPV Vaccines (No Doses Required) Completed UKY-HIB Vaccines Aged Out No longer e [...] this topic Medical Devices Implanted Type Area Retail Loss Prevention Officer Device Identifier Shelf Expiration Date Model / Serial / Lot Chg Shell R3 3 Hole Acet 58mm - [id number] Implanted:Qty: 1 on 04/07/2022 by Fernando Ortiz MD at [facility] Right: Hip [employer]-[id number] 11/24/2031 [id number] / / [id number] Liner Or3o Dual Mbility 44 58 - [id number] Implanted:Qty: 1 on 04/07/2022 by Fernando Ortiz MD at [facility] Right: Hip [employer]-[id number] 02/02/2031 [id number] / / [id number] Chg Screw Ref Spher Head 30mm - [id number] Implanted:Qty: 1 on 04/07/2022 by Fernando Ortiz MD at [facility] Right: Hip [employer]-[id number] 11/10/2031 [id number] / / [id number] Liner Or3o Dual Mbility Xlpe 28 44 - [id number] Implanted:Qty: 1 on 04/07/2022 by Fernando Ortiz MD at [facility] Right: Hip [employer]-[id number] 07/22/2031 [id number] / / [id number] Chg Head Oxinium Fem 05/25 28m - [id number] Implanted:Qty: 1 on 04/07/2022 by Fernando Ortiz MD at [facility] Right: Hip [employer]-[id number] 11/23/2031 [id number] / / [id number] Chg Stem Syn Por Plus Panchal Ho Sz - [id number] Implanted:Qty: 1 on 04/07/2022 by Fernando Ortiz MD at [facility] Right: Hip [employer]-[id number] 09/26/2031 [id number] / / [id number] Insurance [place] Advance Directives Documents on File Type Date Recorded Patient Pediatric Rn Expl anation Advance Directives and Livin g Will 04/09/2022 10:04 AM * Full Code (Latest Code Status on File) Date Activated Date Inactivated Comments 04/07/2022 10:54 AM 04/08/2022 3:38 PM Question Answer Comments Patient has decision-making capacity? Yes Care Teams Flaring Machine Operator Relationship Specialty Start Date End Date Luis E Roque MD [address] [facility] J[place] Bacno [address] PCP - General 10/23/20
[2025-05-24 15:06] VITALS: O2SAT 99
[2025-05-24 15:09] LABS: Chloride 111 mmol/L (98-107)
[2025-05-24 15:10] LABS: Albumin Level 4.4 g/dl (3.5-5.0); Potassium 4.3 mmoL/L (3.5-5.1); Sodium 141 mmol/L (136-145)
[2025-05-24 15:11] LABS: Hematocrit 26.0 % (42.0-52.0); Hemoglobin 8.6 g/dL (14.1-18.0); Immature Granulocytes % 0.8 %; Mean Corpuscular HGB Conc 33.1 g/dL (31.8-35.4); Mean Corpuscular Hemoglobin 26.5 pg (27.0-31.2); Mean Corpuscular Volume 80.2 fl (80-94); Nucleated Red Blood Cells % 0 %; Platelet Count 738 K/mm3 (142-424); Red Blood Count 3.24 M/mm3 (4.60-6.20); Red Cell Distribution Width-SD 48.8 fL; White Blood Count 22.4 K/mm3 (4.8-10.8)
[2025-05-24 15:12] LABS: Alanine Aminotransferase 11 U/L (12-78); Aspartate Amino Transferase 15 U/L (17-59); Creatinine Clearance Estimated 6 mL/min (50-200); Estimated Glomerular Filt Rate 4 ml/min (>60); GFR (African American) 5 ML/MIN (>60)
[2025-05-24 15:13] LABS: Albumin/Globulin Ratio 1.2 (1.1-1.8); Alkaline Phosphatase 123 U/L (38-126); Bilirubin,Total 0.4 mg/dl (0.2-1.3); Calcium 8.9 mg/dl (8.4-10.2); Globulin 3.6 g/dL (1.3-3.2); Glucose 168 mg/dl (74-100); Total Protein,Serum 8.0 g/dl (6.3-8.2)
[2025-05-24 15:30] VITALS: BP 162/91; PULSE 113; RESP 18; O2SAT 100
[2025-05-24 15:31] LABS: Total Cells Counted 100
[2025-05-24 15:32] LABS: RBC Morphology Normal
[2025-05-24 15:53] LABS: Anion Gap 29.3 mEq/L (5-15)
[2025-05-24 15:54] LABS: Carbon Dioxide < 5 mmol/L (22.0-30.0)
[2025-05-24 15:55] LABS: Blood Urea Nitrogen 155 mg/dl (9-20); Creatinine,Serum 12.00 mg/dl (0.66-1.25)
[2025-05-24 15:59] LABS: Creatine Kinase 96 U/L (55-170)
[2025-05-24 16:01] LABS: Microscopic, Urine URINE MICROSCOPIC (MICROSCOPIC)
--- NOTE | 2025-05-24 16:03 | PC.NURSE ---
called [facility] per Karina JASSO for pt transfer for Acute Renal Failure. Will call back.
[2025-05-24 16:04] LABS: Bilirubin,Urine Negative (Negative); Color,Urine YELLOW (Yellow); Glucose,Urine (UA) Negative (Negative); Ketones,Urine Negative (Negative); Leukocyte Esterase,Urine 3+ (Negative); PH,Urine 6.0 (5.0-8.5); Protein,Urine 2+ (Negative); Specific Gravity, Urine 1.020 (1.005-1.030); Urobilinogen,Urine 0.2 EU/dl (0.2)
[2025-05-24 16:10] LABS: Lactate Venous 1.7 mmol/L (0.4-2.0); VBG HCO3 6.8 mmol/L (23-30); VBG PO2 69.5 mmol/L (28-40)
[2025-05-24 16:12] LABS: VBG PCO2 22.3 mmol/L (35-51); VBG PH 7.10 mmol/L (7.31-7.41)
[2025-05-24 16:27] LABS: Bacteria,Urine 4+ /lpf; WBC,Urine TNTC #/hpf (0-3)
[2025-05-24 17:45] VITALS: BP 187/83; PULSE 108; RESP 20; TEMP 37; O2SAT 99
[2025-05-24 17:50] VITALS: BP 187/93; PULSE 113; RESP 20; TEMP 36.8; O2SAT 98
[2025-05-26 06:00] LABS: Acinetobacter calcoaceticus-ba Not Detected; Bacteroides fragilis Not Detected; Candida auris Not Detected; Candida glabrata Not Detected; Enterobacterales Not Detected; Enterococcus faecalis Not Detected; Enterococcus faecium Not Detected; Klebsiella aerogenes Not Detected; Klebsiella pneumoniae grp Not Detected; Proteus spp. Not Detected; Salmonella spp. Not Detected; Serratia marcescens Not Detected; Staphylococcus epidermidis Not Detected; Staphylococcus lugdunensis Not Detected; Staphylococcus spp. Not Detected; Stenotrophomonas maltophilia Not Detected; Streptococcus agalactiae(GrpB) Not Detected; Streptococcus pyogenes Group A Not Detected; Streptococcus spp. Not Detected
== END 2025-05-24 17:50 | disposition short-term general hospital (02) ==
PROVIDERS: Nurse Practitioner Family; Emergency Provider Student in an Organized Health Care Education/Training Program; PCP Family Medicine
DX: N17.9 Acute kidney failure, unspecified (principal); M25.551 Pain in right hip; M25.511 Pain in right shoulder; W19.XXXA Unspecified fall, initial encounter
CPT/HCPCS: 72170; 80053; 81001; 82550; 82803; 83605; 85007; 85025; 87040; 87077; 87086; 87088; 87154; 96365; 99285; J0696